=== PATIENT | female | born 1940 | race Caucasian/White ===

== ENCOUNTER → 2018-03-09 | Outpatient (CLI) | payer MEDICARE, OTHER ==
[2018-03-09 13:56] LABS: ABSOLUTE BASOPHILS # (AUTO) 0.1 10^3/uL (0.0-0.2); ABSOLUTE EOSINOPHILS # (AUTO) 0.1 10^3/uL (0.0-0.6); ABSOLUTE LYMPHOCYTES (AUTO) 1.6 10^3/uL (0.5-4.7); ABSOLUTE MONOCYTES (AUTO) 0.7 10^3/uL (0.1-1.4); ABSOLUTE NEUT (AUTO) 4.6 10^3/uL (1.7-8.2); BASOPHILS % (AUTO) 0.7 % (0-2); HEMATOCRIT 31.8 % (36.0-47.0); HEMOGLOBIN 10.8 g/dL (12.0-15.5); LYMPHOCYTES % (AUTO) 22.4 % (13-45); MEAN CORPUSCULAR HEMOGLOBIN 35.6 pg (27.0-33.4); MEAN CORPUSCULAR HGB CONC 33.9 g/dL (32.0-36.0); MEAN CORPUSCULAR VOLUME 105 fl (80-97); MONOCYTES % (AUTO) 10.4 % (3-13); PLATELET COUNT 189 10^3/uL (150-450); RED BLOOD COUNT 3.03 10^6/uL (3.72-5.28); RED CELL DISTRIBUTION WIDTH 14.4 % (11.5-14.0); SEGMENTED NEUTROPHILS % (AUTO) 64.5 % (42-78); TOTAL CELLS COUNTED % (AUTO) 100 %; WHITE BLOOD COUNT 7.1 10^3/uL (4.0-10.5)
[2018-03-09 14:03] LABS: APPEARANCE,URINE SLIGHTLY-CLOUDY; BILIRUBIN,URINE NEGATIVE (NEGATIVE); COLOR,URINE YELLOW; GLUCOSE, URINE NEGATIVE (NEGATIVE); KETONES,URINE NEGATIVE (NEGATIVE); LEUKOCYTE ESTERASE,URINE TRACE (NEGATIVE); NITRITE,URINE NEGATIVE (NEGATIVE); PROTEIN,URINE NEGATIVE (NEGATIVE); UROBILINOGEN,URINE NEGATIVE mg/dL (<2.0)
[2018-03-09 14:22] LABS: ANION GAP 14 (5-19); BLOOD UREA NITROGEN 24 mg/dL (7-20); CALCIUM 9.6 mg/dL (8.4-10.2); CARBON DIOXIDE 27 mmol/L (22-30); CHLORIDE 105 mmol/L (98-107); GLUCOSE 99 mg/dL (75-110); SODIUM 145.8 mmol/L (137-145)
--- NOTE | 2018-03-09 14:24 | RADIOLOGY REPORT (SQ) ---
EXAM DESCRIPTION: CHEST PA/LATERAL COMPLETED DATE/TIME: 03/09/2018 1:55 pm REASON FOR STUDY: ESSENTIAL (PRIMARY) HYPERTENSION COMPARISON: Two-view chest 02/08/2008 EXAM PARAMETERS: NUMBER OF VIEWS: two views TECHNIQUE: Digital Frontal and Lateral radiographic views of the chest acquired. RADIATION DOSE: NA LIMITATIONS: none FINDINGS: LUNGS AND PLEURA: No opacities, masses or pneumothorax. No pleural effusion. MEDIASTINUM AND HILAR STRUCTURES: No masses or contour abnormalities. HEART AND VASCULAR STRUCTURES: Heart normal size. No evidence for failure. BONES: Osteoporotic. No acute fracture. Old healed left lower lateral rib fractures HARDWARE: Clips right upper quadrant post cholecystectomy OTHER: No other significant finding. IMPRESSION: No acute findings TECHNICAL DOCUMENTATION: JOB ID: [id number] [employer]- All Rights Reserved Reading location - IP/workstation name: [facility]-[email or web address]
--- NOTE | 2018-03-09 18:28 | EKG REPORT ---
SEVERITY:- NORMAL ECG - SINUS RHYTHM : Confirmed by: Fernando Garcia MD 09-Mar-2018 18:27:20
== END ==
LOC: OD 13:19
PROVIDERS: ATTEND Orthopaedic Surgery
DX: I10 Essential (primary) hypertension (principal)
CPT/HCPCS: 36415; 71046; 80048; 81001; 85025; 93005; 93010

== ENCOUNTER 2018-04-06 06:42 | Inpatient (IN) | payer MEDICARE, OTHER ==
[~2018-04-06 06:42] MED LIST: BUPIVACAINE INJ/PF LIPOSOME/PF 266 MG/20 ML SDV INJ PRN; BUPIVACAINE INJ/PF LIPOSOME/PF 266 MG/20 ML SDV ONE; CEFTRIAXONE INJ 1000 MG VIAL IV PRN; IBUPROFEN 800 MG in NORMAL SALINE 250 ML IV SCH; LACTATED RINGERS 1000 ML IV PRN; LANSOPRAZOLE 15 MG TAB.RAP.DR PO PRN; LIDOCAINE 0.5% INJ-PF (5 MG/ML) 50 ML SDV SUBCUT PRN; OXYCODONE HCL SR 10 MG TABLET PO PRN; VANCOMYCIN HCL 1,000 MG in DEXTROSE 5%-WATER 250 ML IV PRN
[2018-04-06] MEDS ORDERED: FENTANYL CITRATE INJ/PF 250 MCG/5 ML AMPULE ONE (06:59)
[2018-04-06] MEDS ORDERED: MIDAZOLAM 2 MG/2 ML INJ ONE (06:59)
[2018-04-06] MEDS ORDERED: FENTANYL CITRATE INJ/PF 100 MCG/2 ML AMPUL ONE ×2 (06:59→11:32)
[2018-04-06] MEDS ORDERED: ACETAMINOPHEN 0 MG/0 ML RTUPB IV ONE (07:00)
[2018-04-06] MEDS ORDERED: MORPHINE SULFATE 10 MG/ML INJ ONE (07:00)
[2018-04-06] MEDS ORDERED: PROPOFOL INJ 200 MG/20 ML VIAL IV ONE (07:00)
[2018-04-06] MEDS ORDERED: EPHEDRINE SULFATE INJ 50 MG/1 ML AMPULE ONE (07:00)
[2018-04-06] MEDS ORDERED: LIDOCAINE 2% INJ-PF (20 MG/ML) 10 ML AMPUL ONE (07:28)
[2018-04-06] MEDS ORDERED: CEFAZOLIN INJ 1 GM VIAL ONE (08:02)
[2018-04-06] MEDS ORDERED: TRANEXAMIC ACID INJ/PF 1,000 MG/10 ML SDV IV ONE (08:07)
[2018-04-06] MEDS ORDERED: FENTANYL CITRATE INJ/PF 100 MCG/2 ML AMPUL IV PRN ×3 (09:42)
[2018-04-06] MEDS ORDERED: DIPHENHYDRAMINE HCL 50 MG/ML VIAL IV PRN ×2 (09:42→10:53)
[2018-04-06] MEDS ORDERED: MORPHINE SULFATE 10 MG/ML INJ IV PRN ×3 (09:42→10:53)
[2018-04-06] MEDS ORDERED: PROMETHAZINE HCL INJ 25 MG/1 ML VIAL IV PRN (09:42)
--- NOTE | 2018-04-06 10:51 | Operative Report ---
Operative Report DATE OF SURGERY: 04/06/18 PREOPERATIVE DIAGNOSIS: Right rotator cuff arthropathy OPERATION: Right reverse shoulder arthroplasty SURGEON: DARRELL ESCOBAR ANESTHESIA: GA TISSUE REMOVED OR ALTERED: Bone to pathology COMPLICATIONS: Spiral fracture of the humeral shaft ESTIMATED BLOOD LOSS: 100 PROCEDURE: With the patient in a beachchair position on the operative table the right upper extremity forequarter prepped and draped in a sterile fashion. A standard deltopectoral approach to the shoulders taken. The humeral head is exposed. Access gained through the articular surface to the humeral canal. It subsequently reamed using a cylindrical reamer from the [employer] total shoulder system and hand reaming until a 13 mm or is seated. Subsequently was broached until a 13 broach is seated. My clinical intuition is that the 13 broach was small and did not have cortical contact. It subsequently removed and the canal was next reamed to a 14 mm reamer. During the process of the 14 mm reamer with a cylindrical reamer and hand control a spiral fracture to the humeral shaft is encountered. The 13 reamer is then placed down the humeral canal and the fracture exposed. The radial nerve is closed and protected throughout its course. 3 cables were placed around the humeral fracture with the underlying reamer in place. A size 12 long fracture stem was placed down the humeral canal. The fracture reduction and stability are assessed using fluoroscopy. It appears that the fracture stem which is the longest available just barely bypasses the distal aspect of the fracture. The glenoid is now exposed. Central pin is placed through the glenoid followed by a face reamer. The 28 mm glenoid baseplate is screwed in position with a single central screw and 4 rim screws. The 36 mm glenoid sphere is impacted onto the glenoid baseplate. A 4 mm polyethylene spacer was placed onto the proximal humerus for trial reduction. A trial reduction is performed and there is acceptable stability with the reduction. The trial proximal humerus component is removed. The final was impacted into position. The shoulder is reduced. The anterior capsule and subscapularis are reapproximated to the proximal humerus using #2 FiberWire suture. The wound is nicolette irrigated with pulse lavage. Is closed using Vicryl followed by lynne. Sterile compressive dressing and shoulder immobilizer applied.
[2018-04-06] MEDS ORDERED: ONDANSETRON HCL INJ/PF 4 MG/2 ML SDV IV PRN (10:53)
[2018-04-06] MEDS ORDERED: ACETAMINOPHEN 325 MG TABLET PO PRN (10:53)
[2018-04-06] MEDS ORDERED: MORPHINE SULFATE 10 MG/ML INJ IM PRN (10:53)
[2018-04-06] MEDS ORDERED: ZOLPIDEM TARTRATE 5 MG TABLET PO PRN (10:53)
[2018-04-06] MEDS ORDERED: MAG HYDROX/AL HYDROX/SIMETH SUSP 30 ML UDCUP PO PRN (10:53)
[2018-04-06] MEDS ORDERED: RINGERS SOLUTION,LACTATED 1,000 ML IV PRN (10:53)
[2018-04-06] MEDS ORDERED: ONDANSETRON 4 MG TAB.RAPDIS PO PRN (10:53)
--- NOTE | 2018-04-06 11:07 | RADIOLOGY REPORT (SQ) ---
EXAM DESCRIPTION: SHOULDER RIGHT 1 VIEW; NO CHG FLUORO COMPLETED DATE/TIME: 04/06/2018 10:58 am REASON FOR STUDY: RIGHT SHOULDER ARTHROPLASTY ASSISTED W/ FLUORO IN OR M19.111 POST-TRAUMATIC OSTEO ARTHRITIS, RIGHT SHOULDER COMPARISON: None. FLUOROSCOPY TIME: Less than 5 seconds 1 digital radiographic image saved to PACS. TECHNIQUE: Intra-operative images acquired during surgical procedure to evaluate progress. NUMBER OF IMAGES: 1 digital radiographic image LIMITATIONS: None. FINDINGS: 1 image saved to PACS demonstrates the distal end of a humerus prosthesis with cerclage wi res around the bone. Spiral fracture [place] bone. IMPRESSION: Intra procedural imaging and fluoro COMMENT: Quality ID 145: Final reports for procedures using fluoroscopy that document radiation exp osure indices, or exposure time and number of fluorographic images (if radiation exposure indices are not available) Please consult full operative report of the attending physician for description of the procedure. TECHNICAL DOCUMENTATION: JOB ID: [id number] [employer]- All Rights Reserved Reading location - IP/workstation name: [email or web address]
--- NOTE | 2018-04-06 11:07 | RADIOLOGY REPORT (SQ) ---
EXAM DESCRIPTION: SHOULDER RIGHT 1 VIEW; NO CHG FLUORO COMPLETED DATE/TIME: 04/06/2018 10:58 am REASON FOR STUDY: RIGHT SHOULDER ARTHROPLASTY ASSISTED W/ FLUORO IN OR M19.111 POST-TRAUMATIC OSTEO ARTHRITIS, RIGHT SHOULDER COMPARISON: None. FLUOROSCOPY TIME: Less than 5 seconds 1 digital radiographic image saved to PACS. TECHNIQUE: Intra-operative images acquired during surgical procedure to evaluate progress. NUMBER OF IMAGES: 1 digital radiographic image LIMITATIONS: None. FINDINGS: 1 image saved to PACS demonstrates the distal end of a humerus prosthesis with cerclage wi res around the bone. Spiral fracture cap[place] band bone. IMPRESSION: Intra procedural imaging and fluoro COMMENT: Quality ID 145: Final reports for procedures using fluoroscopy that document radiation exp osure indices, or exposure time and number of fluorographic images (if radiation exposure indices are not available) Please consult full operative report of the attending physician for description of the procedure. TECHNICAL DOCUMENTATION: JOB ID: [id number] [employer]- All Rights Reserved Reading location - IP/workstation name: [email or web address]
--- NOTE | 2018-04-06 12:50 | RADIOLOGY REPORT (SQ) ---
EXAM DESCRIPTION: SHOULDER RIGHT 2 OR MORE VIEWS COMPLETED DATE/TIME: 04/06/2018 11:49 am REASON FOR STUDY: Post-op total shoulder COMPARISON: Intra procedural fluoro same date TECHNIQUE: Postoperative right shoulder two views AP and Y-view LIMITATIONS: None. FINDINGS: Post right shoulder prosthesis. Normal alignment at the glenohumeral joint. Cerclage wir es are present along the mid 3rd humeral diaphysis adjacent to an acute spiral fracture. Bones are osteoporotic. Right ribs, clavicle grossly intact. Skin lynne over the right upper arm. IMPRESSION: Post right shoulder prosthesis films. Normal alignment at the glenohumeral joint. Cerc oksana wires surround the mid 3rd right humeral diaphysis along a spiral fracture in good alignment. TECHNICAL DOCUMENTATION: JOB ID: [id number] [employer]- All Rights Reserved Reading location - IP/workstation name: [facility]
[2018-04-06] MEDS ORDERED: TRANEXAMIC ACID INJ/PF 1,000 MG/10 ML SDV IV SCH (13:00)
[2018-04-06] MEDS: OXYCODONE HCL IR 5 MG TABLET PO PRN (13:21)
[2018-04-06] MEDS: SENNOSIDES/DOCUSATE 8.6-50 MG 1 EACH TABLET PO SCH (17:20)
[2018-04-06] MEDS: GABAPENTIN 300 MG CAPSULE PO SCH (17:21)
[2018-04-06] MEDS ORDERED: (PENDING PHARMACY ID) (Carvedilol [Carvedilol] 25 MG) PO SCH (18:00)
[2018-04-06] MEDS ORDERED: NYSTATIN TOPICAL POWDER 15 GM TP ONE (19:30)
[2018-04-06] MEDS ORDERED: GLYCOPYRROLATE 1 MG/5 ML SYRINGE ONE (19:53)
[2018-04-06] MEDS ORDERED: SUCCINYLCHOLINE CHLORIDE INJ 200 MG/10 ML VIAL ONE (19:53)
[2018-04-06] MEDS ORDERED: NEOSTIGMINE METHYLSULFATE 10 MG/10 ML VIAL ONE (19:53)
[2018-04-06] MEDS ORDERED: DEXAMETHASONE SOD PHOSPHATE INJ 4 MG/1 ML VIAL ONE (19:53)
[2018-04-06] MEDS ORDERED: ONDANSETRON HCL INJ/PF 4 MG/2 ML SDV ONE (19:53)
[2018-04-06] MEDS ORDERED: VECURONIUM BROMIDE INJ 10 MG VIAL IV ONE (19:53)
[2018-04-06] MEDS ORDERED: PHENYLEPHRINE HCL INJ/PF 10 MG/1 ML SDV ONE (19:53)
[2018-04-06] MEDS: CARVEDILOL 12.5 MG TABLET PO SCH (20:49)
[2018-04-06] MEDS: OXYCODONE HCL SR 10 MG TABLET PO SCH (20:50)
[2018-04-06] MEDS: SIMVASTATIN 10 MG TABLET PO SCH (20:50)
[2018-04-06] MEDS: MAGNESIUM OXIDE 400 MG TABLET PO SCH (20:50)
[2018-04-06] MEDS ORDERED: (PENDING PHARMACY ID) (Magnesium Oxide [Magnesium] 400 MG) PO SCH (22:00)
[2018-04-06] MEDS ORDERED: VANCOMYCIN HCL 1,000 MG in DEXTROSE 5%-WATER 250 ML IV ONE (22:53)
[2018-04-06] MEDS: MORPHINE SULFATE 10 MG/ML INJ IV PRN (23:18)
[2018-04-07] MEDS: MORPHINE SULFATE 10 MG/ML INJ IV PRN (02:57)
[2018-04-07] MEDS: LANSOPRAZOLE 30 MG TAB.RAP.DR PO SCH (06:31)
[2018-04-07] MEDS: OXYCODONE HCL IR 5 MG TABLET PO PRN ×2 (06:31→14:53)
--- NOTE | 2018-04-07 06:44 | PDOC PROGRESS REPORT ---
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 Patient is complaining of chronic neck pain and pain in her arm. Physical Exam Vital Signs: Temp Pulse Resp BP Pulse Ox 36.8 C 83 17 131/57 H 96 04/06/18 23:27 04/06/18 23:27 04/06/18 20:00 04/06/18 23:27 04/06/18 23:27 Intake & Output 04/05/18 04/06/18 04/07/18 06:59 06:59 06:59 Intake Total 4594 Output Total 2100 Balance 2494 Physical Exam: Patient is an overweight middle-aged white female lying in hospital bed with an abduction pillow securing the right upper extremity. General appearance: PRESENT: mild distress Head exam: PRESENT: normocephalic Respiratory exam: PRESENT: unlabored Cardiovascular exam: PRESENT: RRR Vascular exam: PRESENT: normal capillary refill GI/Abdominal exam: PRESENT: soft Rectal exam: PRESENT: deferred Musculoskeletal exam: PRESENT: other - Right shoulder dressing is clean dry and intact. There is some small to moderate amount of surrounding ecchymosis. Radial nerve function is intact for both motor and sensory function. Neurological exam: PRESENT: alert, awake, oriented to person, oriented to place , oriented to time, oriented to situation. ABSENT: motor sensory deficit Psychiatric exam: PRESENT: appropriate affect, normal mood. ABSENT: homicidal ideation, suicidal ideation Skin exam: PRESENT: dry, intact, warm. ABSENT: cyanosis, rash Results Laboratory Results: 04/06/18 07:33 04/06/18 04/06/18 07:33 07:33 Potassium 4.3 Blood Type A NEGATIVE Antibody Screen NEGATIVE Impressions: Fluoroscopy 04/06/18 00:00 IMPRESSION: Intra procedural imaging and fluoro Shoulder X-Ray 04/06/18 00:00 IMPRESSION: Post right shoulder prosthesis films. Normal alignment at the glenohumeral joint. Cerclage wires surround the mid 3rd right humeral diaphysis along a spiral fracture in good alignment. Status: Imported from PACS Assessment & Plan - Diagnosis (1) Arthropathy of right shoulder Is this a current diagnosis for this admission?: Yes Plan: 77-year-old white female status post right shoulder arthroplasty. Plan for [facility] facility [facility] on . - Time Time Spent with patient: 15-24 minutes Anticipated discharge: SNF Within: within 48 hours
[2018-04-07 06:51] LABS: HEMATOCRIT 25.1 % (36.0-47.0); HEMOGLOBIN 8.5 g/dL (12.0-15.5); MEAN CORPUSCULAR HEMOGLOBIN 35.6 pg (27.0-33.4); MEAN CORPUSCULAR VOLUME 105 fl (80-97); PLATELET COUNT 152 10^3/uL (150-450); RED BLOOD COUNT 2.39 10^6/uL (3.72-5.28); RED CELL DISTRIBUTION WIDTH 14.1 % (11.5-14.0)
[2018-04-07 07:21] LABS: ANION GAP 11 (5-19); BLOOD UREA NITROGEN 29 mg/dL (7-20); CALCIUM 8.9 mg/dL (8.4-10.2); CARBON DIOXIDE 26 mmol/L (22-30); CHLORIDE 104 mmol/L (98-107); GLUCOSE 138 mg/dL (75-110); POTASSIUM 4.2 mmol/L (3.6-5.0); SODIUM 140.6 mmol/L (137-145)
[2018-04-07] MEDS ORDERED: (PENDING PHARMACY ID) (Duloxetine Hcl [Duloxetine Hcl] 60 MG) PO SCH (10:00)
[2018-04-07] MEDS ORDERED: (PENDING PHARMACY ID) (Telmisartan [Telmisartan] 40 MG) PO SCH (10:00)
[2018-04-07] MEDS ORDERED: (PENDING PHARMACY ID) (Simvastatin [Simvastatin] 20 MG) PO SCH (10:00)
[2018-04-07] MEDS: GABAPENTIN 300 MG CAPSULE PO SCH ×2 (10:16→17:04)
[2018-04-07] MEDS: PRENATAL VITAMIN W DHA CAPSULE PO SCH (10:16)
[2018-04-07] MEDS: POTASSIUM CHLORIDE 10 MEQ CAPSULE.ER PO SCH (10:16)
[2018-04-07] MEDS: ALLOPURINOL 100 MG TABLET PO SCH (10:16)
[2018-04-07] MEDS: DULOXETINE HCL 30 MG CAPSULE.DR PO SCH (10:16)
[2018-04-07] MEDS: OXYCODONE HCL SR 10 MG TABLET PO SCH ×2 (10:17→21:50)
[2018-04-07] MEDS: FUROSEMIDE 40 MG TABLET PO SCH (10:17)
[2018-04-07] MEDS: SENNOSIDES/DOCUSATE 8.6-50 MG 1 EACH TABLET PO SCH ×2 (10:17→17:04)
[2018-04-07] MEDS: FOLIC ACID 1 MG TABLET PO SCH (10:17)
[2018-04-07] MEDS: LOSARTAN POTASSIUM 50 MG TABLET PO SCH (10:18)
[2018-04-07] MEDS: NYSTATIN TOPICAL POWDER 15 GM TP SCH ×2 (10:21→17:05)
[2018-04-07] MEDS: CARVEDILOL 12.5 MG TABLET PO SCH ×2 (10:21→21:50)
[2018-04-07] MEDS: SIMVASTATIN 10 MG TABLET PO SCH (21:50)
[2018-04-07] MEDS: MAGNESIUM OXIDE 400 MG TABLET PO SCH (21:50)
[2018-04-08 05:11] LABS: HEMATOCRIT 22.6 % (36.0-47.0); MEAN CORPUSCULAR HEMOGLOBIN 36.7 pg (27.0-33.4); MEAN CORPUSCULAR HGB CONC 35.1 g/dL (32.0-36.0); MEAN CORPUSCULAR VOLUME 105 fl (80-97); PLATELET COUNT 149 10^3/uL (150-450); RED BLOOD COUNT 2.16 10^6/uL (3.72-5.28); RED CELL DISTRIBUTION WIDTH 14.3 % (11.5-14.0); WHITE BLOOD COUNT 11.4 10^3/uL (4.0-10.5)
[2018-04-08 05:14] LABS: HEMOGLOBIN 7.9 g/dL (12.0-15.5)
[2018-04-08] MEDS: LANSOPRAZOLE 30 MG TAB.RAP.DR PO SCH (05:38)
[2018-04-08] MEDS ORDERED: BUPIVACAINE INJ/PF LIPOSOME/PF 266 MG/20 ML SDV ONE (09:46)
[2018-04-08] MEDS: OXYCODONE HCL SR 10 MG TABLET PO SCH (10:34)
[2018-04-08] MEDS: CARVEDILOL 12.5 MG TABLET PO SCH ×2 (10:35→22:54)
[2018-04-08] MEDS: ALLOPURINOL 100 MG TABLET PO SCH (10:35)
[2018-04-08] MEDS: LOSARTAN POTASSIUM 50 MG TABLET PO SCH (10:36)
[2018-04-08] MEDS: PRENATAL VITAMIN W DHA CAPSULE PO SCH (10:36)
[2018-04-08] MEDS: FOLIC ACID 1 MG TABLET PO SCH (10:36)
[2018-04-08] MEDS: GABAPENTIN 300 MG CAPSULE PO SCH ×2 (10:36→17:52)
[2018-04-08] MEDS: POTASSIUM CHLORIDE 10 MEQ CAPSULE.ER PO SCH (10:36)
[2018-04-08] MEDS: DULOXETINE HCL 30 MG CAPSULE.DR PO SCH (10:37)
[2018-04-08] MEDS: SENNOSIDES/DOCUSATE 8.6-50 MG 1 EACH TABLET PO SCH ×2 (10:37→17:51)
[2018-04-08] MEDS: FUROSEMIDE 40 MG TABLET PO SCH (10:37)
[2018-04-08] MEDS: NYSTATIN TOPICAL POWDER 15 GM TP SCH ×2 (10:38→17:51)
[2018-04-08] MEDS: SIMVASTATIN 10 MG TABLET PO SCH (22:54)
[2018-04-08] MEDS: MAGNESIUM OXIDE 400 MG TABLET PO SCH (22:54)
[2018-04-09] MEDS: LANSOPRAZOLE 30 MG TAB.RAP.DR PO SCH (05:30)
[2018-04-09 06:04] LABS: ANION GAP 11 (5-19); BLOOD UREA NITROGEN 32 mg/dL (7-20); CALCIUM 8.4 mg/dL (8.4-10.2); CARBON DIOXIDE 25 mmol/L (22-30); CHLORIDE 105 mmol/L (98-107); GLUCOSE 118 mg/dL (75-110); HEMATOCRIT 26.4 % (36.0-47.0); HEMOGLOBIN 9.3 g/dL (12.0-15.5); MEAN CORPUSCULAR HEMOGLOBIN 34.8 pg (27.0-33.4); MEAN CORPUSCULAR HGB CONC 35.1 g/dL (32.0-36.0); PLATELET COUNT 125 10^3/uL (150-450); RED BLOOD COUNT 2.67 10^6/uL (3.72-5.28); RED CELL DISTRIBUTION WIDTH 18.6 % (11.5-14.0); SODIUM 140.6 mmol/L (137-145); WHITE BLOOD COUNT 9.5 10^3/uL (4.0-10.5)
[2018-04-09 06:09] LABS: MEAN CORPUSCULAR VOLUME 99 fl (80-97)
--- NOTE | 2018-04-09 06:47 | PDOC DISCHARGE SUMMARY ---
General - Admit/Disc Date/PCP Admission Date/Primary Care Provider: 04/06/18 06:42 TERRANCE MARINELLI MD Discharge Date: 04/09/18 - Discharge Diagnosis (1) Arthropathy of right shoulder Is this a current diagnosis for this admission?: Yes - Additional Information Resuscitation Status: Full Code Discharge Diet: As Tolerated, Regular Discharge Activity: Balance Activity w/Rest, No Driving, No tub bath Home Medications: Allopurinol [Zyloprim 100 mg Tablet] 200 mg PO DAILY 03/26/18 Calcium Carbonate/Vitamin D3 [Calcium 600 + Vit D Tablet] 1 tab PO DAILY Carvedilol 25 mg PO Q12 03/26/18 Duloxetine HCl 60 mg PO DAILY 03/26/18 Folic Acid 1 mg PO DAILY 03/26/18 Furosemide [Lasix] 40 mg PO DAILY 03/26/18 Gabapentin 300 mg PO QPM 03/26/18 Hydrocortisone/Oatmeal/Aloe/E [Hydrocortisone 1% Cream] 28.4 gm TP ASDIR PRN Infliximab [Remicade Inj 100 mg Vial] 100 mg IV [id number] PRN 03/26/18 Magnesium Oxide [Magnesium] 400 mg PO QHS 03/26/18 Methotrexate Sodium [Methotrexate] 10 mg PO WE@1000 PRN 03/26/18 Pantoprazole Sodium 40 mg PO BID 03/26/18 Potassium Chloride 20 meq PO DAILY 03/26/18 Simvastatin 20 mg PO QHS 03/26/18 Telmisartan 80 mg PO DAILY 03/26/18 Ergocalciferol (Vitamin D2) [Drisdol 50,000 unit (1.25MG) Capsule] 50,000 unit PO WE@1000 04/06/18 Gabapentin [Neurontin 300 mg Capsule] 600 mg PO QHS 04/06/18 Oxycodone HCl [Oxy-Ir 5 mg Tablet] 5 mg PO Q6HP PRN tablet 04/09/18 History of Present Illness History of Present Illness: MARILU RIZO is a 77 year old female The patient is a 77-year-old white female with a combination of an inflammatory arthropathy and rotator cuff arthropathy who is admitted for an elective right reverse shoulder arthroplasty. Hospital Course Hospital Course: Patient is admitted through the operating room where she undergoes a right reverse shoulder arthroplasty which is complicated by an intraoperative humerus fracture. This is treated with an open reduction internal fixation in the operating room. The patient's return to floor in satisfactory condition. She has limited progress with physical therapy. Hematocrit drops to 22% and she receives 2 units of packed red blood cells. She has intermittent low-grade fevers. Physical Exam Vital Signs: Temp Pulse Resp BP Pulse Ox 37.8 C 79 18 117/50 L 92 04/09/18 00:04 04/09/18 00:04 04/09/18 00:04 04/09/18 00:04 04/09/18 00:04 Intake & Output 04/07/18 04/08/18 04/09/18 06:59 06:59 06:59 Intake Total 4594 1040 1896 Output Total 2100 Balance 2494 1040 1896 Weight 95.6 kg General appearance: PRESENT: no acute distress, mild distress, obese Respiratory exam: PRESENT: unlabored Cardiovascular exam: PRESENT: RRR Pulses: PRESENT: normal radial pulses Vascular exam: PRESENT: normal capillary refill GI/Abdominal exam: PRESENT: soft Rectal exam: PRESENT: deferred Extremities exam: PRESENT: other - Right shoulder dressing clean dry and intact. Shoulder abduction pillow in place. Neurovascular examination of the hand is intact. Neurological exam: PRESENT: alert, awake, oriented to person, oriented to place , oriented to time, oriented to situation. ABSENT: motor sensory deficit Psychiatric exam: PRESENT: appropriate affect, normal mood. ABSENT: homicidal ideation, suicidal ideation Skin exam: PRESENT: dry, intact, warm. ABSENT: cyanosis, rash Results Laboratory Results: 04/09/18 04:33 04/09/18 04:33 04/06/18 04/09/18 04/09/18 07:33 04:33 04:33 WBC 9.5 RBC 2.67 L Hgb 9.3 L Hct 26.4 L MCV 99 H D MCH 34.8 H MCHC 35.1 RDW 18.6 H Plt Count 125 L Sodium 140.6 Potassium 4.0 Chloride 105 Carbon Dioxide 25 Anion Gap 11 BUN 32 H Creatinine 1.20 Est GFR ( Amer) 53 L Est GFR (Non-Af Amer) 44 L Glucose 118 H Calcium 8.4 Blood Type A NEGATIVE Antibody Screen NEGATIVE Impressions: Fluoroscopy 04/06/18 00:00 IMPRESSION: Intra procedural imaging and fluoro Shoulder X-Ray 07/09/18 00:00 IMPRESSION: Post right shoulder prosthesis films. Normal alignment at the glenohumeral joint. Cerclage wires surround the mid 3rd right humeral diaphysis along a spiral fracture in good alignment. Status: Imported from PACS Qualifiers - * PATIENT BEING DISCHARGED WITH ANY OF THE FOLLOWING DIAGNOSIS: No VTE patient discharged on overlapping Therapy?: No Reason(s) for not prescribing Overlap Therapy:: Not indicated Plan Discharge Plan: Patient to be discharged to a correction facility for ongoing nursing care as well as occupational therapy for circumduction exercises to the right shoulder. Follow-up with Dr. Mao and [facility] for surgery in 2 weeks for staple removal. Time Spent: Less than 30 Minutes
[2018-04-09] MEDS: SENNOSIDES/DOCUSATE 8.6-50 MG 1 EACH TABLET PO SCH (09:08)
[2018-04-09] MEDS: POTASSIUM CHLORIDE 10 MEQ CAPSULE.ER PO SCH (09:08)
[2018-04-09] MEDS: ALLOPURINOL 100 MG TABLET PO SCH (09:08)
[2018-04-09] MEDS: FUROSEMIDE 40 MG TABLET PO SCH (09:09)
[2018-04-09] MEDS: CARVEDILOL 12.5 MG TABLET PO SCH (09:09)
[2018-04-09] MEDS: DULOXETINE HCL 30 MG CAPSULE.DR PO SCH (09:09)
[2018-04-09] MEDS: FOLIC ACID 1 MG TABLET PO SCH (09:10)
[2018-04-09] MEDS: LOSARTAN POTASSIUM 50 MG TABLET PO SCH (09:10)
[2018-04-09] MEDS: PRENATAL VITAMIN W DHA CAPSULE PO SCH (09:10)
[2018-04-09] MEDS: GABAPENTIN 300 MG CAPSULE PO SCH (09:10)
[2018-04-09] MEDS: NYSTATIN TOPICAL POWDER 15 GM TP SCH (09:13)
[2018-04-09 12:56] VITALS: BP 117/50
== END 2018-04-09 12:55 | DRG 483 ==
LOC: OROUT 06:42 → INOR 06:42 → EDSTATUS 08:45 → 4S 12:21
PROVIDERS: ADMIT Orthopaedic Surgery; ATTEND Orthopaedic Surgery
PROC: 0RRJ00Z Replacement of Right Shoulder Joint with Reverse Ball and Socket Synthetic Substitute, Open Approach (ICD-10-PCS; principal; 2018-04-06 08:45)
DX: M19.111 Post-traumatic osteoarthritis, right shoulder (principal); M06.9 Rheumatoid arthritis, unspecified; E78.00 Pure hypercholesterolemia, unspecified; I10 Essential (primary) hypertension; Z96.642 Presence of left artificial hip joint; Z96.652 Presence of left artificial knee joint; E66.3 Overweight; G89.29 Other chronic pain; Z79.899 Other long term (current) drug therapy; Z88.0 Allergy status to penicillin; Z88.8 Allergy status to other drugs, medicaments and biological substances; Z98.42 Cataract extraction status, left eye; Z98.41 Cataract extraction status, right eye
CPT/HCPCS: 01630; 36415; 36430; 80048; 84132; 85027; 86850; 86900; 86901; 86920; 88304; 88311; 94799; C9290; G8987-GO; G8988-GO; J0131; J0330; J0690; J0696; J1100; J1741; J2250; J2270; J2370; J2405; J2704; J3010; J3370; J3490; J7050; J7060; L3650; P9016

== ENCOUNTER 2018-05-08 22:42 | Emergency (ER) | payer MEDICARE, OTHER ==
[2018-05-08 23:13] VITALS: BP 145/55
--- NOTE | 2018-05-09 00:48 | RADIOLOGY REPORT (SQ) ---
PLAIN FILM SHOULDER right CLINICAL HISTORY: Patient is status post total shoulder arthoplasty. TECHNIQUE: One view of the Shoulder are submitted for review. COMPARISON: 06 April 2018 FINDINGS: Total shoulder arthroplasty hardware is demonstrated. There is no evidence for acute fracture of the orthopedic hardware. Alignment is near anatomical. Bone mineralization is decreased. Edema and subcutaneous air seen within the soft tissues. IMPRESSION: Status post total shoulder arthoplasty without evidence of orthopedic hardware complication.
--- NOTE | 2018-05-09 00:50 | RADIOLOGY REPORT (SQ) ---
PLAIN FILM HIP left CLINICAL HISTORY: 77-year-old female who fell now with hip pain. TECHNIQUE: 2 views of the hip are submitted for review. COMPARISON: None FINDINGS: Postoperative changes of the left hip are demonstrated with arthroplasty hardware. Bone mineralization is decreased. Bone mineralization is within normal limits. Soft tissues are minimally edematous. Nondisplaced hairline fracture seen through the inferior left pubic symphysis. IMPRESSION: Postoperative changes of the left hip. Nondisplaced hairline fracture seen through the inferior left pubic symphysis.
--- NOTE | 2018-05-09 02:31 | ER Document Report ---
ED General - General Chief Complaint: Fall Stated Complaint: FALL/ARM PAIN Time Seen by Provider: 05/08/18 23:16 TRAVEL OUTSIDE OF THE [place] IN LAST 30 DAYS: No - HPI Patient complains to provider of: fall Notes: Patient states she was in a wheelchair today when she slid out and fell on her right side. Patient has recently had surgery of her right shoulder. Patient also is complaining of some left hip pain. Patient otherwise denies any other issues denies any other areas of pain. No loss consciousness - Related Data Allergies/Adverse Reactions: hydroxychloroquine sulfate [From Plaquenil] Allergy (Mild, Verified 03/11/18 11: 34) Generalized Itching Sulfa (Sulfonamide Antibiotics) Allergy (Mild, Verified 03/11/18 11:34) Unknown reaction TAPE Allergy (Mild, Uncoded 04/08/11 11:03) Blisters Past Medical History - Social History Smoking Status: Never Smoker Family History: Reviewed & Not Pertinent Patient has suicidal ideation: No Patient has homicidal ideation: No - Past Medical History Cardiac Medical History: Reports: Hx Hypercholesterolemia, Hx Hypertension, Hx Heart Murmur Denies: Hx Atrial Fibrillation, Hx Congestive Heart Failure, Hx Coronary Artery Disease, Hx Heart Attack, Hx Peripheral Vascular Disease, Hx Pulmonary Embolism Pulmonary Medical History: Reports: Hx Bronchitis, Hx Sleep Apnea - uses CPAP Denies: Hx Asthma, Hx Pneumonia, Hx Respiratory Failure, Hx Tuberculosis Neurological Medical History: Denies: Hx Cerebrovascular Accident, Hx Seizures Endocrine Medical History: Denies: Hx Hyperthyroidism, Hx Hypothyroidism Renal/ Medical History: Denies: Hx End Stage Renal Disease, Hx Kidney Stones, Hx Peritoneal Dialysis Malignancy Medical History: Denies: Hx Leukemia, Hx Lung Cancer GI Medical History: Reports: Hx Gastroesophageal Reflux Disease, Hx Ulcer. Denies: Hx Crohn's Disease, Hx Hepatitis, Hx Hiatal Hernia, Hx Irritable Bowel, Hx Liver Failure, Hx Pancreatitis Musculoskeletal Medical History: Reports Hx Arthritis, Denies Hx Fibromyalgia, Denies Hx Muscular Dystrophy Traumatic Medical History: Denies: Hx Fractures Infectious Medical History: Denies: Hx Hepatitis, Hx HIV Past Surgical History: Reports: Hx Cholecystectomy, Hx Orthopedic Surgery - right shoulder. Denies: Hx Appendectomy, Hx Bowel Surgery, Hx Section , Hx Colostomy, Hx Coronary Artery Bypass Graft, Hx Gastric Bypass Surgery, Hx Herniorrhaphy, Hx Hysterectomy, Hx Mastectomy, Hx Open Heart Surgery, Hx Pacemaker, Hx Tonsillectomy, Hx Tubal Ligation - Immunizations Hx Pneumococcal Vaccination: 05/30/17 Review of Systems - Review of Systems Constitutional: No symptoms reported EENT: No symptoms reported Cardiovascular: No symptoms reported Respiratory: No symptoms reported Gastrointestinal: No symptoms reported Genitourinary: No symptoms reported Female Genitourinary: No symptoms reported Musculoskeletal: Other - Right ankle left hip Skin: No symptoms reported Hematologic/Lymphatic: No symptoms reported Neurological/Psychological: No symptoms reported Physical Exam - Vital signs Vitals: Temp Pulse Resp BP Pulse Ox 98.1 F 70 16 145/55 H 97 05/08/18 23:12 05/08/18 23:12 05/08/18 23:12 05/08/18 23:12 05/08/18 23:12 Interpretation: Normal - General General appearance: Appears well, Alert - HEENT Head: Normocephalic, Atraumatic Eyes: Normal Pupils: PERRL - Respiratory Respiratory status: No respiratory distress Chest status: Nontender Breath sounds: Normal Chest palpation: Normal - Cardiovascular Rhythm: Regular Heart sounds: Normal auscultation Murmur: No - Abdominal Inspection: Normal Distension: No distension Bowel sounds: Normal Tenderness: Nontender Organomegaly: No organomegaly - Back Back: Normal, Nontender - Extremities General upper extremity: Nontender, Normal color, Normal ROM, Normal temperature. No: Normal inspection - With shoulder examination shows postsurgical changes no signs of infection General lower extremity: Normal inspection, Nontender, Normal color, Normal ROM , Normal temperature, Austin's sign - Neurological Neuro grossly intact: Yes Cognition: Normal Orientation: AAOx4 [place] Coma Scale Eye Opening: Spontaneous Neisha Coma Scale Verbal: Oriented Neisha Coma Scale Motor: Obeys Commands [place] Coma Scale Total: 15 Speech: Normal Motor strength normal: LUE, RUE, LLE, RLE Sensory: Normal - Psychological Associated symptoms: Normal affect, Normal mood - Skin Skin Temperature: Warm Skin Moisture: Dry Skin Color: Normal Course - Re-evaluation Re-evalutation: 05/09/18 05:44 Patient coming in for evaluation after she slid out of her wheelchair. Patient had no signs of infection on her shoulder. X-ray was negative. Patient's hip x -ray does show a possible hairline fracture of the inferior pubic symphysis. Patient otherwise has no other acute etiologies reviewed patient results patient will be discharged home - Vital Signs Vital signs: Temp Pulse Resp BP Pulse Ox 98.1 F 70 16 145/55 H 97 05/08/18 23:12 05/08/18 23:12 05/08/18 23:12 05/08/18 23:12 05/08/18 23:12 Discharge - Discharge Clinical Impression: Fall Qualifiers: Encounter type: initial encounter Qualified Code(s): W19.XXXA - Unspecified fall, initial encounter Fracture of left inferior pubic ramus Qualifiers: Encounter type: initial encounter Fracture type: closed Qualified Code(s): S32.592A - Other specified fracture of left pubis, initial encounter for closed fracture Condition: Good Disposition: HOME, SELF-CARE Instructions: Pelvic Fracture ([facility]) Additional Instructions: X-ray of the hip that showed a hairline fracture through the inferior left pubic symphysis. He can still bear weight some this is more likely etiology of the pain left side of her hip. This more likely from her fall the night. We recommend taking Tylenol for pain control. Follow-up with your primary care physician. The x-ray of your shoulder does not show any acute bony pathology.
== END 2018-05-09 02:46 | disposition home or self-care (01) ==
LOC: ER 22:42
DX: S32.592A Other specified fracture of left pubis, initial encounter for closed fracture (principal); M25.552 Pain in left hip; W05.0XXA Fall from non-moving wheelchair, initial encounter; Z96.611 Presence of right artificial shoulder joint; Z88.8 Allergy status to other drugs, medicaments and biological substances; Z88.2 Allergy status to sulfonamides; Z91.048 Other nonmedicinal substance allergy status; I10 Essential (primary) hypertension
CPT/HCPCS: 99283

== ENCOUNTER 2019-06-27 13:11 | Inpatient (IN) | payer MEDICARE, OTHER ==
[2019-06-27] MEDS ORDERED: NORMAL SALINE 1000 ML 1,000 ML IV ONE ×2 (13:25→14:04)
[2019-06-27] MEDS ORDERED: ACETAMINOPHEN 325 MG TABLET PO ONE (13:25)
--- NOTE | 2019-06-27 13:42 | ER Document Report ---
ED Fever - General Chief Complaint: Fever Stated Complaint: FEVER Time Seen by Provider: 06/27/19 13:24 TRAVEL OUTSIDE OF THE [place] IN LAST 30 DAYS: No - HPI Notes: Patient is a 78-year-old female that presents to the emergency department for chief complaint of confusion. Patient is accompanied by her son who is providing HPI. Patient is unable to provide HPI given acuity of condition. Son states he last talked to her yesterday afternoon. A cousin went over today to check on her and she was found on the floor. Patient was reportedly lethargic and difficult to wake when the cousin found her. EMS brought the patient to the emergency room. It is unknown if she had any fall. Patient is oriented to person only and not able to answer any further questions. EMS reports she was febrile. HPI is limited because of patient's acuity of condition. Past Medical History: Reviewed in chart Past Surgical History: Reviewed in chart Social History: Patient lives at home independently. No reported alcohol or tobacco abuse Family History: Reviewed and noncontributory for presenting illness Allergies: Reviewed, see documented allergy list. REVIEW OF SYSTEMS: Unable to obtain because of acuity of condition PHYSICAL EXAMINATION: Vital signs reviewed, nursing noted reviewed. GENERAL: ill-appearing but alert, well-nourished and in no acute distress. HEAD: Atraumatic, normocephalic. EYES: Eyes appear normal, extraocular movements intact, sclera anicteric, conjunctiva are normal. ENT: No facial bone tenderness, nares patent, oropharynx clear without exudates. Dry mucous membranes. NECK: Midline spinal tenderness, normal range of motion, supple without lymphadenopathy LUNGS: Breath sounds diminished to auscultation bilaterally and equal. No wheezes rales or rhonchi. Mild tachypnea without accessory muscle use. HEART: Regular rate and rhythm without murmurs ABDOMEN: Soft, nontender, normoactive bowel sounds. No rebound, guarding, or rigidity. No masses appreciated. EXTREMITIES: Nontender, good range of motion. 1+ pitting edema bilateral legs, symmetric. NEUROLOGICAL: Alert. Oriented to person only. Moves all extremities spontaneously Motor and sensory grossly intact on exam. SKIN: Warm, Dry, normal turgor, no rashes or lesions noted on exposed skin - Related Data Allergies/Adverse Reactions: hydroxychloroquine sulfate [From Plaquenil] Allergy (Mild, Verified 03/11/18 11:34) Generalized Itching Sulfa (Sulfonamide Antibiotics) Allergy (Mild, Verified 03/11/18 11:34) Unknown reaction TAPE Allergy (Mild, Uncoded 04/08/11 11:03) Blisters Past Medical History - Social History Smoking Status: Never Smoker Family History: Reviewed & Not Pertinent - Past Medical History Cardiac Medical History: Reports: Hx Hypercholesterolemia, Hx Hypertension, Hx Heart Murmur Denies: Hx Atrial Fibrillation, Hx Congestive Heart Failure, Hx Coronary Artery Disease, Hx Heart Attack, Hx Peripheral Vascular Disease, Hx Pulmonary Embolism Pulmonary Medical History: Reports: Hx Bronchitis, Hx Sleep Apnea - uses CPAP Denies: Hx Asthma, Hx Pneumonia, Hx Respiratory Failure, Hx Tuberculosis Neurological Medical History: Denies: Hx Cerebrovascular Accident, Hx Seizures Endocrine Medical History: Denies: Hx Hyperthyroidism, Hx Hypothyroidism Renal/ Medical History: Denies: Hx End Stage Renal Disease, Hx Kidney Stones, Hx Peritoneal Dialysis Malignancy Medical History: Denies: Hx Leukemia, Hx Lung Cancer GI Medical History: Reports: Hx Gastroesophageal Reflux Disease, Hx Ulcer. Denies: Hx Crohn's Disease, Hx Hepatitis, Hx Hiatal Hernia, Hx Irritable Bowel, Hx Liver Failure, Hx Pancreatitis Musculoskeletal Medical History: Reports Hx Arthritis, Denies Hx Fibromyalgia, Denies Hx Muscular Dystrophy, Denies Hx Systemic Lupus Erythematosus Traumatic Medical History: Denies: Hx Fractures Infectious Medical History: Denies: Hx Hepatitis, Hx HIV Past Surgical History: Reports: Hx Cholecystectomy, Hx Orthopedic Surgery - right shoulder. Denies: Hx Appendectomy, Hx Bowel Surgery, Hx Section, Hx Colostomy, Hx Coronary Artery Bypass Graft, Hx Gastric Bypass Surgery, Hx Herniorrhaphy, Hx Hysterectomy, Hx Mastectomy, Hx Open Heart Surgery, Hx Pacemaker, Hx Tonsillectomy, Hx Tubal Ligation - Immunizations Hx Pneumococcal Vaccination: 05/30/17 Physical Exam - Vital signs Vitals: Resp Pulse Ox 21 H 93 06/27/19 13:32 06/27/19 13:32 Course - Re-evaluation Re-evalutation: 06/27/19 13:42 Vitals reviewed. Nursing notes reviewed. Patient is alert and in no acute distress however she is febrile and ill-appearing. Blood cultures and urine culture have been ordered for concern of sepsis. Patient started on IV fluids and placed on telemetry monitoring. She was given Tylenol for her fever. EKG shows no dysrhythmia or ischemic changes. 06/27/19 15:20 Patient reevaluated after fluid bolus and has been improving. She is still alert and is now more conversational. Oriented now to person and place but still disoriented to time. Mucous membranes are beginning to look moist. Patient's lab work is consistent with acute rhabdomyolysis and renal failure. She has no severe electrolyte derangements. Urinalysis is negative for infec tion. Chest x-ray shows no underlying pneumonia. She does have a leukocytosis of 14 which may be stress reaction from her rhabdomyolysis. Her lactic acid is negative. At this point she is having no intra-abdominal symptoms to suggest intra-abdominal infection. Antibiotics not indicated since a source of infection is not clear. She will be aggressively rehydrated for her rhabdomyolysis and admitted to the hospital for further monitoring. Care discussed with Dr. Almazan who has accepted admission. Family at bedside and in agreement with plan of care. Laboratory 06/27/19 06/27/19 06/27/19 12:45 12:45 12:45 WBC 14.1 H RBC 2.98 L Hgb 10.9 L Hct 32.6 L MCV 109 H MCH 36.4 H MCHC 33.4 RDW 14.7 H Plt Count 192 Lymph % (Auto) Not Reportable Amelia % (Auto) Not Reportable Eos % (Auto) Not Reportable Baso % (Auto) Not Reportable Absolute Neuts (auto) Not Reportable Absolute Lymphs (auto) Not Reportable Absolute Monos (auto) Not Reportable Absolute Eos (auto) Not Reportable Absolute Basos (auto) Not Reportable Total Counted 100 Seg Neutrophils % Not Reportable Seg Neuts % (Manual) 93 H Lymphocytes % (Manual) 5 L Monocytes % (Manual) 2 L Eosinophils % (Manual) 0 Basophils % (Manual) 0 Abs Neuts (Manual) 13.1 H Abs Lymphs (Manual) 0.7 Abs Monocytes (Manual) 0.3 Absolute Eos (Manual) 0.0 Abs Basophils (Manual) 0.0 Platelet Comment ADEQUATE Anisocytosis SLIGHT Macrocytosis 1+ PT INR VBG pH VBG pCO2 VBG HCO3 VBG Base Excess Sodium 140.1 Potassium 4.8 Chloride 99 Carbon Dioxide 27 Anion Gap 14 BUN 67 H Creatinine 3.42 H Est GFR ( Amer) 16 L Est GFR (MDRD) Non-Af 13 L Glucose 147 H Lactic Acid Calcium 9.8 Total Bilirubin 1.1 Direct Bilirubin 0.3 Neonat Total Bilirubin Not Reportable Neonat Direct Bilirubin Not Reportable Neonat Indirect Bili Not Reportable AST 73 H ALT 25 Alkaline Phosphatase 117 Creatine Kinase 2008 H CK-MB (CK-2) 21.60 H Troponin I < 0.012 Total Protein 7.4 Albumin 4.5 Urine Color Urine Appearance Urine pH Ur Specific Ripley Urine Protein Urine Glucose (UA) Urine Ketones Urine Blood Urine Nitrite Urine Bilirubin Urine Urobilinogen Ur Leukocyte Esterase Urine WBC (Auto) U Hyaline Cast (Auto) Urine Bacteria (Auto) Squamous Epi Cells Auto Urine Mucus (Auto) Urine Ascorbic Acid 06/27/19 06/27/19 06/27/19 12:45 14:07 14:07 WBC RBC Hgb Hct MCV MCH MCHC RDW Plt Count Lymph % (Auto) Amelia % (Auto) Eos % (Auto) Baso % (Auto) Absolute Neuts (auto) Absolute Lymphs (auto) Absolute Monos (auto) Absolute Eos (auto) Absolute Basos (auto) Total Counted Seg Neutrophils % Seg Neuts % (Manual) Lymphocytes % (Manual) Monocytes % (Manual) Eosinophils % (Manual) Basophils % (Manual) Abs Neuts (Manual) Abs Lymphs (Manual) Abs Monocytes (Manual) Absolute Eos (Manual) Abs Basophils (Manual) Platelet Comment Anisocytosis Macrocytosis PT 15.3 INR 1.20 VBG pH 7.39 VBG pCO2 41.6 VBG HCO3 24.7 VBG Base Excess -0.2 Sodium Potassium Chloride Carbon Dioxide Anion Gap BUN Creatinine Est GFR ( Amer) Est GFR (MDRD) Non-Af Glucose Lactic Acid 1.3 Calcium Total Bilirubin Direct Bilirubin Neonat Total Bilirubin Neonat Direct Bilirubin Neonat Indirect Bili AST ALT Alkaline Phosphatase Creatine Kinase CK-MB (CK-2) Troponin I Total Protein Albumin Urine Color Urine Appearance Urine pH Ur Specific Ripley Urine Protein Urine Glucose (UA) Urine Ketones Urine Blood Urine Nitrite Urine Bilirubin Urine Urobilinogen Ur Leukocyte Esterase Urine WBC (Auto) U Hyaline Cast (Auto) Urine Bacteria (Auto) Squamous Epi Cells Auto Urine Mucus (Auto) Urine Ascorbic Acid 06/27/19 14:43 WBC RBC Hgb Hct MCV MCH MCHC RDW Plt Count Lymph % (Auto) Amelia % (Auto) Eos % (Auto) Baso % (Auto) Absolute Neuts (auto) Absolute Lymphs (auto) Absolute Monos (auto) Absolute Eos (auto) Absolute Basos (auto) Total Counted Seg Neutrophils % Seg Neuts % (Manual) Lymphocytes % (Manual) Monocytes % (Manual) Eosinophils % (Manual) Basophils % (Manual) Abs Neuts (Manual) Abs Lymphs (Manual) Abs Monocytes (Manual) Absolute Eos (Manual) Abs Basophils (Manual) Platelet Comment Anisocytosis Macrocytosis PT INR VBG pH VBG pCO2 VBG HCO3 VBG Base Excess Sodium Potassium Chloride Carbon Dioxide Anion Gap BUN Creatinine Est GFR ( Amer) Est GFR (MDRD) Non-Af Glucose Lactic Acid Calcium Total Bilirubin Direct Bilirubin Neonat Total Bilirubin Neonat Direct Bilirubin Neonat Indirect Bili AST ALT Alkaline Phosphatase Creatine Kinase CK-MB (CK-2) Troponin I Total Protein Albumin Urine Color YELLOW Urine Appearance CLEAR Urine pH 5.0 Ur Specific Ripley 1.013 Urine Protein NEGATIVE Urine Glucose (UA) NEGATIVE Urine Ketones NEGATIVE Urine Blood LARGE H Urine Nitrite NEGATIVE Urine Bilirubin NEGATIVE Urine Urobilinogen NEGATIVE Ur Leukocyte Esterase NEGATIVE Urine WBC (Auto) 1 U Hyaline Cast (Auto) 25 Urine Bacteria (Auto) TRACE Squamous Epi Cells Auto 4 Urine Mucus (Auto) RARE Urine Ascorbic Acid NEGATIVE Chest X-Ray 06/27/19 13:25 IMPRESSION: LOW LUNG VOLUMES. NO SIGNIFICANT RADIOGRAPHIC FINDING IN THE CHEST. Cervical Spine CT 06/27/19 13:38 IMPRESSION: CHRONIC DEGENERATIVE CHANGES. NO ACUTE FINDINGS. Head CT 06/27/19 13:38 IMPRESSION: CHRONIC CHANGES OF ATROPHY AND MICROVASCULAR ISCHEMIA. NO ACUTE PROCESS. EVIDENCE OF ACUTE STROKE: NO. - Vital Signs Vital signs: Temp Pulse Resp BP Pulse Ox 22 H 107/85 95 06/27/19 15:00 06/27/19 14:07 06/27/19 15:00 - Laboratory Result Diagrams: 06/27/19 12:45 06/27/19 12:45 Laboratory results interpreted by me: 06/27/19 06/27/19 06/27/19 12:45 12:45 12:45 WBC 14.1 H RBC 2.98 L Hgb 10.9 L Hct 32.6 L MCV 109 H MCH 36.4 H RDW 14.7 H Seg Neuts % (Manual) 93 H Lymphocytes % (Manual) 5 L Monocytes % (Manual) 2 L Abs Neuts (Manual) 13.1 H BUN 67 H Creatinine 3.42 H Est GFR ( Amer) 16 L Est GFR (MDRD) Non-Af 13 L Glucose 147 H AST 73 H Creatine Kinase 2008 H CK-MB (CK-2) 21.60 H Urine Blood 06/27/19 14:43 WBC RBC Hgb Hct MCV MCH RDW Seg Neuts % (Manual) Lymphocytes % (Manual) Monocytes % (Manual) Abs Neuts (Manual) BUN Creatinine Est GFR ( Amer) Est GFR (MDRD) Non-Af Glucose AST Creatine Kinase CK-MB (CK-2) Urine Blood LARGE H - EKG Interpretation by Me Additional EKG results interpreted by me: 06/27/19 13:41 Interpreted by myself 1328: Normal sinus rhythm, rate 88, normal axis, no STEMI, no ectopy Discharge - Discharge Clinical Impression: Rhabdomyolysis Qualifiers: Rhabdomyolysis type: non-traumatic Qualified Code(s): M62.82 - Rhabdomyolysis Renal failure Qualifiers: Renal failure chronicity: acute Acute renal failure type: unspecified Qualified Code(s): N17.9 - Acute kidney failure, unspecified Altered mental status Qualifiers: Altered mental status type: disorientation Qualified Code(s): R41.0 - Disorientation, unspecified Condition: Stable Disposition: ADMITTED INPATIENT Admitting Provider: Tha (Hospitalist) Unit Admitted: Telemetry
[2019-06-27 13:43] LABS: PROTHROMBIN TIME 15.3 SEC (11.4-15.4)
--- NOTE | 2019-06-27 13:56 | RADIOLOGY REPORT (SQ) ---
EXAM DESCRIPTION: CHEST SINGLE VIEW COMPLETED DATE/TIME: 06/27/2019 1:46 pm REASON FOR STUDY: fever COMPARISON: 02/08/2008 NUMBER OF VIEWS: One view. TECHNIQUE: Single frontal radiographic view of the chest acquired. LIMITATIONS: None. FINDINGS: LUNGS AND PLEURA: Low lung volumes. No opacities, masses or pneumothorax. No pleural eff usion. MEDIASTINUM AND HILAR STRUCTURES: No masses. No contour abnormality. HEART AND VASCULAR STRUCTURES: Normal size. No evidence for failure. BONES: No acute findings. HARDWARE: None in the chest. OTHER: No other significant finding. IMPRESSION: LOW LUNG VOLUMES. NO SIGNIFICANT RADIOGRAPHIC FINDING IN THE CHEST. TECHNICAL DOCUMENTATION: JOB ID: [id number] [employer]- All Rights Reserved Reading location - IP/workstation name: [email or web address]
[2019-06-27 13:57] LABS: ALBUMIN 4.5 g/dL (3.5-5.0); ALKALINE PHOSPHATASE 117 U/L (38-126); ANION GAP 14 (5-19); ASPARTATE AMINO TRANSFERASE 73 U/L (14-36); BILIRUBIN,DIRECT 0.3 mg/dL (0.0-0.4); BILIRUBIN,TOTAL 1.1 mg/dL (0.2-1.3); BLOOD UREA NITROGEN 67 mg/dL (7-20); CALCIUM 9.8 mg/dL (8.4-10.2); CARBON DIOXIDE 27 mmol/L (22-30); CHLORIDE 99 mmol/L (98-107); GLUCOSE 147 mg/dL (75-110); POTASSIUM 4.8 mmol/L (3.6-5.0); TOTAL PROTEIN 7.4 g/dL (6.3-8.2)
[2019-06-27 14:03] LABS: HEMATOCRIT 32.6 % (36.0-47.0); HEMOGLOBIN 10.9 g/dL (12.0-15.5); MEAN CORPUSCULAR HEMOGLOBIN 36.4 pg (27.0-33.4); MEAN CORPUSCULAR HGB CONC 33.4 g/dL (32.0-36.0); MEAN CORPUSCULAR VOLUME 109 fl (80-97); PLATELET COUNT 192 10^3/uL (150-450); RED BLOOD COUNT 2.98 10^6/uL (3.72-5.28); RED CELL DISTRIBUTION WIDTH 14.7 % (11.5-14.0); WHITE BLOOD COUNT 14.1 10^3/uL (4.0-10.5)
[2019-06-27 14:07] LABS: CREATINE KINASE 2008 U/L (30-135)
[2019-06-27 14:10] LABS: TROPONIN I < 0.012 ng/mL
--- NOTE | 2019-06-27 14:26 | RADIOLOGY REPORT (SQ) ---
EXAM DESCRIPTION: CT HEAD WITHOUT COMPLETED DATE/TIME: 06/27/2019 2:05 pm REASON FOR STUDY: trauma COMPARISON: None. TECHNIQUE: Axial images acquired through the brain without intravenous contrast. Images reviewed wi th bone, brain and subdural windows. Additional sagittal and coronal reconstructions were generated. Images stored on PACS. All CT scanners at this facility use dose modulation, iterative reconstruction, and/or weight based d osing when appropriate to reduce radiation dose to as low as reasonably achievable (ALARA). [facility]: Dose Right [facility]: CareDose [facility]: Dose Right [facility]: Teradose 4D [facility]: [employer] RADIATION DOSE: CT Rad equipment meets quality standard of care and radiation dose reduction techniq ues were employed. CTDIvol: 53.2 mGy. DLP: 1203 mGy-cm.mGy. LIMITATIONS: None. FINDINGS: VENTRICLES: Prominent. CEREBRUM: No masses. No hemorrhage. No midline shift. Areas of low density in the white matter mos t likely due to chronic micro-vascular ischemic change. No evidence for acute infarction. CEREBELLUM: No masses. No hemorrhage. No alteration of density. No evidence for acute infarction. EXTRAAXIAL SPACES: Age-related involutional change. No fluid collections. No masses. ORBITS AND GLOBE: No intra- or extraconal masses. Normal contour of globe without masses. CALVARIUM: No fracture. PARANASAL SINUSES: No fluid or mucosal thickening. SOFT TISSUES: No mass or hematoma. OTHER: No other significant finding. IMPRESSION: CHRONIC CHANGES OF ATROPHY AND MICROVASCULAR ISCHEMIA. NO ACUTE PROCESS. EVIDENCE OF ACUTE STROKE: NO. TECHNICAL DOCUMENTATION: JOB ID: [id number] Quality ID # [id number]: Final reports with documentation of one or more dose reduction techniques (e.g., Au tomated exposure control, adjustment of the mA and/or kV according to patient size, use of iterative reconstruction technique) 2010 [employer]- All Rights Reserved Reading location - IP/workstation name: [email or web address]
--- NOTE | 2019-06-27 14:27 | RADIOLOGY REPORT (SQ) ---
EXAM DESCRIPTION: CT CERVICAL SPINE WITHOUT COMPLETED DATE/TIME: 06/27/2019 2:05 pm REASON FOR STUDY: trauma COMPARISON: None. TECHNIQUE: Axial images acquired through the cervical spine without intravenous contrast. Images re viewed with lung, soft tissue and bone windows. Reconstructed coronal and sagittal MPR images review ed. Images stored on PACS. All CT scanners at this facility use dose modulation, iterative reconstruction, and/or weight based d osing when appropriate to reduce radiation dose to as low as reasonably achievable (ALARA). [facility]: Dose Right [facility]: CareDose [facility]: Dose Right [facility]: Teradose 4D [facility]: [employer] RADIATION DOSE: CT Rad equipment meets quality standard of care and radiation dose reduction techniq ues were employed. CTDIvol: 21.5 mGy. DLP: 406 mGy-cm. mGy. LIMITATIONS: None. FINDINGS: ALIGNMENT: Anatomic. MINERALIZATION: Normal. VERTEBRAL BODIES: No fractures or dislocation. DISCS: Multilevel disc space narrowing with osteophytes. FACETS, LATERAL MASSES, POSTERIOR ELEMENTS: Facet arthropathy. No fractures. No dislocation. No ac ed findings. HARDWARE: None in the spine. VISUALIZED RIBS: No fractures. LUNG APICES AND SOFT TISSUES: No significant or acute findings. OTHER: No other significant finding. IMPRESSION: CHRONIC DEGENERATIVE CHANGES. NO ACUTE FINDINGS. TECHNICAL DOCUMENTATION: JOB ID: [id number] Quality ID # [id number]: Final reports with documentation of one or more dose reduction techniques (e.g., Au tomated exposure control, adjustment of the mA and/or kV according to patient size, use of iterative reconstruction technique) 2010 [employer]- All Rights Reserved Reading location - IP/workstation name: [email or web address]
[2019-06-27 14:29] LABS: VENOUS BLOOD BASE EXCESS -0.2 mmol/L; VENOUS BLOOD HCO3 24.7 mmol/L (20-32); VENOUS BLOOD PCO2 41.6 mmHg (35-63); VENOUS BLOOD PH 7.39 (7.30-7.42)
[2019-06-27 14:43] LABS: ABSOLUTE LYMPHOCYTES# (MANUAL) 0.7 10^3/uL (0.5-4.7); ABSOLUTE MONOCYTES # (MANUAL) 0.3 10^3/uL (0.1-1.4); BASOPHILS % (MANUAL) 0 % (0-2); EOSINOPHILS % (MANUAL) 0 % (0-6); LYMPHOCYTES % (MANUAL) 5 % (13-45); MONOCYTES % (MANUAL) 2 % (3-13); SEGMENTED NEUTROPHILS % (MAN) 93 % (42-78); TOTAL CELLS COUNTED 100
[2019-06-27 14:44] LABS: ANISOCYTOSIS SLIGHT; PLATELET COMMENT ADEQUATE
[2019-06-27] MEDS ORDERED: CEFTRIAXONE INJ 1000 MG VIAL IV ONE (14:48)
[2019-06-27 15:03] LABS: APPEARANCE,URINE CLEAR; BILIRUBIN,URINE NEGATIVE (NEGATIVE); COLOR,URINE YELLOW; GLUCOSE, URINE NEGATIVE (NEGATIVE); KETONES,URINE NEGATIVE (NEGATIVE); LEUKOCYTE ESTERASE,URINE NEGATIVE (NEGATIVE); NITRITE,URINE NEGATIVE (NEGATIVE); PROTEIN,URINE NEGATIVE (NEGATIVE); URINE SPECIFIC GRAVITY 1.013; UROBILINOGEN,URINE NEGATIVE mg/dL (<2.0)
[2019-06-27] MEDS: NORMAL SALINE IV PRN ×2 (16:06→21:06)
--- NOTE | 2019-06-27 16:49 | PDOC H&P ---
History of Present Illness Admission Date/PCP: 06/27/19 15:36 TERRANCE MARINELLI MD History of Present Illness: MARILU RIZO is a 78 year old female who is a poor historian and apparent ly lives alone comes in today because she was found down at home by her son. He said he last talked to her yesterday evening and she had been doing fine and was not really complaining of anything. So this morning he tried to contact her and she did not answer the phone. He tried again when he did not get an answer he went over to her house where he found her on the floor in the bedroom. She says she does not remember going to bed last night. She said she does not remember how she got into the floor. She denies any chest pain or palpitations. She denies any history of any syncopal episodes, but again, this patient is not a very good historian. Her creatinine was elevated as well as her CK, which was mildly elevated. Her son thinks that she has some degree of chronic kidney disease but does not know the specifics. She does not know the medications that she is on, at least not right now, but says she uses [facility]. She is being admitted for some IV fluids and further evaluation. Past Medical History Cardiac Medical History: Reports: Hyperlipidema, Hypertension, Heart Murmur Denies: Atrial Fibrillation, Congestive Heart Failure, Coronary Artery Disease, Myocardial Infarction, Peripheral Vascular Disease, Pulmonary Embolism Pulmonary Medical History: Reports: Bronchitis, Sleep Apnea - uses CPAP Denies: Asthma, Pneumonia, Respiratory Failure, Tuberculosis Neurological Medical History: Denies: Seizures Endocrine Medical History: Denies: Hyperthyroidism, Hypothyroidism Renal/ Medical History: Denies: End Stage Renal Disease Malignancy Medical History: Denies: Leukemia, Lung Cancer GI Medical History: Reports: Gastroesophageal Reflux Disease Denies: Crohn's Disease, Hepatitis, Hiatal Hernia Musculoskeltal Medical History: Reports: Arthritis Denies: Fibromyalgia Hematology: Denies: Anemia, Hemophilia, Sickle Cell Disease Infectious Medical History: Denies: HIV Past Surgical History Past Surgical History: Reports: Cholecystectomy, Orthopedic Surgery - right shoulder Denies: Amputation, Appendectomy, Section, Colostomy, Coronary Artery Bypass Graft, Gastric Bypass Surgery, Herniorrhaphy, Hysterectomy, Mastectomy, Pacemaker, Tonsillectomy, Tubal Ligation Social History Smoking Status: Never Smoker Hx Recreational Drug Use: No Hx Prescription Drug Abuse: No Family History Family History: Reviewed & Not Pertinent Parental Family History Reviewed: Yes - Unreliable historian Children Family History Reviewed: Yes - Hypertension, the son was there to tell me Sibling(s) Family History Reviewed.: Yes - Unreliable historian Medication/Allergy Home Medications: Allopurinol [Zyloprim 100 mg Tablet] 200 mg PO DAILY 03/26/18 Carvedilol 25 mg PO Q12 03/26/18 Duloxetine HCl 60 mg PO DAILY 03/26/18 Folic Acid 2 mg PO DAILY 03/26/18 Infliximab [Remicade Inj 100 mg Vial] 100 mg IV .[id number] PRN 03/26/18 Methotrexate Sodium [Methotrexate] 10 mg PO WE@1000 PRN 03/26/18 Pantoprazole Sodium 40 mg PO BID 03/26/18 Potassium Chloride 20 meq PO DAILY 03/26/18 Simvastatin 20 mg PO QHS 03/26/18 Telmisartan 80 mg PO DAILY 03/26/18 Ergocalciferol (Vitamin D2) [Drisdol 50,000 unit (1.25MG) Capsule] 50,000 unit PO WE@1000 04/06/18 Gabapentin [Neurontin 300 mg Capsule] 1 - 2 cap PO TID 04/06/18 Betamethasone Dipropionate [Diprosone Cream] 1 applic TP BID 06/27/19 Oxycodone HCl/Acetaminophen [Percocet 10-325 Mg Tablet] 1 each PO Q4HP PRN 06/27/19 Triamcinolone Acetonide [Aristocort 0.1% Ointment 15 gm] 1 applic TP BID 06/27/19 Allergies/Adverse Reactions: hydroxychloroquine sulfate [From Plaquenil] Allergy (Mild, Verified 03/11/18 11 :34) Generalized Itching Sulfa (Sulfonamide Antibiotics) Allergy (Mild, Verified 03/11/18 11:34) Unknown reaction TAPE Allergy (Mild, Uncoded 04/08/11 11:03) Blisters Review of Systems ROS unobtainable: Other - Unreliable historian Physical Exam Vital Signs: Temp Pulse Resp BP Pulse Ox 22 H 107/85 95 06/27/19 15:00 06/27/19 14:07 06/27/19 15:00 Intake & Output 06/26/19 06/27/19 06/28/19 06:59 06:59 06:59 Intake Total 1999 Balance 2000 Weight 113.4 kg General appearance: PRESENT: no acute distress, cooperative, disheveled, morbidly obese Head exam: PRESENT: atraumatic, normocephalic Eye exam: PRESENT: EOMI, PERRLA. ABSENT: conjunctival injection, nystagmus, scleral icterus Ear exam: PRESENT: normal external ear exam Mouth exam: PRESENT: dry mucosa, neck supple Teeth exam: PRESENT: poor dentation Throat exam: ABSENT: post pharyngeal erythema Neck exam: PRESENT: full ROM. ABSENT: carotid bruit, JVD, lymphadenopathy, meningismus, tenderness, thyromegaly Respiratory exam: PRESENT: clear to auscultation chrissy, symmetrical, unlabored. ABSENT: accessory muscle use, chest wall tenderness, crackles, prolonged expiratory phas, rhonchi, tachypnea, wheezes Cardiovascular exam: PRESENT: RRR, +S1, +S2, systolic murmur Pulses: ABSENT: normal carotid pulses Vascular exam: ABSENT: normal capillary refill GI/Abdominal exam: PRESENT: normal bowel sounds, soft. ABSENT: distended, guarding, rebound, tenderness Extremities exam: ABSENT: clubbing, pedal edema Musculoskeletal exam: PRESENT: normal inspection. ABSENT: deformity Neurological exam: PRESENT: alert, awake, oriented to person, oriented to place, CN II-XII grossly intact. ABSENT: motor sensory deficit Psychiatric exam: PRESENT: flat affect Skin exam: PRESENT: dry, warm, other - She was covered with skin tags of various shapes and sizes, and had numerous actinic keratoses on her face and upper extremities. She also had numerous varicose veins in her lower extremities Results Laboratory Results: 06/27/19 12:45 06/27/19 12:45 06/27/19 06/27/19 06/27/19 12:45 12:45 14:07 WBC 14.1 H RBC 2.98 L Hgb 10.9 L Hct 32.6 L MCV 109 H MCH 36.4 H MCHC 33.4 RDW 14.7 H Plt Count 192 Seg Neutrophils % Not Reportable VBG pH VBG pCO2 VBG HCO3 VBG Base Excess Sodium 140.1 Potassium 4.8 Chloride 99 Carbon Dioxide 27 Anion Gap 14 BUN 67 H Creatinine 3.42 H Est GFR ( Amer) 16 L Glucose 147 H Lactic Acid 1.3 Calcium 9.8 Total Bilirubin 1.1 AST 73 H Alkaline Phosphatase 117 Total Protein 7.4 Albumin 4.5 Urine Color Urine Appearance Urine pH Ur Specific [place] Urine Protein Urine Glucose (UA) Urine Ketones Urine Blood Urine Nitrite Ur Leukocyte Esterase Urine WBC (Auto) 06/27/19 06/27/19 14:07 14:43 WBC RBC Hgb Hct MCV MCH MCHC RDW Plt Count Seg Neutrophils % VBG pH 7.39 VBG pCO2 41.6 VBG HCO3 24.7 VBG Base Excess -0.2 Sodium Potassium Chloride Carbon Dioxide Anion Gap BUN Creatinine Est GFR ( Amer) Glucose Lactic Acid Calcium Total Bilirubin AST Alkaline Phosphatase Total Protein Albumin Urine Color YELLOW Urine Appearance CLEAR Urine pH 5.0 Ur Specific [place] 1.013 Urine Protein NEGATIVE Urine Glucose (UA) NEGATIVE Urine Ketones NEGATIVE Urine Blood LARGE H Urine Nitrite NEGATIVE Ur Leukocyte Esterase NEGATIVE Urine WBC (Auto) 1 06/27/19 06/27/19 12:45 12:45 Creatine Kinase 2008 H CK-MB (CK-2) 21.60 H Troponin I < 0.012 Impressions: Chest X-Ray 06/27/19 13:25 IMPRESSION: LOW LUNG VOLUMES. NO SIGNIFICANT RADIOGRAPHIC FINDING IN THE CHEST. Cervical Spine CT 06/27/19 13:38 IMPRESSION: CHRONIC DEGENERATIVE CHANGES. NO ACUTE FINDINGS. Head CT 06/27/19 13:38 IMPRESSION: CHRONIC CHANGES OF ATROPHY AND MICROVASCULAR ISCHEMIA. NO ACUTE PROCESS. EVIDENCE OF ACUTE STROKE: NO. Assessment and Plan - Diagnosis (1) Renal failure Qualifiers: Renal failure chronicity: acute on chronic Acute renal failure type: unspecified Chronic kidney disease stage: unspecified stage Qualified Code(s): N17.9 - Acute kidney failure, unspecified; N18.9 - Chronic kidney disease, unspecified Is this a current diagnosis for this admission?: Yes Plan: Her son says she has some degree of chronic kidney disease but he does not know the severity. I do not know what her baseline creatinine is. We will then give her some fluids and monitor urine output and her electrolytes however her kidneys respond. (2) Heart murmur Is this a current diagnosis for this admission?: Yes Plan: She says she has a history of rheumatoid arthritis so this may be associated and may have been there for some time. We will get an echocardiogram to better characterize it. (3) Rhabdomyolysis Qualifiers: Rhabdomyolysis type: non-traumatic Qualified Code(s): M62.82 - Rhabdomyolysis Is this a current diagnosis for this admission?: Yes Plan: Very mild, should respond to IV fluids. We will also get a physical therapy evaluation because she could not get herself out of the floor. - Time Time Spent with patient: 35 or more minutes - Inpatient Certification Based on my medical assessment, after consideration of the patient's comorbidities, presenting symptoms, or acuity I expect that the services needed warrant INPATIENT care.: Yes I certify that my determination is in accordance with my understanding of Medicare's requirements for reasonable and necessary INPATIENT services [42 CFR 412.3e].: Yes Medical Necessity: Significant Comorbidiites Make Outpatient Treatment Too Risky, Need Close Monitoring Due to Risk of Patient Decompensation, Need For IV Fluids, Need For Continuous Telemetry Monitoring, Risk of Complication if Not Cared For in Hospital
[2019-06-27] MEDS: NORMAL SALINE 1000 ML 1,000 ML IV PRN (21:07)
[2019-06-27] MEDS: HEPARIN SOD (PORCINE) 5,000 UNIT/ML 1 ML VIAL SUBCUT SCH (21:08)
--- NOTE | 2019-06-28 00:57 | EKG REPORT ---
SEVERITY:- NORMAL ECG - SINUS RHYTHM : Confirmed by: Renzo Ken 28-Jun-2019 00:55:37
[2019-06-28 03:59] LABS: HEMATOCRIT 26.1 % (36.0-47.0); MEAN CORPUSCULAR HEMOGLOBIN 37.3 pg (27.0-33.4); MEAN CORPUSCULAR HGB CONC 33.9 g/dL (32.0-36.0); MEAN CORPUSCULAR VOLUME 110 fl (80-97); PLATELET COUNT 128 10^3/uL (150-450); RED BLOOD COUNT 2.37 10^6/uL (3.72-5.28); RED CELL DISTRIBUTION WIDTH 14.8 % (11.5-14.0); WHITE BLOOD COUNT 7.6 10^3/uL (4.0-10.5)
[2019-06-28 04:05] LABS: HEMOGLOBIN 8.8 g/dL (12.0-15.5)
[2019-06-28 04:28] LABS: ANION GAP 7 (5-19); BLOOD UREA NITROGEN 49 mg/dL (7-20); CALCIUM 8.5 mg/dL (8.4-10.2); CARBON DIOXIDE 24 mmol/L (22-30); CHLORIDE 110 mmol/L (98-107); GLUCOSE 123 mg/dL (75-110); POTASSIUM 3.9 mmol/L (3.6-5.0)
[2019-06-28 05:45] LABS: ARTERIAL BLOOD BASE EXCESS -2.3 mmol/L; ARTERIAL BLOOD FIO2 28%; ARTERIAL BLOOD H2CO3 1.01 mmol/L (1.05-1.35); ARTERIAL BLOOD HCO3 21.7 mmol/L (20-24); ARTERIAL BLOOD O2 SATURATION 97.2 % (94-98); ARTERIAL BLOOD PCO2 33.7 mmHg (35-45); ARTERIAL BLOOD PH 7.43 (7.35-7.45); ARTERIAL BLOOD PO2 90.6 mmHg (80-100); ARTERIAL BLOOD TOTAL CO2 22.7 mmol/L (21-25)
[2019-06-28] MEDS: HEPARIN SOD (PORCINE) 5,000 UNIT/ML 1 ML VIAL SUBCUT SCH ×3 (05:46→22:11)
[2019-06-28] MEDS: NORMAL SALINE 1000 ML 1,000 ML IV PRN (15:12)
--- NOTE | 2019-06-28 17:09 | PDOC PROGRESS REPORT ---
Subjective Progress Note for:: 06/28/19 Subjective:: No adverse events overnight. No new complaints. Blood pressure has improved some. She is complaining of a groin yeast infection. Urine output is been good. Reason For Visit: ACUTE KIDNEY INJURY,DEHYDRATION,RHABDOMYOLYSIS Physical Exam Vital Signs: Temp Pulse Resp BP Pulse Ox 98.6 F 83 19 131/56 H 96 06/28/19 07:00 06/28/19 14:00 06/28/19 07:00 06/28/19 07:00 06/28/19 07:00 Intake & Output 06/27/19 06/28/19 06/29/19 06:59 06:59 06:59 Intake Total 4180 2400 Balance 4180 2400 Weight 92.5 kg General appearance: PRESENT: no acute distress, cooperative, disheveled, morbidly obese Respiratory exam: PRESENT: clear to auscultation chrissy, symmetrical, unlabored. ABSENT: accessory muscle use, chest wall tenderness, crackles, prolonged expiratory phas, rhonchi, tachypnea, wheezes Cardiovascular exam: PRESENT: RRR, +S1, +S2, systolic murmur Pulses: PRESENT: normal carotid pulses Vascular exam: PRESENT: normal capillary refill GI/Abdominal exam: PRESENT: normal bowel sounds, soft. ABSENT: distended, guarding, rebound, tenderness Extremities exam: ABSENT: clubbing, pedal edema Musculoskeletal exam: PRESENT: normal inspection. ABSENT: deformity Neurological exam: PRESENT: alert, awake, oriented to person. ABSENT: oriented to place - She thought she was in [place], oriented to situation Psychiatric exam: PRESENT: flat affect Skin exam: PRESENT: dry, warm Results Laboratory Results: 06/28/19 03:32 06/28/19 03:32 06/28/19 06/28/19 06/28/19 03:32 03:32 05:20 WBC 7.6 RBC 2.37 L Hgb 8.8 L D Hct 26.1 L MCV 110 H MCH 37.3 H MCHC 33.9 RDW 14.8 H Plt Count 128 L Carbonic Acid 1.01 L HCO3/H2CO3 Ratio 21:1 ABG pH 7.43 ABG pCO2 33.7 L ABG pO2 90.6 ABG HCO3 21.7 ABG O2 Saturation 97.2 ABG Base Excess -2.3 FiO2 28% Sodium 141.3 Potassium 3.9 Chloride 110 H Carbon Dioxide 24 Anion Gap 7 BUN 49 H Creatinine 2.31 H Est GFR ( Amer) 25 L Glucose 123 H Calcium 8.5 06/27/19 06/27/19 12:45 12:45 Creatine Kinase 2008 H CK-MB (CK-2) 21.60 H Troponin I < 0.012 Impressions: Chest X-Ray 06/27/19 13:25 IMPRESSION: LOW LUNG VOLUMES. NO SIGNIFICANT RADIOGRAPHIC FINDING IN THE CHEST. Cervical Spine CT 06/27/19 13:38 IMPRESSION: CHRONIC DEGENERATIVE CHANGES. NO ACUTE FINDINGS. Head CT 06/27/19 13:38 IMPRESSION: CHRONIC CHANGES OF ATROPHY AND MICROVASCULAR ISCHEMIA. NO ACUTE PROCESS. EVIDENCE OF ACUTE STROKE: NO. Assessment and Plan - Diagnosis (1) Renal failure Qualifiers: Renal failure chronicity: acute on chronic Acute renal failure type: unspecified Chronic kidney disease stage: unspecified stage Qualified Code(s): N17.9 - Acute kidney failure, unspecified; N18.9 - Chronic kidney disease, unspecified Is this a current diagnosis for this admission?: Yes Plan: Improving with IV fluids we will continue IV fluids for now continue to monitor. (2) Heart murmur Is this a current diagnosis for this admission?: Yes Plan: Official echocardiogram report is pending (3) Rhabdomyolysis Qualifiers: Rhabdomyolysis type: non-traumatic Qualified Code(s): M62.82 - Rhabdomyolysis Is this a current diagnosis for this admission?: Yes Plan: Very mild to begin with, CK was only around 2000. No muscle aches. Improving with IV fluids. (4) Candidiasis, intertrigo Is this a current diagnosis for this admission?: Yes Plan: I have ordered some nystatin cream - Time Time Spent with patient: 15-24 minutes
[2019-06-28] MEDS: PANTOPRAZOLE SODIUM 40 MG TABLET.DR PO SCH (17:45)
[2019-06-28 19:43] LABS: C DIFFICILE GDH NEGATIVE (NEGATIVE)
[2019-06-28] MEDS ORDERED: (PENDING PHARMACY ID) (Simvastatin [Simvastatin] 20 MG) PO SCH (22:00)
[2019-06-28] MEDS: SIMVASTATIN 10 MG TABLET PO SCH (22:11)
[2019-06-29] MEDS: NORMAL SALINE 1000 ML 1,000 ML IV PRN ×3 (01:08→22:39)
[2019-06-29] MEDS: HEPARIN SOD (PORCINE) 5,000 UNIT/ML 1 ML VIAL SUBCUT SCH ×3 (05:57→22:34)
[2019-06-29 06:16] LABS: HEMATOCRIT 24.3 % (36.0-47.0); HEMOGLOBIN 8.2 g/dL (12.0-15.5); MEAN CORPUSCULAR HGB CONC 33.8 g/dL (32.0-36.0); MEAN CORPUSCULAR VOLUME 109 fl (80-97); PLATELET COUNT 106 10^3/uL (150-450); RED BLOOD COUNT 2.22 10^6/uL (3.72-5.28); RED CELL DISTRIBUTION WIDTH 14.6 % (11.5-14.0); WHITE BLOOD COUNT 3.9 10^3/uL (4.0-10.5)
[2019-06-29 06:37] LABS: ANION GAP 8 (5-19); BLOOD UREA NITROGEN 24 mg/dL (7-20); CALCIUM 8.3 mg/dL (8.4-10.2); CARBON DIOXIDE 22 mmol/L (22-30); CHLORIDE 109 mmol/L (98-107); GLUCOSE 106 mg/dL (75-110); POTASSIUM 3.4 mmol/L (3.6-5.0)
[2019-06-29] MEDS: NYSTATIN CREAM 15 GM TP SCH ×3 (07:44→17:12)
[2019-06-29] MEDS: FOLIC ACID 1 MG TABLET PO SCH (09:38)
[2019-06-29] MEDS: DULOXETINE HCL 30 MG CAPSULE.DR PO SCH (09:38)
[2019-06-29] MEDS: ALLOPURINOL 100 MG TABLET PO SCH (09:39)
[2019-06-29] MEDS: PANTOPRAZOLE SODIUM 40 MG TABLET.DR PO SCH ×2 (09:40→17:12)
[2019-06-29] MEDS ORDERED: (PENDING PHARMACY ID) (Duloxetine Hcl [Duloxetine Hcl] 60 MG) PO SCH (10:00)
[2019-06-29] MEDS ORDERED: POTASSIUM CHLORIDE 20 MEQ PACKET PO SCH (10:15)
--- NOTE | 2019-06-29 11:48 | PDOC PROGRESS REPORT ---
Subjective Progress Note for:: 06/29/19 Subjective:: 06/29/2019 she was admitted for being down for approximately 24 hours, possible rhabdomyolysis. Patient lives alone following electrolytes with possible discharge tomorrow consulting discharge planning today as well. Reason For Visit: ACUTE KIDNEY INJURY,DEHYDRATION,RHABDOMYOLYSIS Physical Exam Vital Signs: Temp Pulse Resp BP Pulse Ox 99.8 F 80 17 170/73 H 100 06/29/19 07:41 06/29/19 07:41 06/29/19 07:41 06/29/19 07:41 06/29/19 07:41 Intake & Output 06/28/19 06/29/19 06/30/19 06:59 06:59 06:59 Intake Total 4180 3893 1000 Balance 4180 3893 1000 Weight 92.5 kg 91.5 kg General appearance: PRESENT: no acute distress, other - Sitting up in bed talking, patient however has not been out of bed to admission days ago. Respiratory exam: PRESENT: clear to auscultation chrissy. ABSENT: rales, rhonchi, wheezes Cardiovascular exam: PRESENT: RRR. ABSENT: diastolic murmur, rubs, systolic murmur Neurological exam: PRESENT: alert, awake, oriented to person, oriented to place, oriented to time, oriented to situation, CN II-XII grossly intact. ABSENT: motor sensory deficit Psychiatric exam: PRESENT: appropriate affect, normal mood. ABSENT: homicidal ideation, suicidal ideation Results Laboratory Results: 06/29/19 04:35 06/29/19 04:35 06/29/19 06/29/19 04:35 04:35 WBC 3.9 L RBC 2.22 L Hgb 8.2 L Hct 24.3 L MCV 109 H MCH 37.0 H MCHC 33.8 RDW 14.6 H Plt Count 106 L Sodium 138.6 Potassium 3.4 L Chloride 109 H Carbon Dioxide 22 Anion Gap 8 BUN 24 H Creatinine 1.39 H Est GFR ( Amer) 45 L Glucose 106 Calcium 8.3 L 06/27/19 14:43 Catheterized Urine Urine Culture - Final NO GROWTH 2 DAYS 06/27/19 06/27/19 06/29/19 12:45 12:45 04:35 Creatine Kinase 2008 H 1482 H CK-MB (CK-2) 21.60 H Troponin I < 0.012 Impressions: Chest X-Ray 06/27/19 13:25 IMPRESSION: LOW LUNG VOLUMES. NO SIGNIFICANT RADIOGRAPHIC FINDING IN THE CHEST. Cervical Spine CT 06/27/19 13:38 IMPRESSION: CHRONIC DEGENERATIVE CHANGES. NO ACUTE FINDINGS. Head CT 06/27/19 13:38 IMPRESSION: CHRONIC CHANGES OF ATROPHY AND MICROVASCULAR ISCHEMIA. NO ACUTE PROCESS. EVIDENCE OF ACUTE STROKE: NO. Assessment and Plan - Diagnosis (1) Hypertension Is this a current diagnosis for this admission?: Yes Plan: 06/29/2019 she was taking Coreg 25 mg every 12 hours prior to admission start her back on this. Blood pressures up a little bit today about 170/73 (2) Altered mental status Qualifiers: Altered mental status type: disorientation Qualified Code(s): R41.0 - Disorientation, unspecified Is this a current diagnosis for this admission?: Yes Plan: 06/29/2019 no signs of altered mental status. Patient is awake alert x3. Patient is able to carry on a normal conversation with me in the room as well as family (3) Renal failure Qualifiers: Renal failure chronicity: acute on chronic Acute renal failure type: unspecified Chronic kidney disease stage: unspecified stage Qualified Code(s): N17.9 - Acute kidney failure, unspecified; N18.9 - Chronic kidney disease, unspecified Is this a current diagnosis for this admission?: Yes Plan: Improving with IV fluids we will continue IV fluids for now continue to monitor. 06/29/2019 patient's electrolytes are stable 1 to Bun today 24 down from 49. Cr today 1.39 down from 2.31 CK on admission 2008 down today to 1482 (4) Rhabdomyolysis Qualifiers: Rhabdomyolysis type: non-traumatic Qualified Code(s): M62.82 - Rhabdomyolysis Is this a current diagnosis for this admission?: Yes Plan: Very mild to begin with, CK was only around 2000. No muscle aches. Improving with IV fluids. 06/29/19 CK today 1482 - Time Time Spent with patient: 35 or more minutes
[2019-06-29] MEDS: CARVEDILOL 12.5 MG TABLET PO SCH ×2 (12:14→22:32)
[2019-06-29] MEDS: POTASSIUM CHLORIDE 20 MEQ PACKET PO SCH (22:32)
[2019-06-29] MEDS: SIMVASTATIN 10 MG TABLET PO SCH (22:33)
[2019-06-30] MEDS: HEPARIN SOD (PORCINE) 5,000 UNIT/ML 1 ML VIAL SUBCUT SCH ×3 (05:55→21:12)
[2019-06-30 07:44] LABS: HEMATOCRIT 24.1 % (36.0-47.0); HEMOGLOBIN 8.1 g/dL (12.0-15.5); MEAN CORPUSCULAR HEMOGLOBIN 36.5 pg (27.0-33.4); MEAN CORPUSCULAR HGB CONC 33.7 g/dL (32.0-36.0); MEAN CORPUSCULAR VOLUME 108 fl (80-97); RED BLOOD COUNT 2.23 10^6/uL (3.72-5.28); RED CELL DISTRIBUTION WIDTH 14.5 % (11.5-14.0); WHITE BLOOD COUNT 4.3 10^3/uL (4.0-10.5)
--- NOTE | 2019-06-30 07:50 | XCELERA REPORT ---
[address] [address] Transthoracic Echocardiogram Report Name: MARILU RIZO Age: 78 yrs Gender: Female : 1940 Patient Status: Inpatient Patient Location: [facility]^A Study Date: 06/28/2019 10:26 AM Height: 61 in Weight: 250 lb BSA: 2.1 m2 Procedure: A two-dimensional transthoracic echocardiogram with color flow and Doppler was performed. Study Quality: Fair. Reason For Study: heart murmur History: heart murmur. Ordering Physician: BETTY MIN Performed By: Ashley Coello Interpretation Summary The left ventricle is normal in size. There is normal left ventricular wall thickness. LV EF is 65% Left ventricular systolic function is normal. Doppler measurements suggest impaired left ventricular relaxation, which is associated with grade I/IV or mild diastolic dysfunction The left ventricular wall motion is normal. There is no thrombus. Probably no ASD or VSD , or PFO seen. The right ventricle is normal in size and function. The right atrium is normal. The left atrial size is normal. There is no evidence of mitral valve prolapse. There is no vegetation seen on the mitral valve. There is no mitral valve stenosis. There is a trace amount of mitral regurgitation There is no aortic valvular vegetation. There is mild aortic stenosis There is a peak gradient of 38.4 mm of Hg. There is no LVOT obstruction. No aortic regurgitation is present. There is no tricuspid stenosis. There is a trace amount of tricuspid regurgitation There is mild pulmonary hypertension by echo RVSP is 30 to 35 mm of Hg , with RA mean of 5 to 10. There is no pulmonic valvular stenosis. There is no pulmonic valvular regurgitation. The aortic root is normal size. The inferior vena cava appeared normal and decreased > 50% with respiration (RAP 5-10 mmHg) There is no pericardial effusion. MMode/2D Measurements & Calculations RVDd: 2.9 cm LVIDd: 4.3 cm FS: 40.1 % Ao root diam: 2.6 cm IVSd: 0.99 cm LVIDs: 2.6 cm EDV(Teich): 83.8 ml Ao root area: 5.3 cm2 LVPWd: 1.0 cm ESV(Teich): 24.3 ml EF(Teich): 71.1 % Doppler Measurements & Calculations MV E max jacki: MV dec slope: Ao V2 max: LV V1 max P.2 cm/sec 592.3 cm/sec2 266.3 cm/sec 8.2 mmHg MV A max jacki: MV dec time: Ao max PG: LV V1 max: 145.2 cm/sec 0.22 sec 28.4 mmHg 143.1 cm/sec MV E/A: 0.88 PA V2 max: PI end-d jacki: TR max jacki: 118.1 cm/sec 135.6 cm/sec 251.6 cm/sec PA max P.6 mmHg TR max P.3 mmHg Left Ventricle The left ventricle is normal in size. There is normal left ventricular wall thickness. LV EF is 65%. Left ventricular systolic function is normal. Doppler measurements suggest impaired left ventricular relaxation, which is associated with grade I/IV or mild diastolic dysfunction. The left ventricular wall motion is normal. There is no thrombus. Probably no ASD or VSD , or PFO seen. Right Ventricle The right ventricle is normal in size and function. Atria The right atrium is normal. The left atrial size is normal. Mitral Valve There is no evidence of mitral valve prolapse. There is no vegetation seen on the mitral valve. There is no mitral valve stenosis. There is a trace amount of mitral regurgitation. Aortic Valve There is no aortic valvular vegetation. There is mild aortic stenosis. There is a peak gradient of 38.4 mm of Hg. There is no LVOT obstruction. No aortic regurgitation is present. Tricuspid Valve There is no tricuspid stenosis. There is a trace amount of tricuspid regurgitation. There is mild pulmonary hypertension by echo. RVSP is 30 to 35 mm of Hg , with RA mean of 5 to 10. Pulmonic Valve There is no pulmonic valvular stenosis. There is no pulmonic valvular regurgitation. Great Vessels The aortic root is normal size. The inferior vena cava appeared normal and decreased > 50% with respiration (RAP 5-10 mmHg). Effusions There is no pericardial effusion. : BETTY MIN Lakshmi
[2019-06-30] MEDS ORDERED: INFLUENZA QUAD (6MOS+) 2019-20 VAC 0.5 ML SYR IM ONE (08:00)
[2019-06-30 08:04] LABS: ANION GAP 8 (5-19); BLOOD UREA NITROGEN 14 mg/dL (7-20); CALCIUM 8.5 mg/dL (8.4-10.2); CARBON DIOXIDE 21 mmol/L (22-30); CHLORIDE 108 mmol/L (98-107); GLUCOSE 109 mg/dL (75-110); POTASSIUM 3.6 mmol/L (3.6-5.0)
[2019-06-30 08:28] LABS: PLATELET COUNT 95 10^3/uL (150-450)
[2019-06-30] MEDS: PANTOPRAZOLE SODIUM 40 MG TABLET.DR PO SCH ×2 (10:34→17:15)
[2019-06-30] MEDS: CARVEDILOL 12.5 MG TABLET PO SCH ×2 (10:34→21:12)
[2019-06-30] MEDS: DULOXETINE HCL 30 MG CAPSULE.DR PO SCH (10:35)
[2019-06-30] MEDS: POTASSIUM CHLORIDE 20 MEQ PACKET PO SCH ×2 (10:35→21:12)
[2019-06-30] MEDS: NORMAL SALINE 1000 ML 1,000 ML IV PRN (10:38)
[2019-06-30] MEDS: NYSTATIN CREAM 15 GM TP SCH ×2 (10:43→17:16)
[2019-06-30] MEDS: FOLIC ACID 1 MG TABLET PO SCH (10:44)
[2019-06-30] MEDS: ALLOPURINOL 100 MG TABLET PO SCH (10:44)
--- NOTE | 2019-06-30 10:59 | PDOC PROGRESS REPORT ---
Subjective Progress Note for:: 06/30/19 Subjective:: 06/29/2019 she was admitted for being down for approximately 24 hours, possible rhabdomyolysis. Patient lives alone following electrolytes with possible discharge tomorrow consulting discharge planning today as well. 06-30-19 patient appears to be alert and oriented with improvement every day. Spoke to the son over the phone today and he would like patient placed in some sort of rehab or intermediate facility time of discharge. He states that he is unable to care for her,patient seems reluctant but does agree Reason For Visit: ACUTE KIDNEY INJURY,DEHYDRATION,RHABDOMYOLYSIS Physical Exam Vital Signs: Temp Pulse Resp BP Pulse Ox 98.6 F 62 18 169/68 H 100 06/30/19 04:48 06/30/19 07:00 06/30/19 04:48 06/30/19 04:48 06/30/19 04:48 Intake & Output 06/29/19 06/30/19 07/01/19 06:59 06:59 06:59 Intake Total 3893 2800 1000 Output Total 1 Balance 3893 2799 1000 Weight 91.5 kg 96.6 kg General appearance: PRESENT: mild distress, other - Wheezing Respiratory exam: PRESENT: decreased breath sounds, wheezes, other - The wheezing is more audible without the stethoscope. However this may be patient's baseline son did not seem concerned over the phone about the wheezing. Cardiovascular exam: PRESENT: RRR. ABSENT: diastolic murmur, rubs, systolic murmur Neurological exam: PRESENT: alert, awake, oriented to person, oriented to place, oriented to time, oriented to situation, CN II-XII grossly intact. ABSENT: motor sensory deficit Psychiatric exam: PRESENT: appropriate affect, normal mood. ABSENT: homicidal ideation, suicidal ideation Results Laboratory Results: 06/30/19 06:55 06/30/19 06:55 06/30/19 06/30/19 06:55 06:55 WBC 4.3 RBC 2.23 L Hgb 8.1 L Hct 24.1 L MCV 108 H MCH 36.5 H MCHC 33.7 RDW 14.5 H Plt Count 95 L Sodium 136.5 L Potassium 3.6 Chloride 108 H Carbon Dioxide 21 L Anion Gap 8 BUN 14 Creatinine 1.24 Est GFR ( Amer) 51 L Glucose 109 Calcium 8.5 06/27/19 14:43 Catheterized Urine Urine Culture - Final NO GROWTH 2 DAYS 06/27/19 06/27/19 06/29/19 12:45 12:45 04:35 Creatine Kinase 2008 H 1482 H CK-MB (CK-2) 21.60 H Troponin I < 0.012 Impressions: Chest X-Ray 06/27/19 13:25 IMPRESSION: LOW LUNG VOLUMES. NO SIGNIFICANT RADIOGRAPHIC FINDING IN THE CHEST. Cervical Spine CT 06/27/19 13:38 IMPRESSION: CHRONIC DEGENERATIVE CHANGES. NO ACUTE FINDINGS. Head CT 06/27/19 13:38 IMPRESSION: CHRONIC CHANGES OF ATROPHY AND MICROVASCULAR ISCHEMIA. NO ACUTE PROCESS. EVIDENCE OF ACUTE STROKE: NO. Assessment and Plan - Diagnosis (1) Hypertension Is this a current diagnosis for this admission?: Yes (2) Altered mental status Qualifiers: Altered mental status type: disorientation Qualified Code(s): R41.0 - Disorientation, unspecified Is this a current diagnosis for this admission?: Yes (3) Renal failure Qualifiers: Renal failure chronicity: acute on chronic Acute renal failure type: unspecified Chronic kidney disease stage: unspecified stage Qualified Code(s): N17.9 - Acute kidney failure, unspecified; N18.9 - Chronic kidney disease, unspecified Is this a current diagnosis for this admission?: Yes (4) Rhabdomyolysis Qualifiers: Rhabdomyolysis type: non-traumatic Qualified Code(s): M62.82 - Rhabdomyolysis Is this a current diagnosis for this admission?: Yes - Plan Summary Summary: I anticipate discharge tomorrow , however when I told this to the patient her son actually called on the phone he stated that he would like the patient to be placed in either assisted living or some sort of rehab facility time of discharge.. Evidently he is the primary caregiver and states he is unable to help her physical therapy and mobility Patient is wheezing when I talked to her and seems short of breath but auscultation by stethoscope does not sound tight. I went ahead and ordered DuoNeb treatments every 4 hours as needed. I have also contacted discharge planning to assess her needs. - Time Time Spent with patient: 25-34 minutes
[2019-06-30] MEDS: DIPHENOXYLATE HCL/ATROP SULF 2.5-0.025 MG TABLET PO PRN ×2 (11:20→21:12)
[2019-06-30] MEDS: IPRATROPIUM/ALBUTEROL 0.5-2.5 MG/3 ML AMPUL NEB PRN ×2 (12:39→15:51)
[2019-06-30] MEDS ORDERED: (PENDING PHARMACY ID) (Telmisartan [Telmisartan] 80 MG) PO SCH (13:45)
[2019-06-30] MEDS ORDERED: LOSARTAN POTASSIUM 50 MG TABLET PO SCH (14:00)
[2019-06-30] MEDS ORDERED: LOSARTAN POTASSIUM 50 MG TABLET PO ONE (14:30)
[2019-06-30 15:16] LABS: CREATINE KINASE MB 4.37 ng/mL (<4.55); TROPONIN I 0.037 ng/mL
[2019-06-30] MEDS: ACETAMINOPHEN 325 MG TABLET PO PRN (16:03)
[2019-06-30] MEDS: SIMVASTATIN 10 MG TABLET PO SCH (21:12)
[2019-07-01] MEDS: HEPARIN SOD (PORCINE) 5,000 UNIT/ML 1 ML VIAL SUBCUT SCH ×2 (05:47→13:48)
[2019-07-01] MEDS ORDERED: LOSARTAN POTASSIUM 50 MG TABLET PO SCH (10:00)
[2019-07-01] MEDS ORDERED: DIPHENOXYLATE HCL/ATROP SULF 2.5-0.025 MG TABLET PO PRN (10:10)
--- NOTE | 2019-07-01 10:18 | PDOC PROGRESS REPORT ---
Subjective Progress Note for:: 07/01/19 Subjective:: 06/29/2019 she was admitted for being down for approximately 24 hours, possible rhabdomyolysis. Patient lives alone following electrolytes with possible discharge tomorrow consulting discharge planning today as well. 06-30-19 patient appears to be alert and oriented with improvement every day. Spoke to the son over the phone today and he would like patient placed in some sort of rehab or halfway facility time of discharge. He states that he is unable to care for her,patient seems reluctant but does agree 07/01/2019 awaiting discharge planning concerning placement issues. Reason For Visit: ACUTE KIDNEY INJURY,DEHYDRATION,RHABDOMYOLYSIS Physical Exam Vital Signs: Temp Pulse Resp BP Pulse Ox 98.3 F 67 24 H 146/61 H 95 07/01/19 08:29 07/01/19 08:29 07/01/19 08:29 07/01/19 08:29 07/01/19 08:29 Intake & Output 06/30/19 07/01/19 07/02/19 06:59 06:59 06:59 Intake Total 2800 1958 Output Total 1 0 Balance 2799 1957 Weight 96.6 kg 98.4 kg General appearance: PRESENT: no acute distress, other - She is having multiple bouts of diarrhea C. difficile is negative Patient is up and ambulatory from the bed to the bedside commode with assistance Respiratory exam: PRESENT: clear to auscultation chrissy. ABSENT: rales, rhonchi, wheezes Cardiovascular exam: PRESENT: RRR. ABSENT: diastolic murmur, rubs, systolic murmur Neurological exam: PRESENT: alert, awake, oriented to person, oriented to place, oriented to time, oriented to situation, CN II-XII grossly intact, other - Patient's mental status is stable she appears to be oriented x3. ABSENT: motor sensory deficit Psychiatric exam: PRESENT: appropriate affect, normal mood. ABSENT: homicidal ideation, suicidal ideation Results Laboratory Results: 06/30/19 06:55 06/30/19 06:55 06/27/19 06/27/19 06/29/19 12:45 12:45 04:35 Creatine Kinase 2008 H 1482 H CK-MB (CK-2) 21.60 H Troponin I < 0.012 06/30/19 14:20 Creatine Kinase CK-MB (CK-2) 4.37 Troponin I 0.037 Impressions: Chest X-Ray 06/27/19 13:25 IMPRESSION: LOW LUNG VOLUMES. NO SIGNIFICANT RADIOGRAPHIC FINDING IN THE CHEST. Cervical Spine CT 06/27/19 13:38 IMPRESSION: CHRONIC DEGENERATIVE CHANGES. NO ACUTE FINDINGS. Head CT 06/27/19 13:38 IMPRESSION: CHRONIC CHANGES OF ATROPHY AND MICROVASCULAR ISCHEMIA. NO ACUTE PROCESS. EVIDENCE OF ACUTE STROKE: NO. Assessment and Plan - Diagnosis (1) Hypertension Is this a current diagnosis for this admission?: Yes (2) Altered mental status Qualifiers: Altered mental status type: disorientation Qualified Code(s): R41.0 - Disorientation, unspecified Is this a current diagnosis for this admission?: Yes (3) Renal failure Qualifiers: Renal failure chronicity: acute on chronic Acute renal failure type: unspe cified Chronic kidney disease stage: unspecified stage Qualified Code(s): N17.9 - Acute kidney failure, unspecified; N18.9 - Chronic kidney disease, unspecified Is this a current diagnosis for this admission?: Yes (4) Rhabdomyolysis Qualifiers: Rhabdomyolysis type: non-traumatic Qualified Code(s): M62.82 - Rhabdomyolysis Is this a current diagnosis for this admission?: Yes (5) Diarrhea Is this a current diagnosis for this admission?: Yes - Plan Summary Summary: I anticipate discharge tomorrow , however when I told this to the patient her son actually called on the phone he stated that he would like the patient to be placed in either assisted living or some sort of rehab facility time of discharge.. Evidently he is the primary caregiver and states he is unable to help her physical therapy and mobility Patient is wheezing when I talked to her and seems short of breath but auscultation by stethoscope does not sound tight. I went ahead and ordered DuoNeb treatments every 4 hours as needed. I have also contacted discharge planning to assess her needs. 07/01/2019 for discharge planning concerning placement issues Blood pressure 146/61 appears to be stable, pulse is anywhere from 56-75 stable, patient is afebrile 98 3 O2 sat 95% on 1 L Will DC oxygen and find out what her room air saturations are ambulate patient on room air as well - Time Time Spent with patient: 25-34 minutes
[2019-07-01] MEDS: ACETAMINOPHEN 325 MG TABLET PO PRN (10:26)
[2019-07-01] MEDS: CARVEDILOL 12.5 MG TABLET PO SCH (10:28)
[2019-07-01] MEDS: PANTOPRAZOLE SODIUM 40 MG TABLET.DR PO SCH (10:29)
[2019-07-01] MEDS: DULOXETINE HCL 30 MG CAPSULE.DR PO SCH (10:29)
[2019-07-01] MEDS: POTASSIUM CHLORIDE 20 MEQ PACKET PO SCH (10:37)
[2019-07-01] MEDS: ALLOPURINOL 100 MG TABLET PO SCH (10:49)
[2019-07-01] MEDS: FOLIC ACID 1 MG TABLET PO SCH (10:49)
--- NOTE | 2019-07-01 12:01 | PDOC TRANSFER SUMMARY ---
Impression - Admit/DC Date/PCP Admission Date/Primary Care Provider: 06/27/19 15:36 TERRANCE MARINELLI MD Discharge Date: 07/01/19 - Discharge Diagnosis (1) Hypertension Is this a current diagnosis for this admission?: Yes (2) Altered mental status Is this a current diagnosis for this admission?: Yes (3) Renal failure Is this a current diagnosis for this admission?: Yes (4) Rhabdomyolysis Is this a current diagnosis for this admission?: Yes (5) Diarrhea Is this a current diagnosis for this admission?: Yes - Assessment Summary: I anticipate discharge tomorrow , however when I told this to the patient her son actually called on the phone he stated that he would like the patient to be placed in either assisted living or some sort of rehab facility time of discharge.. Evidently he is the primary caregiver and states he is unable to help her physical therapy and mobility Patient is wheezing when I talked to her and seems short of breath but auscultation by stethoscope does not sound tight. I went ahead and ordered DuoNeb treatments every 4 hours as needed. I have also contacted discharge planning to assess her needs. 07/01/2019 for discharge planning concerning placement issues Blood pressure 146/61 appears to be stable, pulse is anywhere from 56-75 stable, patient is afebrile 98 3 O2 sat 95% on 1 L Will DC oxygen and find out what her room air saturations are ambulate patient on room air as well - Additional Information Resuscitation Status: Full Code Discharge Diet: As Tolerated Discharge Activity: Balance Activity w/Rest Referrals: TERRANCE MARINELLI MD [Primary Care Provider] - Prescriptions: Ipratropium/Albuterol Sulfate [Duoneb 3 ml Ampul] 3 ml NEB RTQ4HP PRN #60 vial.neb PRN Reason: Diphenoxylate HCl/Atrop Sulf [Lomotil 2.5 mg Tablet] 1 tab PO QIDP PRN #20 tablet PRN Reason: Nystatin [Mycostatin Cream 15 gm] 1 applic TP BID 30 Days #30 tube Potassium Chloride [Potassium Chloride 20 Meq Packet] 20 meq PO Q12 #60 packet Home Medications: Allopurinol [Zyloprim 100 mg Tablet] 200 mg PO DAILY 03/26/18 Carvedilol 25 mg PO Q12 03/26/18 Duloxetine HCl 60 mg PO DAILY 03/26/18 Folic Acid 2 mg PO DAILY 03/26/18 Infliximab [Remicade Inj 100 mg Vial] 100 mg IV .[id number] PRN 03/26/18 Methotrexate Sodium [Methotrexate] 10 mg PO WE@1000 PRN 03/26/18 Pantoprazole Sodium 40 mg PO BID 03/26/18 Simvastatin 20 mg PO QHS 03/26/18 Telmisartan 80 mg PO DAILY 03/26/18 Ergocalciferol (Vitamin D2) [Drisdol 50,000 unit (1.25MG) Capsule] 50,000 unit PO WE@1000 04/06/18 Gabapentin [Neurontin 300 mg Capsule] 1 - 2 cap PO TID 04/06/18 Betamethasone Dipropionate [Diprosone Cream] 1 applic TP BID 06/27/19 Oxycodone HCl/Acetaminophen [Percocet 10-325 mg Tablet] 1 each PO Q4HP PRN 06/27/19 Triamcinolone Acetonide [Aristocort 0.1% Ointment] 1 applic TP BID 06/27/19 Acetaminophen [Tylenol 325 mg Tablet] 650 mg PO Q6HP PRN tablet 07/01/19 Diphenoxylate HCl/Atrop Sulf [Lomotil 2.5 mg Tablet] 1 tab PO QIDP PRN #20 tablet 07/01/19 Ipratropium/Albuterol Sulfate [Duoneb 3 ml Ampul] 3 ml NEB RTQ4HP PRN #60 vial.neb 07/01/19 Nystatin [Mycostatin Cream 15 gm] 1 applic TP BID 30 Days #30 tube 07/01/19 Potassium Chloride [Potassium Chloride 20 Meq Packet] 20 meq PO Q12 #60 packet 07/01/19 History of Present Illiness History of Present Illness: MARILU RIZO is a 78 year old female Physical Exam Vital Signs: Temp Pulse Resp BP Pulse Ox 98.3 F 67 24 H 146/61 H 95 07/01/19 08:29 07/01/19 08:29 07/01/19 08:29 07/01/19 08:29 07/01/19 08:29 Intake & Output 06/30/19 07/01/19 07/02/19 06:59 06:59 06:59 Intake Total 2800 1957 Output Total 1 0 Balance 9 1958 Weight 96.6 kg 98.4 kg Results Laboratory Results: WBC 4.3 10^3/uL (4.0-10.5) 06/30/19 06:55 RBC 2.23 10^6/uL (3.72-5.28) L 06/30/19 06:55 Hgb 8.1 g/dL (12.0-15.5) L 06/30/19 06:55 Hct 24.1 % (36.0-47.0) L 06/30/19 06:55 MCV 108 fl (80-97) H 06/30/19 06:55 MCH 36.5 pg (27.0-33.4) H 06/30/19 06:55 MCHC 33.7 g/dL (32.0-36.0) 06/30/19 06:55 RDW 14.5 % (11.5-14.0) H 06/30/19 06:55 Plt Count 95 10^3/uL (150-450) L 06/30/19 06:55 Lymph % (Auto) Not Reportable 06/27/19 12:45 Harvey % (Auto) Not Reportable 06/27/19 12:45 Eos % (Auto) Not Reportable 06/27/19 12:45 Baso % (Auto) Not Reportable 06/27/19 12:45 Absolute Neuts (auto) Not Reportable 06/27/19 12:45 Absolute Lymphs (auto) Not Reportable 06/27/19 12:45 Absolute Monos (auto) Not Reportable 06/27/19 12:45 Absolute Eos (auto) Not Reportable 06/27/19 12:45 Absolute Basos (auto) Not Reportable 06/27/19 12:45 Total Counted 100 06/27/19 12:45 Seg Neutrophils % Not Reportable 06/27/19 12:45 Seg Neuts % (Manual) 93 % (42-78) H 06/27/19 12:45 Lymphocytes % (Manual) 5 % (13-45) L 06/27/19 12:45 Monocytes % (Manual) 2 % (3-13) L 06/27/19 12:45 Eosinophils % (Manual) 0 % (0-6) 06/27/19 12:45 Basophils % (Manual) 0 % (0-2) 06/27/19 12:45 Abs Neuts (Manual) 13.1 10^3/uL (1.7-8.2) H 06/27/19 12:45 Abs Lymphs (Manual) 0.7 10^3/uL (0.5-4.7) 06/27/19 12:45 Abs Monocytes (Manual) 0.3 10^3/uL (0.1-1.4) 06/27/19 12:45 Absolute Eos (Manual) 0.0 10^3/uL (0.0-0.6) 06/27/19 12:45 Abs Basophils (Manual) 0.0 10^3/uL (0.0-0.2) 06/27/19 12:45 Platelet Comment ADEQUATE 06/27/19 12:45 Anisocytosis SLIGHT 06/27/19 12:45 Macrocytosis 1+ 06/27/19 12:45 PT 15.3 SEC (11.4-15.4) 06/27/19 12:45 INR 1.20 06/27/19 12:45 D-Dimer 3.86 ug/mL (0.00-0.50) H 06/30/19 14:20 Carbonic Acid 1.01 mmol/L (1.05-1.35) L 06/28/19 05:20 HCO3/H2CO3 Ratio 21:1 06/28/19 05:20 ABG pH 7.43 (7.35-7.45) 06/28/19 05:20 ABG pCO2 33.7 mmHg (35-45) L 06/28/19 05:20 ABG pO2 90.6 mmHg (80-100) 06/28/19 05:20 ABG HCO3 21.7 mmol/L (20-24) 06/28/19 05:20 ABG Total CO2 22.7 mmol/L (21-25) 06/28/19 05:20 ABG O2 Saturation 97.2 % (94-98) 06/28/19 05:20 ABG Base Excess -2.3 mmol/L 06/28/19 05:20 VBG pH 7.39 (7.30-7.42) 06/27/19 14:07 VBG pCO2 41.6 mmHg (35-63) 06/27/19 14:07 VBG HCO3 24.7 mmol/L (20-32) 06/27/19 14:07 VBG Base Excess -0.2 mmol/L 06/27/19 14:07 FiO2 28% 06/28/19 05:20 Sodium 136.5 mmol/L (137-145) L 06/30/19 06:55 Potassium 3.6 mmol/L (3.6-5.0) 06/30/19 06:55 Chloride 108 mmol/L (98-107) H 06/30/19 06:55 Carbon Dioxide 21 mmol/L (22-30) L 06/30/19 06:55 Anion Gap 8 (5-19) 06/30/19 06:55 BUN 14 mg/dL (7-20) 06/30/19 06:55 Creatinine 1.24 mg/dL (0.52-1.25) 06/30/19 06:55 Est GFR ( Amer) 51 (>60) L 06/30/19 06:55 Est GFR (MDRD) Non-Af 42 (>60) L 06/30/19 06:55 Glucose 109 mg/dL (75-110) 06/30/19 06:55 POC Glucose 156 mg/dL (70-110) H 06/28/19 06:11 Lactic Acid 1.3 mmol/L (0.7-2.1) 06/27/19 14:07 Calcium 8.5 mg/dL (8.4-10.2) 06/30/19 06:55 Total Bilirubin 1.1 mg/dL (0.2-1.3) 06/27/19 12:45 Direct Bilirubin 0.3 mg/dL (0.0-0.4) 06/27/19 12:45 Neonat Total Bilirubin Not Reportable 06/27/19 12:45 Neonat Direct Bilirubin Not Reportable 06/27/19 12:45 Neonat Indirect Bili Not Reportable 06/27/19 12:45 AST 73 U/L (14-36) H 06/27/19 12:45 ALT 25 U/L (<35) 06/27/19 12:45 Alkaline Phosphatase 117 U/L (38-126) 06/27/19 12:45 Creatine Kinase 1482 U/L (30-135) H 06/29/19 04:35 CK-MB (CK-2) 4.37 ng/mL (<4.55) 06/30/19 14:20 Troponin I 0.037 ng/mL 06/30/19 14:20 Total Protein 7.4 g/dL (6.3-8.2) 06/27/19 12:45 Albumin 4.5 g/dL (3.5-5.0) 06/27/19 12:45 Urine Color YELLOW 06/27/19 14:43 Urine Appearance CLEAR 06/27/19 14:43 Urine pH 5.0 (5.0-9.0) 06/27/19 14:43 Ur Specific [place] 1.013 06/27/19 14:43 Urine Protein NEGATIVE mg/dL (NEGATIVE) 06/27/19 14:43 Urine Glucose (UA) NEGATIVE mg/dL (NEGATIVE) 06/27/19 14:43 Urine Ketones NEGATIVE mg/dL (NEGATIVE) 06/27/19 14:43 Urine Blood LARGE (NEGATIVE) H 06/27/19 14:43 Urine Nitrite NEGATIVE (NEGATIVE) 06/27/19 14:43 Urine Bilirubin NEGATIVE (NEGATIVE) 06/27/19 14:43 Urine Urobilinogen NEGATIVE mg/dL (<2.0) 06/27/19 14:43 Ur Leukocyte Esterase NEGATIVE (NEGATIVE) 06/27/19 14:43 Urine WBC (Auto) 1 /HPF 06/27/19 14:43 U Hyaline Cast (Auto) 25 /LPF 06/27/19 14:43 Urine Bacteria (Auto) TRACE /HPF 06/27/19 14:43 Squamous Epi Cells Auto 4 /HPF 06/27/19 14:43 Urine Mucus (Auto) RARE /LPF 06/27/19 14:43 Urine Ascorbic Acid NEGATIVE (NEGATIVE) 06/27/19 14:43 Stl C. Difficile GDH Ag NEGATIVE (NEGATIVE) 06/28/19 18:10 Stl C.difficile Tox A&B NEGATIVE (NEGATIVE) 06/28/19 18:10 06/27/19 06/30/19 12:45 14:20 CK-MB (CK-2) 21.60 H 4.37 Troponin I < 0.012 0.037 Impressions: Chest X-Ray 06/27/19 13:25 IMPRESSION: LOW LUNG VOLUMES. NO SIGNIFICANT RADIOGRAPHIC FINDING IN THE CHEST. Cervical Spine CT 06/27/19 13:38 IMPRESSION: CHRONIC DEGENERATIVE CHANGES. NO ACUTE FINDINGS. Head CT 06/27/19 13:38 IMPRESSION: CHRONIC CHANGES OF ATROPHY AND MICROVASCULAR ISCHEMIA. NO ACUTE PROCESS. EVIDENCE OF ACUTE STROKE: NO. Stroke Is this a Stroke Patient?: No Acute Heart Failure - Is this a Heart Failure Patient?: No
[2019-07-01 12:34] VITALS: BP 179/67
[2019-07-01] MEDS: IPRATROPIUM/ALBUTEROL 0.5-2.5 MG/3 ML AMPUL NEB PRN (13:07)
[2019-07-01] MEDS: NYSTATIN CREAM 15 GM TP SCH (14:27)
== END 2019-07-01 16:10 | DRG 683 ==
LOC: ER 13:11 → EH 15:36 → 4N 20:51 → 4W 06-28 13:01
PROVIDERS: ADMIT Family Medicine; ATTEND Family Medicine
PROC: 3E0234Z Introduction of Serum, Toxoid and Vaccine into Muscle, Percutaneous Approach (ICD-10-PCS; principal; 2019-07-01)
DX: I12.9 Hypertensive chronic kidney disease with stage 1 through stage 4 chronic kidney disease, or unspecified chronic kidney disease (principal); N17.9 Acute kidney failure, unspecified; M62.82 Rhabdomyolysis; N18.9 Chronic kidney disease, unspecified; E78.00 Pure hypercholesterolemia, unspecified; K21.9 Gastro-esophageal reflux disease without esophagitis; B37.2 Candidiasis of skin and nail; R01.1 Cardiac murmur, unspecified; R41.82 Altered mental status, unspecified; R19.7 Diarrhea, unspecified; Z60.2 Problems related to living alone; Z23 Encounter for immunization
CPT/HCPCS: 36415; 36600; 70450; 71045; 72125; 80048; 80053; 81001; 82550; 82553; 82803; 82962; 83605; 84484; 85025; 85027; 85379; 85610; 87040; 87086; 87324; 87449; 90686; 93005; 93010; 93306; 94660; 96360; 99285; J1644; J3490; J7030; J7620

== ENCOUNTER 2019-08-10 10:49 | Observation (INO) | payer MEDICARE, OTHER ==
--- NOTE | 2019-08-10 11:12 | ER Document Report ---
ED Medical Screen (RME) - General Chief Complaint: Altered Mental Status Stated Complaint: POSSIBLE STROKE Time Seen by Provider: 08/10/19 11:08 Primary Care Provider: MARTHA BENTLEY MD [Primary Care Provider] - Follow up as needed TRAVEL OUTSIDE OF THE [place] IN LAST 30 DAYS: No - HPI Notes: 08/10/19 11:36 39-year-old female to the emergency department with family with complaints of "possible strokelike symptoms" since yesterday. Family with patient states that she has had confusion over the past day. Yesterday she went to [place] to have her foot checked and later that afternoon she is started having confusion. Family reports that she would be talking to them and then stop and it seemed like she was having difficulty getting her words out. He denied any facial adrianna op, localized extremity weakness, or any other focal neurological deficits. They do admit that she seemed a little bit more overly sleepy lately. She just recently got up from [facility] after she was found down for likely over 24 hours and was in rhabdomyolysis with acute kidney injury. She has been doing well since discharge from [place] until this. I performed a brief medical screening exam on this patient and determined he needs further management and evaluation by means at ER provider. I placed initial orders to help expedite in his treatment plan today to include lab work and medications. - Related Data Allergies/Adverse Reactions: hydroxychloroquine sulfate [From Plaquenil] Allergy (Mild, Verified 03/11/18 11:34) Generalized Itching Sulfa (Sulfonamide Antibiotics) Allergy (Mild, Verified 03/11/18 11:34) Unknown reaction TAPE Allergy (Mild, Uncoded 04/08/11 11:03) Blisters Past Medical History - Social History Chew tobacco use (# tins/day): No Frequency of alcohol use: None Drug Abuse: None - Past Medical History Cardiac Medical History: Reports: Hx Hypercholesterolemia, Hx Hypertension, Hx Heart Murmur Denies: Hx Atrial Fibrillation, Hx Congestive Heart Failure, Hx Coronary Artery Disease, Hx Heart Attack, Hx Peripheral Vascular Disease, Hx Pulmonary Embolism Pulmonary Medical History: Reports: Hx Bronchitis, Hx Sleep Apnea - uses CPAP Denies: Hx Asthma, Hx Pneumonia, Hx Respiratory Failure, Hx Tuberculosis Neurological Medical History: Denies: Hx Cerebrovascular Accident, Hx Seizures Endocrine Medical History: Denies: Hx Hyperthyroidism, Hx Hypothyroidism Renal/ Medical History: Denies: Hx End Stage Renal Disease, Hx Kidney Stones, Hx Peritoneal Dialysis Malignancy Medical History: Denies: Hx Leukemia, Hx Lung Cancer GI Medical History: Reports: Hx Gastroesophageal Reflux Disease, Hx Ulcer. Denies: Hx Crohn's Disease, Hx Hepatitis, Hx Hiatal Hernia, Hx Irritable Bowel, Hx Liver Failure, Hx Pancreatitis Musculoskeltal Medical History: Reports Hx Arthritis, Denies Hx Fibromyalgia, Denies Hx Muscular Dystrophy, Denies Hx Systemic Lupus Erythematosus Traumatic Medical History: Denies: Hx Fractures Infectious Medical History: Denies: Hx Hepatitis, Hx HIV Past Surgical History: Reports: Hx Cholecystectomy, Hx Orthopedic Surgery - right shoulder. Denies: Hx Appendectomy, Hx Bowel Surgery, Hx Section, Hx Colostomy, Hx Coronary Artery Bypass Graft, Hx Gastric Bypass Surgery, Hx Herniorrhaphy, Hx Hysterectomy, Hx Mastectomy, Hx Open Heart Surgery, Hx Pacemaker, Hx Tonsillectomy, Hx Tubal Ligation Physical Exam - Vital signs Vitals: Temp Pulse BP Pulse Ox 98.3 F 66 120/58 L 95 08/10/19 10:55 08/10/19 10:55 08/10/19 10:55 08/10/19 10:55 Course - Vital Signs Vital signs: Temp Pulse Resp BP Pulse Ox 98.3 F 66 120/58 L 95 08/10/19 10:55 08/10/19 10:55 08/10/19 10:55 08/10/19 10:55 Doctor's Discharge - Discharge Referrals: MARTHA BENTLEY MD [Primary Care Provider] - Follow up as needed
--- NOTE | 2019-08-10 11:53 | RADIOLOGY REPORT (SQ) ---
EXAM DESCRIPTION: CT HEAD WITHOUT COMPLETED DATE/TIME: 08/10/2019 11:40 am REASON FOR STUDY: AMS COMPARISON: 06/27/2019 TECHNIQUE: Axial images acquired through the brain without intravenous contrast. Images reviewed wi th bone, brain and subdural windows. Additional sagittal and coronal reconstructions were generated. Images stored on PACS. All CT scanners at this facility use dose modulation, iterative reconstruction, and/or weight based d osing when appropriate to reduce radiation dose to as low as reasonably achievable (ALARA). [facility]: Dose Right [facility]: CareDose [facility]: Dose Right [facility]: Teradose 4D [facility]: Smart [employer] RADIATION DOSE: CT Rad equipment meets quality standard of care and radiation dose reduction techniq ues were employed. CTDIvol: 53.2 mGy. DLP: 964 mGy-cm. mGy. LIMITATIONS: None. FINDINGS: VENTRICLES: Normal size and contour. CEREBRUM: No masses. No hemorrhage. No midline shift. No evidence for acute infarction. Few scatte red areas of low density in the white matter most likely chronic small vessel ischemic changes. CEREBELLUM: No masses. No hemorrhage. No alteration of density. No evidence for acute infarction. EXTRAAXIAL SPACES: No fluid collections. No masses. ORBITS AND GLOBE: No intra- or extraconal masses. Normal contour of globe without masses. CALVARIUM: No fracture. PARANASAL SINUSES: No fluid or mucosal thickening. SOFT TISSUES: No mass or hematoma. OTHER: No other significant finding. IMPRESSION: MILD CHRONIC MICROVASCULAR ISCHEMIA. NO ACUTE IMAGING FINDINGS IN THE BRAIN. EVIDENCE OF ACUTE STROKE: NO. COMMENT: Quality ID # [id number]: Final reports with documentation of one or more dose reduction techniques (e.g., Automated exposure control, adjustment of the mA and/or kV according to patient size, use of iterative reconstruction technique) TECHNICAL DOCUMENTATION: JOB ID: [id number] [employer]- All Rights Reserved Reading location - IP/workstation name: [email or web address]
--- NOTE | 2019-08-10 12:10 | RADIOLOGY REPORT (SQ) ---
EXAM DESCRIPTION: CHEST SINGLE VIEW COMPLETED DATE/TIME: 08/10/2019 11:58 am REASON FOR STUDY: AMS COMPARISON: AP view of the chest from 06/27/2019. EXAM PARAMETERS: NUMBER OF VIEWS: One view. TECHNIQUE: Single frontal radiographic view of the chest acquired. RADIATION DOSE: NA LIMITATIONS: None. FINDINGS: LUNGS AND PLEURA: Low inspiratory lung volumes and probable left basilar atelectasis. The re is no superimposed consolidation, sizeable pleural effusion or pneumothorax. MEDIASTINUM AND HILAR STRUCTURES: Stable mediastinal and hilar contours. HEART AND VASCULAR STRUCTURES: Stable cardiac silhouette. The pulmonary vasculature is within normal limits given the low inspiratory lung volumes. BONES: No acute findings. HARDWARE: Arthroplasty hardware in the right shoulder. OTHER: No other finding. IMPRESSION: Low inspiratory lung volumes and left basilar atelectasis. TECHNICAL DOCUMENTATION: JOB ID: [id number] [employer]- All Rights Reserved Reading location - IP/workstation name: [email or web address]
[2019-08-10 12:24] LABS: INTERNATIONAL RATION (INR) 1.25; PROTHROMBIN TIME 15.8 SEC (11.4-15.4)
[2019-08-10 12:25] LABS: ABSOLUTE BASOPHILS # (AUTO) 0.1 10^3/uL (0.0-0.2); ABSOLUTE EOSINOPHILS # (AUTO) 0.4 10^3/uL (0.0-0.6); ABSOLUTE LYMPHOCYTES (AUTO) 1.9 10^3/uL (0.5-4.7); ABSOLUTE MONOCYTES (AUTO) 0.8 10^3/uL (0.1-1.4); ABSOLUTE NEUT (AUTO) 4.4 10^3/uL (1.7-8.2); BASOPHILS % (AUTO) 0.8 % (0-2); HEMATOCRIT 28.5 % (36.0-47.0); HEMOGLOBIN 9.7 g/dL (12.0-15.5); LYMPHOCYTES % (AUTO) 25.7 % (13-45); MEAN CORPUSCULAR HEMOGLOBIN 36.9 pg (27.0-33.4); MEAN CORPUSCULAR HGB CONC 34.2 g/dL (32.0-36.0); MEAN CORPUSCULAR VOLUME 108 fl (80-97); MONOCYTES % (AUTO) 10.6 % (3-13); PARTIAL THROMBOPLASTIN TIME 28.9 SEC (23.5-35.8); PLATELET COUNT 152 10^3/uL (150-450); RED BLOOD COUNT 2.64 10^6/uL (3.72-5.28); RED CELL DISTRIBUTION WIDTH 13.2 % (11.5-14.0); SEGMENTED NEUTROPHILS % (AUTO) 57.9 % (42-78); TOTAL CELLS COUNTED % (AUTO) 100 %; WHITE BLOOD COUNT 7.6 10^3/uL (4.0-10.5)
[2019-08-10 13:01] LABS: ALBUMIN 3.9 g/dL (3.5-5.0); ALKALINE PHOSPHATASE 83 U/L (38-126); ANION GAP 11 (5-19); ASPARTATE AMINO TRANSFERASE 33 U/L (14-36); BILIRUBIN,DIRECT 0.2 mg/dL (0.0-0.4); BILIRUBIN,TOTAL 0.9 mg/dL (0.2-1.3); BLOOD UREA NITROGEN 61 mg/dL (7-20); CALCIUM 9.6 mg/dL (8.4-10.2); CARBON DIOXIDE 28 mmol/L (22-30); CHLORIDE 96 mmol/L (98-107); CREATINE KINASE 423 U/L (30-135); CREATINE KINASE MB 7.08 ng/mL (<4.55); GLUCOSE 135 mg/dL (75-110); POTASSIUM 4.2 mmol/L (3.6-5.0); TOTAL PROTEIN 7.5 g/dL (6.3-8.2)
[2019-08-10 13:02] LABS: TROPONIN I < 0.012 ng/mL
[2019-08-10] MEDS ORDERED: NORMAL SALINE 1000 ML 1,000 ML IV ONE (13:37)
--- NOTE | 2019-08-10 13:42 | ER Document Report ---
ED General - General Chief Complaint: Altered Mental Status Stated Complaint: POSSIBLE STROKE Time Seen by Provider: 08/10/19 11:08 Primary Care Provider: MARTHA BENTLEY MD [NO LOCAL MD] - Follow up as needed Notes: HPI: 79-year-old female that presents today with family with some altered mental status and slurred speech having trouble finding her words last evening. No slurred speech today but still some mild intermittent confusion. Patient did fall yesterday backwards when she was using a walker and twisted her left ankle. She did have an x-ray at an outpatient center yesterday which was unremarkable. Patient denies any fevers, headache, neck pain, anterior posterior rib pain, chest pain, abdominal pain, and does complain of some mild right-sided hip pain. No focal weakness or numbness according to family other than the slurred speech. Patient did get out of rehabilitation 1 week ago after 3 weeks day secondary to a fall being found alone on the floor for greater than 24 hours. ROS: See HPI All other review of systems reviewed and otherwise negative Reviewed vital signs and nursing note as charted by RN. PHYSICAL EXAM: CONSTITUTIONAL: Alert and oriented and responds appropriately to questions. Well-appearing; well-nourished HEAD: Normocephalic; atraumatic EYES: PERRL; full extraocular range of motion; no nystagmus ENT: Normal nose; no rhinorrhea; moist mucous membranes; pharynx without lesions noted NECK: Supple without meningismus; non-tender; carotid bruit; no cervical lym phadenopathy, no masses CARD: Regular rate and rhythm; no murmurs; symmetric distal pulses RESP: Normal chest excursion without splinting or tachypnea; breath sounds clear and equal bilaterally; no wheezes, no rhonchi, no rales ABD/GI: Normal bowel sounds; non-distended; soft, non-tender; no palpable organomegaly or masses BACK: The back appears normal and is non-tender to palpation EXT: Normal ROM in all joints; non-tender to palpation; no edema SKIN: No acute lesions noted NEURO: CN 2-12 intact; 5/5 bilateral upper and lower extremity strength with sensation intact to light touch PSYCH: The patient's mood and manner are appropriate. Grooming and personal hygiene are appropriate. TRAVEL OUTSIDE OF THE [place] IN LAST 30 DAYS: No - Related Data Allergies/Adverse Reactions: hydroxychloroquine sulfate [From Plaquenil] Allergy (Mild, Verified 03/11/18 11:34) Generalized Itching Sulfa (Sulfonamide Antibiotics) Allergy (Mild, Verified 03/11/18 11:34) Unknown reaction TAPE Allergy (Mild, Uncoded 04/08/11 11:03) Blisters Past Medical History - Social History Smoking Status: Never Smoker Chew tobacco use (# tins/day): No Frequency of alcohol use: None Drug Abuse: None Family History: Reviewed & Not Pertinent Patient has suicidal ideation: No Patient has homicidal ideation: No - Past Medical History Cardiac Medical History: Reports: Hx Hypercholesterolemia, Hx Hypertension, Hx Heart Murmur Denies: Hx Atrial Fibrillation, Hx Congestive Heart Failure, Hx Coronary Artery Disease, Hx Heart Attack, Hx Peripheral Vascular Disease, Hx Pulmonary Embolism Pulmonary Medical History: Reports: Hx Bronchitis, Hx Sleep Apnea - uses CPAP Denies: Hx Asthma, Hx Pneumonia, Hx Respiratory Failure, Hx Tuberculosis Neurological Medical History: Denies: Hx Cerebrovascular Accident, Hx Seizures Endocrine Medical History: Denies: Hx Hyperthyroidism, Hx Hypothyroidism Renal/ Medical History: Denies: Hx End Stage Renal Disease, Hx Kidney Stones, Hx Peritoneal Dialysis Malignancy Medical History: Denies: Hx Leukemia, Hx Lung Cancer GI Medical History: Reports: Hx Gastroesophageal Reflux Disease, Hx Ulcer. Denies: Hx Crohn's Disease, Hx Hepatitis, Hx Hiatal Hernia, Hx Irritable Bowel, Hx Liver Failure, Hx Pancreatitis Musculoskeletal Medical History: Reports Hx Arthritis, Denies Hx Fibromyalgia, Denies Hx Muscular Dystrophy, Denies Hx Systemic Lupus Erythematosus Traumatic Medical History: Denies: Hx Fractures Infectious Medical History: Denies: Hx Hepatitis, Hx HIV Past Surgical History: Reports: Hx Cholecystectomy, Hx Orthopedic Surgery - right shoulder. Denies: Hx Appendectomy, Hx Bowel Surgery, Hx Section, Hx Colostomy, Hx Coronary Artery Bypass Graft, Hx Gastric Bypass Surgery, Hx Herniorrhaphy, Hx Hysterectomy, Hx Mastectomy, Hx Open Heart Surgery, Hx Pacemaker, Hx Tonsillectomy, Hx Tubal Ligation - Immunizations Hx Pneumococcal Vaccination: 05/30/17 Physical Exam - Vital signs Vitals: Temp Pulse BP Pulse Ox 98.3 F 66 120/58 L 95 08/10/19 10:55 08/10/19 10:55 08/10/19 10:55 08/10/19 10:55 Course - Re-evaluation Re-evalutation: Given the history and physical and patient's age, we will obtain basic labs, CT scan of the head, x-ray of the left ankle, x-ray of the right hip, basic labs, catheterized urine analysis, and reassess. I would like to assess the possibility of an intracranial bleed, stroke, infection, or other acute process. 08/10/19 13:42 EKG shows heart of 63, normal sinus rhythm, normal axis, no ST elevation or depression 08/10/19 14:16 Labs and imaging as recorded. It appears that the patient is suffering from acute renal failure. No obvious urinary tract infection. CT scan of the head and x-ray of the chest as recorded. I have provided a liter fluid. Patient will be admitted to the hospitalist for further evaluation and treatment. - Vital Signs Vital signs: Temp Pulse Resp BP Pulse Ox 98.3 F 75 17 87/52 L 99 08/10/19 10:55 08/10/19 11:07 08/10/19 13:22 08/10/19 13:22 08/10/19 13:22 - Laboratory Result Diagrams: 08/10/19 12:10 08/10/19 12:10 Laboratory results interpreted by me: 08/10/19 08/10/19 08/10/19 12:10 12:10 12:10 RBC 2.64 L Hgb 9.7 L Hct 28.5 L MCV 108 H MCH 36.9 H PT 15.8 H Sodium 135.1 L Chloride 96 L BUN 61 H Creatinine 2.83 H Est GFR ( Amer) 20 L Est GFR (MDRD) Non-Af 16 L Glucose 135 H Creatine Kinase 423 H CK-MB (CK-2) 08/10/19 12:10 RBC Hgb Hct MCV MCH PT Sodium Chloride BUN Creatinine Est GFR ( Amer) Est GFR (MDRD) Non-Af Glucose Creatine Kinase CK-MB (CK-2) 7.08 H Critical Care Note - Critical Care Note Total time excluding time spent on procedures (mins): 35 Discharge - Discharge Clinical Impression: Acute renal failure Qualifiers: Acute renal failure type: unspecified Qualified Code(s): N17.9 - Acute kidney failure, unspecified Condition: Fair Disposition: ADMITTED INPATIENT Admitting Provider: Flores (Hospitalist) Unit Admitted: IMCU Referrals: MARTHA BENTLEY MD [NO LOCAL MD] - Follow up as needed
[2019-08-10 13:48] LABS: APPEARANCE,URINE CLEAR; BILIRUBIN,URINE NEGATIVE (NEGATIVE); COLOR,URINE YELLOW; GLUCOSE, URINE NEGATIVE (NEGATIVE); KETONES,URINE NEGATIVE (NEGATIVE); PROTEIN,URINE NEGATIVE (NEGATIVE); URINE SPECIFIC GRAVITY 1.008; UROBILINOGEN,URINE NEGATIVE mg/dL (<2.0)
--- NOTE | 2019-08-10 15:01 | RADIOLOGY REPORT (SQ) ---
EXAM DESCRIPTION: ANKLE LEFT COMPLETE COMPLETED DATE/TIME: 08/10/2019 2:38 pm REASON FOR STUDY: tr1; fall COMPARISON: None. NUMBER OF VIEWS: Three views. TECHNIQUE: AP, lateral, and oblique without weight bearing radiographic images acquired of the left ankle. LIMITATIONS: None. FINDINGS: MINERALIZATION: Osteopenia. BONES: No acute fracture or dislocation. No osseous lesions. No osteophytes. JOINTS: No effusions. SOFT TISSUES: Vascular calcifications and diffuse soft tissue swelling. There is no subcutaneous emp hysema or radiopaque foreign body. OTHER: The ankle mortise and talar dome are intact. IMPRESSION: No acute osseous abnormality of the left foot. TECHNICAL DOCUMENTATION: JOB ID: [id number] [employer]- All Rights Reserved Reading location - IP/workstation name: [email or web address]
[2019-08-10] MEDS ORDERED: IPRATROPIUM/ALBUTEROL 0.5-2.5 MG/3 ML AMPUL NEB PRN (15:06)
[2019-08-10] MEDS ORDERED: ONDANSETRON HCL INJ/PF 4 MG/2 ML SDV IV PRN (15:06)
[2019-08-10] MEDS ORDERED: ACETAMINOPHEN 325 MG TABLET PO PRN (15:06)
[2019-08-10] MEDS ORDERED: TEMAZEPAM 15 MG CAPSULE PO PRN (15:06)
[2019-08-10] MEDS ORDERED: PROMETHAZINE HCL INJ 25 MG/1 ML VIAL IV PRN (15:06)
--- NOTE | 2019-08-10 15:07 | RADIOLOGY REPORT (SQ) ---
EXAM DESCRIPTION: HIP RIGHT AP/LATERAL COMPLETED DATE/TIME: 08/10/2019 2:38 pm REASON FOR STUDY: tr1; fall COMPARISON: AP and lateral views of the left hip from 05/09/2018 NUMBER OF VIEWS: Two views. TECHNIQUE: AP pelvis and additional frog-leg view of the right hip. LIMITATIONS: None. FINDINGS: MINERALIZATION: Osteopenia. RIGHT HIP: Femoroacetabular joint osteoarthrosis. There is no fracture or dislocation. LEFT HIP: Status post left MARIE. The alignment of the hardware is unchanged from 05/09/2018. There is no periprosthetic fracture. PUBIS AND ISCHIUM: The ilioischial and iliopectineal lines are intact. There is no diastasis of the pubic symphysis. PELVIS: No fracture. SACRUM: Obscured by overlying bowel gas. LOWER LUMBAR SPINE: Advanced spondylosis at L5-S1. SOFT TISSUES: No findings. OTHER: No other finding. IMPRESSION: 1. Uncomplicated left MARIE. 2. No acute osseous abnormality of the right hip. TECHNICAL DOCUMENTATION: JOB ID: [id number] [employer]- All Rights Reserved Reading location - IP/workstation name: [email or web address]
[2019-08-10 15:50] LABS: ABSOLUTE RETICS # 0.026 10^6/uL (0.028-0.122)
[2019-08-10] MEDS ORDERED: (PENDING PHARMACY ID) (Oxycodone Hcl/Acetaminophen [Percocet 10-325 Mg Tablet] 1 EACH) PO PRN (16:01)
[2019-08-10] MEDS ORDERED: (PENDING PHARMACY ID) (Cetirizine Hcl [Zyrtec] 10 MG) PO PRN (16:01)
--- NOTE | 2019-08-10 16:01 | PDOC H&P ---
History of Present Illness Admission Date/PCP: 08/10/19 14:57 TERRANCE MARINELLI MD History of Present Illness: MARILU RIZO is a 79 year old female past medical history of CKD, DJD, rh eumatoid arthritis, hypertension, chronic diarrhea and recent rhabdomyolysis for which she was hospitalized at [facility] and was transferred to [place] [facility]hab where she stayed for 3 weeks and was sent home recently. Patient is brought to ED by her family for evaluation of slurred speech and altered mental status after a mechanical fall. Patient had a fall on Friday, when she was using her walker she twisted her ankle and fell backwards, did not sustain any head trauma, did not lose consciousness, fall was witnessed by her son who is at the bedside who states that he did not notice any convulsions. She denies any lightheadedness or palpitation prior to the fall. Patient was taken to an urgent care where they did x-ray of her ankle which did not show any acute abnormalities and patient was sent home. Since the fall patient family have noticed that patient's speech seems slurred at times and she seems confused. Patient herself is very pleasant, stating that she feels like her tongue gets heavier once a while, otherwise denies any focal neurological deficits, she is alert oriented x4, very pleasant and gives very accurate information about her history of present illness and past medical history. CT, ankle x-ray, pelvic x-ray all negative for any acute abnormalities. CP positive for NICK/CKD. Hospitalist consulted for admission. Past Medical History Cardiac Medical History: Reports: Hyperlipidema, Hypertension, Heart Murmur Denies: Atrial Fibrillation, Congestive Heart Failure, Coronary Artery Disease, Myocardial Infarction, Peripheral Vascular Disease, Pulmonary Embolism Pulmonary Medical History: Reports: Bronchitis, Sleep Apnea - uses CPAP Denies: Asthma, Pneumonia, Respiratory Failure, Tuberculosis Neurological Medical History: Denies: Seizures Endocrine Medical History: Denies: Hyperthyroidism, Hypothyroidism Renal/ Medical History: Denies: End Stage Renal Disease Malignancy Medical History: Denies: Leukemia, Lung Cancer GI Medical History: Reports: Gastroesophageal Reflux Disease Denies: Crohn's Disease, Hepatitis, Hiatal Hernia Musculoskeltal Medical History: Reports: Arthritis Denies: Fibromyalgia Hematology: Denies: Anemia, Hemophilia, Sickle Cell Disease Infectious Medical History: Denies: HIV Past Surgical History Past Surgical History: Reports: Cholecystectomy, Orthopedic Surgery - right shoulder Denies: Amputation, Appendectomy, Section, Colostomy, Coronary Artery Bypass Graft, Gastric Bypass Surgery, Herniorrhaphy, Hysterectomy, Mastectomy, Pacemaker, Tonsillectomy, Tubal Ligation Social History Smoking Status: Never Smoker Electronic Cigarette use?: No Hx Recreational Drug Use: No Hx Prescription Drug Abuse: No Family History Family History: Reviewed & Not Pertinent Parental Family History Reviewed: Yes Children Family History Reviewed: Yes Sibling(s) Family History Reviewed.: Yes Medication/Allergy Home Medications: Allopurinol [Zyloprim 100 mg Tablet] 200 mg PO BID 08/10/19 Betamethasone Dipropionate [Betamethasone Dipropionate Ointment] 1 applic TP BID 08/10/19 Calcium Carbonate/Vitamin D3 [Calcium 600 + Vit D Tablet] 1 tab PO BID 08/10/19 Carvedilol [Coreg 25 mg Tablet] 25 mg PO Q12 08/10/19 Cetirizine HCl [Zyrtec] 10 mg PO DAILYP PRN 08/10/19 Cyclosporine 0.05% Oph Emulsio [Restasis 0.05% Opthalmic Droperette] 1 drop OU BID 08/10/19 Diclofenac Sodium [Voltaren] 100 gm TP QIDP PRN 08/10/19 Duloxetine HCl [Cymbalta] 60 mg PO DAILY 08/10/19 Ergocalciferol (Vitamin D2) [Drisdol 50,000 Unit (1.25MG) Capsule] 50,000 unit PO SA@1000 08/10/19 Ferrous Sulfate [Feosol 325 mg Tablet] 325 mg PO DAILY 08/10/19 Folic Acid [Folvite 1 mg Tablet] 2 mg PO DAILY 08/10/19 Furosemide [Lasix 40 mg Tablet] 60 mg PO DAILY 08/10/19 Gabapentin [Neurontin 300 mg Capsule] 300 mg PO QID 08/10/19 Loperamide HCl [Loperamide] 4 mg PO DAILYP PRN 08/10/19 Magnesium Oxide [Mag-Ox 400 mg Tablet] 400 mg PO DAILY 08/10/19 Methotrexate Sodium [Rheumatrex 2.5 mg Tablet] 10 mg PO SA@1000 08/10/19 Oxycodone HCl/Acetaminophen [Percocet 10-325 Mg Tablet] 1 each PO Q6HP PRN 08/10/19 Pantoprazole Sodium [Protonix [address] Tablet] 40 mg PO BID 08/10/19 Potassium Chloride [Klor-Con 10 Meq Capsule ER] 20 meq PO DAILY 08/10/19 Simvastatin 20 mg PO QHS 08/10/19 Telmisartan [Micardis 80 mg Tablet] 80 mg PO DAILY 08/10/19 Triamcinolone Acetonide [Aristocort 0.1% Ointment 15 gm] 1 applic TP BID 08/10/19 Allergies/Adverse Reactions: hydroxychloroquine sulfate [From Plaquenil] Allergy (Mild, Verified 03/11/18 11:34) Generalized Itching Sulfa (Sulfonamide Antibiotics) Allergy (Mild, Verified 03/11/18 11:34) Unknown reaction TAPE Allergy (Mild, Uncoded 04/08/11 11:03) Blisters Physical Exam Vital Signs: Temp Pulse Resp BP Pulse Ox 98.3 F 76 18 104/65 98 08/10/19 10:55 08/10/19 14:07 08/10/19 14:07 08/10/19 14:07 08/10/19 14:07 Intake & Output 08/09/19 08/10/19 08/11/19 06:59 06:59 06:59 Weight 88.451 kg Results Laboratory Results: 08/10/19 12:10 08/10/19 12:10 08/10/19 08/10/19 08/10/19 12:10 12:10 13:15 WBC 7.6 RBC 2.64 L Hgb 9.7 L Hct 28.5 L MCV 108 H MCH 36.9 H MCHC 34.2 RDW 13.2 Plt Count 152 Seg Neutrophils % 57.9 Sodium 135.1 L Potassium 4.2 Chloride 96 L Carbon Dioxide 28 Anion Gap 11 BUN 61 H Creatinine 2.83 H Est GFR ( Amer) 20 L Glucose 135 H Calcium 9.6 Total Bilirubin 0.9 AST 33 Alkaline Phosphatase 83 Total Protein 7.5 Albumin 3.9 Urine Color YELLOW Urine Appearance CLEAR Urine pH 5.0 Ur Specific [place] 1.008 Urine Protein NEGATIVE Urine Glucose (UA) NEGATIVE Urine Ketones NEGATIVE Urine Blood NEGATIVE Urine RBC (Auto) 0 08/10/19 08/10/19 12:10 12:10 Creatine Kinase 423 H CK-MB (CK-2) 7.08 H Troponin I < 0.012 Impressions: Chest X-Ray 08/10/19 11:11 IMPRESSION: Low inspiratory lung volumes and left basilar atelectasis. Head CT 08/10/19 11:11 IMPRESSION: MILD CHRONIC MICROVASCULAR ISCHEMIA. NO ACUTE IMAGING FINDINGS IN THE BRAIN. EVIDENCE OF ACUTE STROKE: NO. Ankle X-Ray 08/10/19 13:35 IMPRESSION: No acute osseous abnormality of the left foot. Hip/Pelvis X-Ray 08/10/19 13:35 IMPRESSION: 1. Uncomplicated left MARIE. 2. No acute osseous abnormality of the right hip. Assessment and Plan - Diagnosis (1) Acute kidney injury superimposed on CKD Is this a current diagnosis for this admission?: Yes Plan: Multifactorial. Likely due to low p.o. intake since fall as well as history of chronic NSAID and PPI intake. Baseline creatinine 2.3. CK 423. Creatinine on this admission 2.8. Admit to telemetry, monitor volume status, avoid nephrotoxic meds, cautious volume resuscitation. CMP tomorrow. (2) History of rheumatoid arthritis Is this a current diagnosis for this admission?: Yes Plan: Not on acute flare. Home meds are methotrexate, folic acid. Restart home meds. Monitor WBC. Outpatient PCP and rheumatology follow-up. (3) Depression Is this a current diagnosis for this admission?: Yes Plan: Denies any suicidal or homicidal ideation. Restart home meds. Outpatient PCP and psychiatry follow-up. (4) Chronic diarrhea Is this a current diagnosis for this admission?: Yes Plan: Takes antidiarrheal chronically. Resume home meds. Monitor volume status and electrolytes. (5) Accidental fall Qualifiers: Encounter type: initial encounter Qualified Code(s): W19.XXXA - Unspecified fall, initial encounter Is this a current diagnosis for this admission?: Yes Plan: CT head, pelvis x-ray and ankle x-ray negative for any acute abnormalities. Fall precautions, seizure precautions, PT. (6) Hypertension Is this a current diagnosis for this admission?: Yes Plan: Normotensive. Euvolemic. Home meds are Lasix 60 mg p.o. daily, carvedilol 25 mg p.o. twice daily, telmisartan 80 mg p.o. daily. Continue carvedilol 25 mg p.o. twice daily, Lasix 60 mg p.o. daily. PRN hydralazine and metoprolol. Hold telmisartan. Restart once creatinine level stable.
[2019-08-10] MEDS ORDERED: HYDRALAZINE HCL INJ/PF 20 MG/1 ML SDV IV PRN (16:03)
[2019-08-10] MEDS ORDERED: OXYCODONE HCL IR 5 MG TABLET PO PRN (16:04)
[2019-08-10] MEDS ORDERED: LOPERAMIDE HCL 2 MG CAPSULE PO PRN (16:05)
[2019-08-10 16:10] LABS: IRON(TIBC) 21.4 ug/dL (37-170)
--- NOTE | 2019-08-10 16:20 | EKG REPORT ---
SEVERITY:- NORMAL ECG - SINUS RHYTHM : Confirmed by: Amanda Staples MD 10-Aug-2019 16:19:08
[2019-08-10 17:20] LABS: FOLATE > 20.00 ng/mL (>2.76)
[2019-08-10] MEDS ORDERED: (PENDING PHARMACY ID) (Calcium Carbonate/Vitamin D3 [Calcium 600 + Vit D Tablet] 1 TAB) PO SCH (18:00)
[2019-08-10] MEDS: DOCUSATE SODIUM 100 MG CAPSULE PO SCH (18:10)
[2019-08-10] MEDS: CALCIUM CARBONATE 250 MG/VITAMIN D3 125 UNIT TABLET PO SCH (18:11)
[2019-08-10] MEDS: GABAPENTIN 300 MG CAPSULE PO SCH (18:11)
[2019-08-10] MEDS: NORMAL SALINE 1000 ML 1,000 ML IV PRN (21:03)
[2019-08-10] MEDS: HEPARIN SOD (PORCINE) 5,000 UNIT/ML 1 ML VIAL SUBCUT SCH (21:08)
[2019-08-10] MEDS: CARVEDILOL 12.5 MG TABLET PO SCH (21:08)
[2019-08-10] MEDS ORDERED: (PENDING PHARMACY ID) (Simvastatin [Simvastatin] 20 MG) PO SCH (22:00)
[2019-08-10] MEDS ORDERED: FAMOTIDINE 20 MG TABLET PO SCH (22:00)
[2019-08-10] MEDS: SIMVASTATIN 10 MG TABLET PO SCH (23:00)
[2019-08-10] MEDS: TRIAMCINOLONE ACETONIDE 0.1% OINT 15 GM TP SCH (23:00)
[2019-08-10] MEDS: FAMOTIDINE 20 MG TABLET PO SCH (23:00)
[2019-08-10] MEDS: ALLOPURINOL 100 MG TABLET PO SCH (23:00)
[2019-08-11] MEDS: GABAPENTIN 300 MG CAPSULE PO SCH ×4 (01:31→17:41)
[2019-08-11] MEDS: HEPARIN SOD (PORCINE) 5,000 UNIT/ML 1 ML VIAL SUBCUT SCH ×3 (06:00→21:43)
[2019-08-11 07:14] LABS: ALBUMIN 3.1 g/dL (3.5-5.0); ALKALINE PHOSPHATASE 70 U/L (38-126); ANION GAP 8 (5-19); ASPARTATE AMINO TRANSFERASE 23 U/L (14-36); BILIRUBIN,DIRECT 0.2 mg/dL (0.0-0.4); BILIRUBIN,TOTAL 0.6 mg/dL (0.2-1.3); BLOOD UREA NITROGEN 44 mg/dL (7-20); CALCIUM 8.6 mg/dL (8.4-10.2); CARBON DIOXIDE 28 mmol/L (22-30); CHLORIDE 100 mmol/L (98-107); GLUCOSE 110 mg/dL (75-110); POTASSIUM 3.8 mmol/L (3.6-5.0); TOTAL PROTEIN 5.6 g/dL (6.3-8.2)
[2019-08-11 08:22] LABS: ABSOLUTE EOSINOPHILS # (AUTO) 0.4 10^3/uL (0.0-0.6); ABSOLUTE LYMPHOCYTES (AUTO) 2.1 10^3/uL (0.5-4.7); ABSOLUTE MONOCYTES (AUTO) 0.8 10^3/uL (0.1-1.4); ABSOLUTE NEUT (AUTO) 2.7 10^3/uL (1.7-8.2); BASOPHILS % (AUTO) 0.4 % (0-2); EOSINOPHILS % (AUTO) 6.1 % (0-6); HEMATOCRIT 25.7 % (36.0-47.0); HEMOGLOBIN 8.7 g/dL (12.0-15.5); MEAN CORPUSCULAR HEMOGLOBIN 36.3 pg (27.0-33.4); MEAN CORPUSCULAR HGB CONC 33.9 g/dL (32.0-36.0); MEAN CORPUSCULAR VOLUME 107 fl (80-97); MONOCYTES % (AUTO) 13.1 % (3-13); PLATELET COUNT 132 10^3/uL (150-450); RED CELL DISTRIBUTION WIDTH 13.4 % (11.5-14.0); SEGMENTED NEUTROPHILS % (AUTO) 45.4 % (42-78); TOTAL CELLS COUNTED % (AUTO) 100 %
[2019-08-11] MEDS ORDERED: FUROSEMIDE 40 MG TABLET PO SCH (10:00)
[2019-08-11] MEDS: DOCUSATE SODIUM 100 MG CAPSULE PO SCH ×2 (10:32→17:39)
[2019-08-11] MEDS: FERROUS SULFATE 325 MG TABLET PO SCH (10:41)
[2019-08-11] MEDS: ALLOPURINOL 100 MG TABLET PO SCH ×2 (10:41→21:51)
[2019-08-11] MEDS: CALCIUM CARBONATE 250 MG/VITAMIN D3 125 UNIT TABLET PO SCH ×2 (10:41→17:41)
[2019-08-11] MEDS: NORMAL SALINE 1000 ML 1,000 ML IV PRN ×2 (10:41→21:51)
[2019-08-11] MEDS: MAGNESIUM OXIDE 400 MG TABLET PO SCH (10:41)
[2019-08-11] MEDS: DULOXETINE HCL 30 MG CAPSULE.DR PO SCH (10:41)
[2019-08-11] MEDS: CARVEDILOL 12.5 MG TABLET PO SCH ×2 (10:42→21:52)
[2019-08-11] MEDS: FOLIC ACID 1 MG TABLET PO SCH (10:42)
[2019-08-11] MEDS: TRIAMCINOLONE ACETONIDE 0.1% OINT 15 GM TP SCH ×2 (10:43→21:52)
[2019-08-11] MEDS: CETIRIZINE 10 MG TABLET PO PRN (19:51)
[2019-08-11] MEDS: OXYCODONE-ACETAMINOPHEN 5-325 MG TABLET PO PRN (19:52)
[2019-08-11] MEDS: SIMVASTATIN 10 MG TABLET PO SCH (21:51)
[2019-08-11] MEDS: FAMOTIDINE 20 MG TABLET PO SCH (21:51)
[2019-08-12] MEDS: CARVEDILOL 12.5 MG TABLET PO SCH ×3 (00:07→21:16)
[2019-08-12] MEDS: GABAPENTIN 300 MG CAPSULE PO SCH ×4 (00:07→17:19)
[2019-08-12] MEDS: HEPARIN SOD (PORCINE) 5,000 UNIT/ML 1 ML VIAL SUBCUT SCH ×3 (05:43→21:17)
[2019-08-12 06:07] LABS: ABSOLUTE EOSINOPHILS # (AUTO) 0.2 10^3/uL (0.0-0.6); ABSOLUTE LYMPHOCYTES (AUTO) 2.2 10^3/uL (0.5-4.7); ABSOLUTE MONOCYTES (AUTO) 0.5 10^3/uL (0.1-1.4); ABSOLUTE NEUT (AUTO) 1.8 10^3/uL (1.7-8.2); BASOPHILS % (AUTO) 0.2 % (0-2); EOSINOPHILS % (AUTO) 4.7 % (0-6); HEMATOCRIT 24.3 % (36.0-47.0); HEMOGLOBIN 8.5 g/dL (12.0-15.5); LYMPHOCYTES % (AUTO) 46.7 % (13-45); MEAN CORPUSCULAR HEMOGLOBIN 36.9 pg (27.0-33.4); MEAN CORPUSCULAR HGB CONC 34.7 g/dL (32.0-36.0); MEAN CORPUSCULAR VOLUME 106 fl (80-97); MONOCYTES % (AUTO) 10.2 % (3-13); PLATELET COUNT 137 10^3/uL (150-450); RED BLOOD COUNT 2.29 10^6/uL (3.72-5.28); RED CELL DISTRIBUTION WIDTH 13.1 % (11.5-14.0); SEGMENTED NEUTROPHILS % (AUTO) 38.2 % (42-78); TOTAL CELLS COUNTED % (AUTO) 100 %; WHITE BLOOD COUNT 4.8 10^3/uL (4.0-10.5)
[2019-08-12 06:28] LABS: ALBUMIN 2.9 g/dL (3.5-5.0); ALKALINE PHOSPHATASE 69 U/L (38-126); ANION GAP 7 (5-19); ASPARTATE AMINO TRANSFERASE 22 U/L (14-36); BILIRUBIN,DIRECT 0.1 mg/dL (0.0-0.4); BILIRUBIN,TOTAL 0.4 mg/dL (0.2-1.3); BLOOD UREA NITROGEN 33 mg/dL (7-20); CALCIUM 8.8 mg/dL (8.4-10.2); CARBON DIOXIDE 31 mmol/L (22-30); CHLORIDE 103 mmol/L (98-107); GLUCOSE 95 mg/dL (75-110); POTASSIUM 3.6 mmol/L (3.6-5.0); TOTAL PROTEIN 5.5 g/dL (6.3-8.2)
[2019-08-12] MEDS: DOCUSATE SODIUM 100 MG CAPSULE PO SCH ×2 (08:59→17:16)
[2019-08-12] MEDS: TRIAMCINOLONE ACETONIDE 0.1% OINT 15 GM TP SCH ×2 (09:02→21:16)
[2019-08-12] MEDS: CALCIUM CARBONATE 250 MG/VITAMIN D3 125 UNIT TABLET PO SCH ×2 (09:03→17:19)
[2019-08-12] MEDS: FOLIC ACID 1 MG TABLET PO SCH (09:03)
[2019-08-12] MEDS: FERROUS SULFATE 325 MG TABLET PO SCH (09:03)
[2019-08-12] MEDS: FUROSEMIDE 40 MG TABLET PO SCH (09:03)
[2019-08-12] MEDS: DULOXETINE HCL 30 MG CAPSULE.DR PO SCH (09:03)
[2019-08-12] MEDS: MAGNESIUM OXIDE 400 MG TABLET PO SCH (09:03)
[2019-08-12] MEDS: ALLOPURINOL 100 MG TABLET PO SCH ×2 (09:03→21:16)
[2019-08-12] MEDS: OXYCODONE-ACETAMINOPHEN 5-325 MG TABLET PO PRN ×2 (10:02→17:19)
--- NOTE | 2019-08-12 11:30 | PDOC PROGRESS REPORT ---
Subjective Progress Note for:: 08/11/19 Subjective:: MARILU RIZO is a 79 year old female past medical history of CKD, DJD, rheumatoid arthritis, hypertension, chronic diarrhea and recent rhabdomyolysis for which she was hospitalized at [facility] and was transferred to [place] [facility] where she stayed for 3 weeks and was sent home recently. Patient is brought to ED by her family for evaluation of slurred speech and al tered mental status after a mechanical fall. Patient had a fall on Friday, when she was using her walker she twisted her ankle and fell backwards, did not sustain any head trauma, did not lose consc iousness, fall was witnessed by her son who is at the bedside who states that he did not notice any convulsions. She denies any lightheadedness or palpitation prior to the fall. Patient was taken to an urgent care where they did x-ray of her ankle which did not show any acute abnormalities and patient was sent home. Since the fall patient family have noticed that patient's speech seems slurred at times and she seems confused. Patient herself is very pleasant, stating that she feels like her tongue gets heavier once a while, otherwise denies any focal neurological deficits, she is alert oriented x4, very pleasant and gives very accurate information about her history of present illness and past medical history. CT, ankle x-ray, pelvic x-ray all negative for any acute abnormalities. CP positive for NICK/CKD. Hospitalist consulted for admission. 08/11/2018. No acute events overnight. No recurrence of fall, patient has been receiving physical therapy. Renal function is improved. Denies any fever, chills, nausea, vomiting, diarrhea, constipation or any urinary symptoms. Reason For Visit: ACUTE RENAL FAILURE Physical Exam Vital Signs: Temp Pulse Resp BP Pulse Ox 97.4 F 57 L 18 121/55 L 97 08/12/19 00:03 08/12/19 07:00 08/12/19 04:30 08/12/19 00:03 08/12/19 04:30 Intake & Output 08/11/19 08/12/19 08/13/19 06:59 06:59 06:59 Intake Total 1400 3020 1000 Balance 1400 3020 1000 Weight 88.451 kg 78.9 kg General appearance: PRESENT: no acute distress, obese, well-developed, well- nourished Respiratory exam: PRESENT: clear to auscultation chrissy. ABSENT: rales, rhonchi, wheezes Cardiovascular exam: PRESENT: RRR. ABSENT: diastolic murmur, rubs, systolic murmur GI/Abdominal exam: PRESENT: normal bowel sounds, soft. ABSENT: distended, guarding, mass, organolmegaly, rebound, tenderness Extremities exam: PRESENT: full ROM. ABSENT: calf tenderness, clubbing, pedal edema Neurological exam: PRESENT: alert, awake, oriented to person, oriented to place, oriented to time, oriented to situation, CN II-XII grossly intact. ABSENT: motor sensory deficit Results Laboratory Results: 08/12/19 04:19 08/12/19 04:19 08/12/19 08/12/19 04:19 04:19 WBC 4.8 RBC 2.29 L Hgb 8.5 L Hct 24.3 L MCV 106 H MCH 36.9 H MCHC 34.7 RDW 13.1 Plt Count 137 L Seg Neutrophils % 38.2 L Sodium 140.6 Potassium 3.6 Chloride 103 Carbon Dioxide 31 H Anion Gap 7 BUN 33 H Creatinine 1.58 H Est GFR ( Amer) 38 L Glucose 95 Calcium 8.8 Total Bilirubin 0.4 AST 22 Alkaline Phosphatase 69 Total Protein 5.5 L Albumin 2.9 L 08/10/19 08/10/19 12:10 12:10 Creatine Kinase 423 H CK-MB (CK-2) 7.08 H Troponin I < 0.012 Impressions: Chest X-Ray 08/10/19 11:11 IMPRESSION: Low inspiratory lung volumes and left basilar atelectasis. Head CT 08/10/19 11:11 IMPRESSION: MILD CHRONIC MICROVASCULAR ISCHEMIA. NO ACUTE IMAGING FINDINGS IN THE BRAIN. EVIDENCE OF ACUTE STROKE: NO. Ankle X-Ray 08/10/19 13:35 IMPRESSION: No acute osseous abnormality of the left foot. Hip/Pelvis X-Ray 08/10/19 13:35 IMPRESSION: 1. Uncomplicated left MARIE. 2. No acute osseous abnormality of the right hip. Assessment and Plan - Diagnosis (1) Acute kidney injury superimposed on CKD Is this a current diagnosis for this admission?: Yes Plan: Multifactorial. Improving creatinine 1.94 down from 2.8 on admission. Baseline creatinine 2.3. Likely due to low p.o. intake since fall as well as history of chronic NSAID and PPI intake. Continue to telemetry, monitor volume status, avoid nephrotoxic meds, cautious volume resuscitation guided by volume status. CMP tomorrow. (2) History of rheumatoid arthritis Is this a current diagnosis for this admission?: Yes Plan: Not on acute flare. Home meds are methotrexate, folic acid. Restart home meds. Monitor WBC. Outpatient PCP and rheumatology follow-up. (3) Depression Is this a current diagnosis for this admission?: Yes Plan: Denies any suicidal or homicidal ideation. Restart home meds. Outpatient PCP and psychiatry follow-up. (4) Chronic diarrhea Is this a current diagnosis for this admission?: Yes Plan: Takes antidiarrheal chronically. Resume home meds. Monitor volume status and electrolytes. (5) Accidental fall Qualifiers: Encounter type: initial encounter Qualified Code(s): W19.XXXA - Unspecified fall, initial encounter Is this a current diagnosis for this admission?: Yes Plan: CT head, pelvis x-ray and ankle x-ray negative for any acute abnormalities. Fall precautions, seizure precautions, PT. (6) Hypertension Is this a current diagnosis for this admission?: Yes Plan: Euvolemic. SBP 941 25. Asymptomatic. Home meds are Lasix 60 mg p.o. daily, carvedilol 25 mg p.o. twice daily, telmisartan 80 mg p.o. daily. Continue carvedilol 25 mg p.o. twice daily, Lasix 60 mg p.o. daily. PRN hydralazine and metoprolol. Hold telmisartan. Restart once creatinine level stable.
--- NOTE | 2019-08-12 14:48 | RADIOLOGY REPORT (SQ) ---
EXAM DESCRIPTION: CHEST SINGLE VIEW COMPLETED DATE/TIME: 08/12/2019 2:39 pm REASON FOR STUDY: Rule out TB COMPARISON: 08/10/2019 EXAM PARAMETERS: NUMBER OF VIEWS: One view. TECHNIQUE: Single frontal radiographic view of the chest acquired. RADIATION DOSE: NA LIMITATIONS: None. FINDINGS: LUNGS AND PLEURA: Linear atelectasis in the left base. Stable elevation of left hemidiaph ragm. No pneumothorax. MEDIASTINUM AND HILAR STRUCTURES: No masses. Contour normal. HEART AND VASCULAR STRUCTURES: Heart normal in size. Normal vasculature. BONES: No acute findings. HARDWARE: None in the chest. OTHER: No other significant finding. IMPRESSION: Linear atelectasis in the left base. No other significant findings. TECHNICAL DOCUMENTATION: JOB ID: [id number] [employer]- All Rights Reserved Reading location - IP/workstation name: [email or web address]
--- NOTE | 2019-08-12 14:55 | PDOC TRANSFER SUMMARY ---
General Admission Date/PCP: 08/10/19 14:57 TERRANCE MARINELLI MD Resuscitation Status: Full Code - Transfer Diagnosis (1) Acute kidney injury superimposed on CKD Is this a current diagnosis for this admission?: Yes (2) History of rheumatoid arthritis Is this a current diagnosis for this admission?: Yes (3) Depression Is this a current diagnosis for this admission?: Yes (4) Chronic diarrhea Is this a current diagnosis for this admission?: Yes (5) Accidental fall Is this a current diagnosis for this admission?: Yes (6) Hypertension Is this a current diagnosis for this admission?: Yes (7) Anemia in CKD (chronic kidney disease) Is this a current diagnosis for this admission?: Yes - Transfer Medications Home Medications: Allopurinol [Zyloprim 100 mg Tablet] 200 mg PO BID 08/10/19 Betamethasone Dipropionate [Betamethasone Dipropionate Ointment] 1 applic TP BID 08/10/19 Calcium Carbonate/Vitamin D3 [Calcium 600 + Vit D Tablet] 1 tab PO BID 08/10/19 Carvedilol [Coreg 25 mg Tablet] 25 mg PO Q12 08/10/19 Cetirizine HCl [Zyrtec] 10 mg PO DAILYP PRN 08/10/19 Cyclosporine 0.05% Oph Emulsio [Restasis 0.05% Oph Emulsion Pf 0.4 ml] 1 drop OU BID 08/10/19 Duloxetine HCl [Cymbalta] 60 mg PO DAILY 08/10/19 Ergocalciferol (Vitamin D2) [Drisdol 50,000 unit (1.25MG) Capsule] 50,000 unit PO SA@1000 08/10/19 Ferrous Sulfate [Feosol 325 mg Tablet] 325 mg PO DAILY 08/10/19 Folic Acid [Folvite 1 mg Tablet] 2 mg PO DAILY 08/10/19 Gabapentin [Neurontin 300 mg Capsule] 300 mg PO QID 08/10/19 Loperamide HCl [Loperamide] 4 mg PO DAILYP PRN 08/10/19 Magnesium Oxide [Mag-Ox 400 mg Tablet] 400 mg PO DAILY 08/10/19 Methotrexate Sodium [Rheumatrex 2.5 mg Tablet] 10 mg PO SA@1000 08/10/19 Oxycodone HCl/Acetaminophen [Percocet 10-325 mg Tablet] 1 each PO Q6HP PRN 08/10/19 Simvastatin 20 mg PO QHS 08/10/19 Triamcinolone Acetonide [Aristocort 0.1% Ointment] 1 applic TP BID 08/10/19 Transfer Medications: Current Medications Acetaminophen (Tylenol 325 Mg Tablet) 325 mg PO Q4HP PRN PRN Reason: FEVER >101 Stop: 09/09/19 15:05 Last Admin: 08/10/19 21:03 Dose: 325 mg Documented by: Albuterol/Ipratropium (Duoneb 3 Ml Ampul) 3 ml NEB RTQ6HP PRN PRN Reason: SHORTNESS OF BREATH Stop: 09/09/19 15:05 Allopurinol (Zyloprim 100 Mg Tablet) 200 mg PO Q12 DON Stop: 09/09/19 21:59 Last Admin: 08/12/19 09:03 Dose: 200 mg Documented by: Calcium Carbonate (Os-Tyson 250 Mg With Vitamin D 125 Units) 2 tab PO BID DON Stop: 09/09/19 17:59 Last Admin: 08/12/19 09:03 Dose: 2 tab Documented by: Carvedilol (Coreg 12.5 Mg Tablet) 25 mg PO Q12 DON Stop: 09/09/19 21:59 Last Admin: 08/12/19 09:02 Dose: 25 mg Documented by: Cetirizine HCl (Zyrtec 10 Mg Tablet) 10 mg PO DAILYP PRN PRN Reason: FOR ALLERGIES Stop: 09/09/19 16:06 Last Admin: 08/11/19 19:51 Dose: 10 mg Documented by: Docusate Sodium (Colace 100 Mg Capsule) 100 mg PO BID [facility] Stop: 09/09/19 17:59 Last Admin: 08/12/19 08:59 Dose: Not Given Documented by: Duloxetine HCl (Cymbalta 30 Mg Capsule.Dr) 60 mg PO DAILY DON Stop: 09/10/19 09:59 Last Admin: 08/12/19 09:03 Dose: 60 mg Documented by: Ergocalciferol (Drisdol 50,000 Unit (1.25mg) Capsule) 50,000 unit PO SA@1000 [facility] Stop: 09/13/19 09:59 Famotidine (Pepcid 20 Mg Tablet) 20 mg PO QHS DON Stop: 09/09/19 21:59 Last Admin: 08/11/19 21:51 Dose: 20 mg Documented by: Ferrous Sulfate (Feosol 325 Mg Tablet) 325 mg PO DAILY [facility] Stop: 09/10/19 09:59 Last Admin: 08/12/19 09:03 Dose: 325 mg Documented by: Folic Acid (Folvite 1 Mg Tablet) 2 mg PO DAILY DON Stop: 09/10/19 09:59 Last Admin: 08/12/19 09:03 Dose: 2 mg Documented by: Furosemide (Lasix 40 Mg Tablet) 40 mg PO DAILY [facility] Stop: 09/11/19 09:59 Last Admin: 08/12/19 09:03 Dose: 40 mg Documented by: Gabapentin (Neurontin 300 Mg Capsule) 300 mg PO Q6 [facility] Stop: 09/09/19 17:59 Last Admin: 08/12/19 12:56 Dose: 300 mg Documented by: Heparin Sodium (Porcine) (Heparin Inj 5,000 Units/Ml 1 Ml Vial) 5,000 unit SUBCUT Q8 [facility] Stop: 09/09/19 21:59 Last Admin: 08/12/19 12:59 Dose: Not Given Documented by: Hydralazine HCl (Apresoline Inj/Pf 20 Mg/1 Ml Sdv) 10 mg IV Q3HP PRN PRN Reason: Give For Sbp > [150] Stop: 09/09/19 16:02 Loperamide HCl (Imodium 2 Mg Capsule) 4 mg PO DAILYP PRN PRN Reason: FOR DIARRHEA Stop: 09/09/19 16:04 Last Admin: 08/11/19 14:34 Dose: 4 mg Documented by: Magnesium Oxide (Mag-Ox 400 Mg Tablet) 400 mg PO DAILY [facility] Stop: 09/10/19 09:59 Last Admin: 08/12/19 09:03 Dose: 400 mg Documented by: Methotrexate (Rheumatrex 2.5 Mg Tablet) 10 mg PO SA@1000 [facility] Stop: 09/13/19 09:59 Ondansetron HCl (Zofran Inj/Pf 4 Mg/2 Ml Sdv) 4 mg IV Q4HP PRN PRN Reason: FOR NAUSEA/VOMITING Stop: 09/09/19 15:05 Oxycodone HCl (Oxy-Ir 5 Mg Tablet) 5 mg PO Q6HP PRN PRN Reason: FOR PAIN Stop: 08/17/19 16:03 Oxycodone/Acetaminophen (Percocet 5-325 Mg Tablet) 1 tab PO Q6HP PRN PRN Reason: FOR PAIN Stop: 08/17/19 16:02 Last Admin: 08/12/19 10:02 Dose: 1 tab Documented by: Patient Own Medication (Betamethasone Dipropionate [Betamethasone Dipropionate Ointment]) 1 applic TOP .BID DON Stop: 09/09/19 17:59 Promethazine HCl (Phenergan Inj 25 Mg/1 Ml Vial) 6.25 mg IV Q4HP PRN PRN Reason: FOR NAUSEA/VOMITING Stop: 09/09/19 15:05 Simvastatin (Zocor 10 Mg Tablet) 20 mg PO QHS DON Stop: 09/09/19 21:59 Last Admin: 08/11/19 21:51 Dose: 20 mg Documented by: Temazepam (Restoril 15 Mg Capsule) 15 mg PO HSP PRN PRN Reason: SLEEP OR INSOMNIA Stop: 08/17/19 15:05 Triamcinolone Acetonide (Aristocort 0.1% Ointment 15 Gm) 1 applic TP Q12 DON Stop: 09/09/19 21:59 Last Admin: 08/12/19 09:02 Dose: 1 gm Documented by: - Allergies Allergies/Adverse Reactions: hydroxychloroquine sulfate [From Plaquenil] Allergy (Mild, Verified 03/11/18 11:34) Generalized Itching Sulfa (Sulfonamide Antibiotics) Allergy (Mild, Verified 03/11/18 11:34) Unknown reaction TAPE Allergy (Mild, Uncoded 04/08/11 11:03) Blisters Hospital Course Hospital Course: MARILU RIZO is a 79 year old female past medical history of CKD, DJD, rheumatoid arthritis, hypertension, chronic diarrhea and recent rhabdomyolysis for which she was hospitalized at [facility] and was transferred to [facility] where she stayed for 3 weeks and was sent home recently. Patient is brought to ED by her family for evaluation of slurred speech and altered mental status after a mechanical fall. Patient had a fall on Friday, when she was using her walker she twisted her ankle and fell backwards, did not sustain any head trauma, did not lose consciousness, fall was witnessed by her son who is at the bedside who states that he did not notice any convulsions. She denies any lightheadedness or palpitation prior to the fall. Patient was taken to an urgent care where they did x-ray of her ankle which did not show any acute abnormalities and patient was sent home. Since the fall patient family have noticed that patient's speech seems slurred at times and she seems confused. Patient herself is very pleasant, stating that she feels like her tongue gets heavier once a while, otherwise denies any focal neurological deficits, she is alert oriented x4, very pleasant and gives very accurate information about her history of present illness and past medical history. CT, ankle x-ray, pelvic x-ray all negative for any acute abnormalities. CP positive for NICK/CKD. Hospitalist consulted for admission. (1) Acute kidney injury superimposed on CKD Multifactorial. Significant improvement. Back to baseline. This was likely due to due to low p.o. intake since fall as well as history of chronic NSAID and PPI intake. Patient was admitted to telemetry with cautious volume resuscitation, vitals and volume status monitored and avoiding nephrotoxic meds. Patient does not have any horse rancher. Appointment has been made for her to follow-up with Dr. Anil Harper horse rancher as outpatient. Patient has been extensively advised on avoiding nephrotoxic meds in the future. (2) History of rheumatoid arthritis Not on acute flare. Home meds are methotrexate, folic acid. Started on home meds. WBC WNL. Outpatient PCP and rheumatology follow-up. (3) Depression Denies any suicidal or homicidal ideation. Was restarted on home meds. Outpatient PCP and psychiatry follow-up. (4) Chronic diarrhea Does not seem to be infectious diarrhea. WBC WNL no sign of systemic infection. Takes antidiarrheal chronically. Restarted on home meds. Patient has not been evaluated by gastroenterology. No gastroenterology consult available until next Friday. Continue plantar potassium and magnesium with close monitoring given history of CKD. Outpatient gastroenterology follow-up for further work-up. (5) Accidental fall CT head, pelvis x-ray and ankle x-ray negative for any acute abnormalities. Fall and seizure precautions were instituted. PT OT consulted. (6) Hypertension Euvolemic. SBP 941 25. Asymptomatic. Home meds are Lasix 60 mg p.o. daily, carvedilol 25 mg p.o. twice daily, telmisartan 80 mg p.o. daily. Started carvedilol 25 mg p.o. twice daily. Restarted Lasix 40 mg p.o. daily. Telmisartan held due to NICK/CKD. Patient noted to have soft BPs however asymptomatic. Lasix held for 08/12/2019. Patient has an appointment with nephrology as outpatient. Please hold telmisartan and Lasix until seen and evaluated by nephrology and PCP. (7) Anemia in CKD (chronic kidney disease) Denies any nosebleeds, hematemesis, hemoptysis, easy bruising, melena, hematochezia. Iron panel suggestive of anemia of chronic disease likely due to CKD and RA. B12 and folic acid WNL. Iron supplement at home. Restarted on Rocephin. Outpatient nephrology follow-up. Patient may need Procrit infusion in the future. Physical Exam Vital Signs: Temp Pulse Resp BP Pulse Ox 97.2 F 63 16 102/41 L 99 08/12/19 12:13 08/12/19 13:59 08/12/19 13:59 08/12/19 12:13 08/12/19 13:59 Intake & Output 08/11/19 08/12/19 08/13/19 06:59 06:59 06:59 Intake Total 1400 3020 1480 Balance 1400 3020 1480 Weight 88.451 kg 78.9 kg General appearance: PRESENT: no acute distress, well-developed, well-nourished Respiratory exam: PRESENT: clear to auscultation chrissy. ABSENT: rales, rhonchi, wheezes Cardiovascular exam: PRESENT: RRR. ABSENT: diastolic murmur, rubs, systolic murmur GI/Abdominal exam: PRESENT: normal bowel sounds, soft. ABSENT: distended, guarding, mass, organolmegaly, rebound, tenderness Extremities exam: PRESENT: full ROM. ABSENT: calf tenderness, clubbing, pedal edema Neurological exam: PRESENT: alert, awake, oriented to person, oriented to place, oriented to time, oriented to situation, CN II-XII grossly intact. ABSENT: m otor sensory deficit Results Laboratory Results: 08/12/19 04:19 08/12/19 04:19 08/12/19 08/12/19 04:19 04:19 WBC 4.8 RBC 2.29 L Hgb 8.5 L Hct 24.3 L MCV 106 H MCH 36.9 H MCHC 34.7 RDW 13.1 Plt Count 137 L Seg Neutrophils % 38.2 L Sodium 140.6 Potassium 3.6 Chloride 103 Carbon Dioxide 31 H Anion Gap 7 BUN 33 H Creatinine 1.58 H Est GFR ( Amer) 38 L Glucose 95 Calcium 8.8 Total Bilirubin 0.4 AST 22 Alkaline Phosphatase 69 Total Protein 5.5 L Albumin 2.9 L 08/10/19 08/10/19 12:10 12:10 Creatine Kinase 423 H CK-MB (CK-2) 7.08 H Troponin I < 0.012 Impressions: Head CT 08/10/19 11:11 IMPRESSION: MILD CHRONIC MICROVASCULAR ISCHEMIA. NO ACUTE IMAGING FINDINGS IN THE BRAIN. EVIDENCE OF ACUTE STROKE: NO. Ankle X-Ray 08/10/19 13:35 IMPRESSION: No acute osseous abnormality of the left foot. Hip/Pelvis X-Ray 08/10/19 13:35 IMPRESSION: 1. Uncomplicated left MARIE. 2. No acute osseous abnormality of the right hip. Chest X-Ray 08/12/19 00:00 IMPRESSION: Linear atelectasis in the left base. No other significant findings.
[2019-08-12] MEDS: FAMOTIDINE 20 MG TABLET PO SCH (21:16)
[2019-08-12] MEDS: SIMVASTATIN 10 MG TABLET PO SCH (21:16)
[2019-08-13] MEDS: GABAPENTIN 300 MG CAPSULE PO SCH ×3 (00:04→12:00)
[2019-08-13] MEDS: HEPARIN SOD (PORCINE) 5,000 UNIT/ML 1 ML VIAL SUBCUT SCH (06:03)
[2019-08-13 06:27] LABS: ABSOLUTE EOSINOPHILS # (AUTO) 0.3 10^3/uL (0.0-0.6); ABSOLUTE LYMPHOCYTES (AUTO) 2.5 10^3/uL (0.5-4.7); ABSOLUTE MONOCYTES (AUTO) 0.5 10^3/uL (0.1-1.4); ABSOLUTE NEUT (AUTO) 1.7 10^3/uL (1.7-8.2); BASOPHILS % (AUTO) 0.7 % (0-2); EOSINOPHILS % (AUTO) 5.9 % (0-6); HEMATOCRIT 25.5 % (36.0-47.0); HEMOGLOBIN 8.6 g/dL (12.0-15.5); LYMPHOCYTES % (AUTO) 49.7 % (13-45); MEAN CORPUSCULAR HGB CONC 33.8 g/dL (32.0-36.0); MEAN CORPUSCULAR VOLUME 107 fl (80-97); MONOCYTES % (AUTO) 9.1 % (3-13); PLATELET COUNT 164 10^3/uL (150-450); RED BLOOD COUNT 2.39 10^6/uL (3.72-5.28); RED CELL DISTRIBUTION WIDTH 13.3 % (11.5-14.0); SEGMENTED NEUTROPHILS % (AUTO) 34.6 % (42-78); TOTAL CELLS COUNTED % (AUTO) 100 %
[2019-08-13 06:51] LABS: ALBUMIN 3.1 g/dL (3.5-5.0); ALKALINE PHOSPHATASE 68 U/L (38-126); ANION GAP 5 (5-19); ASPARTATE AMINO TRANSFERASE 20 U/L (14-36); BILIRUBIN,DIRECT 0.1 mg/dL (0.0-0.4); BILIRUBIN,TOTAL 0.4 mg/dL (0.2-1.3); BLOOD UREA NITROGEN 27 mg/dL (7-20); CALCIUM 8.8 mg/dL (8.4-10.2); CARBON DIOXIDE 33 mmol/L (22-30); CHLORIDE 100 mmol/L (98-107); GLUCOSE 93 mg/dL (75-110); POTASSIUM 3.8 mmol/L (3.6-5.0); TOTAL PROTEIN 5.8 g/dL (6.3-8.2)
[2019-08-13] MEDS: CETIRIZINE 10 MG TABLET PO PRN (07:57)
[2019-08-13] MEDS: OXYCODONE-ACETAMINOPHEN 5-325 MG TABLET PO PRN (07:57)
[2019-08-13] MEDS ORDERED: GUAIFENESIN 600 MG TABLET.SA PO SCH (10:00)
[2019-08-13] MEDS: FOLIC ACID 1 MG TABLET PO SCH (10:28)
[2019-08-13] MEDS: MAGNESIUM OXIDE 400 MG TABLET PO SCH (10:28)
[2019-08-13] MEDS: CARVEDILOL 12.5 MG TABLET PO SCH (10:28)
[2019-08-13] MEDS: FUROSEMIDE 40 MG TABLET PO SCH (10:28)
[2019-08-13] MEDS: DOCUSATE SODIUM 100 MG CAPSULE PO SCH (10:28)
[2019-08-13] MEDS: CALCIUM CARBONATE 250 MG/VITAMIN D3 125 UNIT TABLET PO SCH (10:29)
[2019-08-13] MEDS: DULOXETINE HCL 30 MG CAPSULE.DR PO SCH (10:29)
[2019-08-13] MEDS: ALLOPURINOL 100 MG TABLET PO SCH (10:29)
[2019-08-13] MEDS: FERROUS SULFATE 325 MG TABLET PO SCH (10:29)
[2019-08-13] MEDS: TRIAMCINOLONE ACETONIDE 0.1% OINT 15 GM TP SCH (11:07)
--- NOTE | 2019-08-13 13:24 | PDOC DISCHARGE SUMMARY ---
Impression - Admit/DC Date/PCP Admission Date/Primary Care Provider: 08/10/19 14:57 TERRANCE MARINELLI MD Discharge Date: 08/13/19 - Discharge Diagnosis (1) Acute kidney injury superimposed on CKD Is this a current diagnosis for this admission?: Yes (2) History of rheumatoid arthritis Is this a current diagnosis for this admission?: Yes (3) Depression Is this a current diagnosis for this admission?: Yes (4) Chronic diarrhea Is this a current diagnosis for this admission?: Yes (5) Accidental fall Is this a current diagnosis for this admission?: Yes (6) Hypertension Is this a current diagnosis for this admission?: Yes (7) Anemia in CKD (chronic kidney disease) Is this a current diagnosis for this admission?: Yes - Additional Information Resuscitation Status: Full Code Referrals: TERRANCE MARINELLI MD [Primary Care Provider] - 08/20/19 9:00 am (WITH JAE KENNEDY) Prescriptions: Famotidine [Acid Controller] 20 mg PO BID 30 Days #60 tablet Home Medications: Allopurinol [Zyloprim 100 mg Tablet] 200 mg PO BID 08/10/19 Betamethasone Dipropionate [Betamethasone Dipropionate Ointment] 1 applic TP BID 08/10/19 Calcium Carbonate/Vitamin D3 [Calcium 600 + Vit D Tablet] 1 tab PO BID 08/10/19 Carvedilol [Coreg 25 mg Tablet] 25 mg PO Q12 08/10/19 Cetirizine HCl [Zyrtec] 10 mg PO DAILYP PRN 08/10/19 Cyclosporine 0.05% Oph Emulsio [Restasis 0.05% Oph Emulsion Pf 0.4 ml] 1 drop OU BID 08/10/19 Duloxetine HCl [Cymbalta] 60 mg PO DAILY 08/10/19 Ergocalciferol (Vitamin D2) [Drisdol 50,000 unit (1.25MG) Capsule] 50,000 unit PO SA@1000 08/10/19 Ferrous Sulfate [Feosol 325 mg Tablet] 325 mg PO DAILY 08/10/19 Folic Acid [Folvite 1 mg Tablet] 2 mg PO DAILY 08/10/19 Gabapentin [Neurontin 300 mg Capsule] 300 mg PO QID 08/10/19 Loperamide HCl [Loperamide] 4 mg PO DAILYP PRN 08/10/19 Magnesium Oxide [Mag-Ox 400 mg Tablet] 400 mg PO DAILY 08/10/19 Methotrexate Sodium [Rheumatrex 2.5 mg Tablet] 10 mg PO SA@1000 08/10/19 Oxycodone HCl/Acetaminophen [Percocet 10-325 mg Tablet] 1 each PO Q6HP PRN 08/10/19 Simvastatin 20 mg PO QHS 08/10/19 Triamcinolone Acetonide [Aristocort 0.1% Ointment] 1 applic TP BID 08/10/19 Famotidine [Acid Controller] 20 mg PO BID 30 Days #60 tablet 08/12/19 History of Present Illiness History of Present Illness: MARILU RIZO is a 79 year old female past medical history of CKD, DJD, rheumatoid arthritis, hypertension, chronic diarrhea and recent rhabdomyolysis for which she was hospitalized at [facility] and was transferred to [place] [facility] where she stayed for 3 weeks and was sent home recently. Patient is brought to ED by her family for evaluation of slurred speech and altered mental status after a mechanical fall. Patient had a fall on Friday, when she was using her walker she twisted her ankle and fell backwards, did not sustain any head trauma, did not lose consciousness, fall was witnessed by her son who is at the bedside who states that he did not notice any convulsions. She denies any lightheadedness or palpitation prior to the fall. Patient was taken to an urgent care where they did x-ray of her ankle which did not show any acute abnormalities and patient was sent home. Since the fall patient family have noticed that patient's speech seems slurred at times and she seems confused. Patient herself is very pleasant, stating that she feels like her tongue gets heavier once a while, otherwise denies any focal neurological deficits, she is alert oriented x4, very pleasant and gives very accurate information about her history of present illness and past medical history. CT, ankle x-ray, pelvic x-ray all negative for any acute abnormalities. CP positive for NICK/CKD. Hospitalist consulted for admission. Hospital Course Hospital Course: (1) Acute kidney injury superimposed on CKD Multifactorial. Significant improvement. Back to baseline. This was likely due to due to low p.o. intake since fall as well as history of chronic NSAID and PPI intake. Patient was admitted to telemetry with cautious volume resuscitation, vitals and volume status monitored and avoiding nephrotoxic meds. Patient does not have any engine assembly supervisor. Appointment has been made for her to follow-up with Dr. Anil Harper engine assembly supervisor as outpatient. Patient has been extensively advised on avoiding nephrotoxic meds in the future. (2) History of rheumatoid arthritis Not on acute flare. Home meds are methotrexate, folic acid. Started on home meds. WBC WNL. Outpatient PCP and rheumatology follow-up. (3) Depression Denies any suicidal or homicidal ideation. Was restarted on home meds. Outpatient PCP and psychiatry follow-up. (4) Chronic diarrhea Does not seem to be infectious diarrhea. WBC WNL no sign of systemic infection. Takes antidiarrheal chronically. Restarted on home meds. Patient has not been evaluated by gastroenterology. No gastroenterology consult available until next Friday. Continue plantar potassium and magnesium with close monitoring given history of CKD. Outpatient gastroenterology follow-up for further work-up. (5) Accidental fall CT head, pelvis x-ray and ankle x-ray negative for any acute abnormalities. Fall and seizure precautions were instituted. PT OT consulted. (6) Hypertension Euvolemic. SBP 941 25. Asymptomatic. Home meds are Lasix 60 mg p.o. daily, carvedilol 25 mg p.o. twice daily, telmisartan 80 mg p.o. daily. Started carvedilol 25 mg p.o. twice daily. Restarted Lasix 40 mg p.o. daily. Telmisartan held due to NICK/CKD. Patient noted to have soft BPs however asymptomatic. Lasix held for 08/12/2019. Patient has an appointment with nephrology as outpatient. Please hold telm isartan and Lasix until seen and evaluated by nephrology and PCP. (7) Anemia in CKD (chronic kidney disease) Denies any nosebleeds, hematemesis, hemoptysis, easy bruising, melena, hematochezia. Iron panel suggestive of anemia of chronic disease likely due to CKD and RA. B12 and folic acid WNL. Iron supplement at home. Restarted on Rocephin. Outpatient nephrology follow-up. Patient may need Procrit infusion in the future. Physical Exam Vital Signs: Temp Pulse Resp BP Pulse Ox 98.3 F 76 18 124/60 95 08/13/19 07:44 08/13/19 07:44 08/13/19 07:44 08/13/19 07:44 08/13/19 07:44 Intake & Output 08/12/19 08/13/19 08/14/19 06:59 06:59 06:59 Intake Total 3020 1720 Balance 3020 1720 Weight 78.9 kg 78 kg General appearance: PRESENT: obese Head exam: PRESENT: atraumatic, normocephalic Respiratory exam: PRESENT: clear to auscultation chrissy. ABSENT: rales, rhonchi, wheezes Cardiovascular exam: PRESENT: RRR. ABSENT: diastolic murmur, rubs, systolic murmur GI/Abdominal exam: PRESENT: normal bowel sounds, soft. ABSENT: distended, guarding, mass, organolmegaly, rebound, tenderness Neurological exam: PRESENT: alert, awake, oriented to person, oriented to place, oriented to time, oriented to situation, CN II-XII grossly intact. ABSENT: motor sensory deficit Results Laboratory Results: WBC 5.0 10^3/uL (4.0-10.5) 08/13/19 05:25 RBC 2.39 10^6/uL (3.72-5.28) L 08/13/19 05:25 Hgb 8.6 g/dL (12.0-15.5) L 08/13/19 05:25 Hct 25.5 % (36.0-47.0) L 08/13/19 05:25 MCV 107 fl (80-97) H 08/13/19 05:25 MCH 36.0 pg (27.0-33.4) H 08/13/19 05:25 MCHC 33.8 g/dL (32.0-36.0) 08/13/19 05:25 RDW 13.3 % (11.5-14.0) 08/13/19 05:25 Plt Count 164 10^3/uL (150-450) 08/13/19 05:25 Lymph % (Auto) 49.7 % (13-45) H 08/13/19 05:25 [place] % (Auto) 9.1 % (3-13) 08/13/19 05:25 Eos % (Auto) 5.9 % (0-6) 08/13/19 05:25 Baso % (Auto) 0.7 % (0-2) 08/13/19 05:25 Reticulocyte # 0.026 10^6/uL (0.028-0.122) L 08/10/19 12:10 Absolute Neuts (auto) 1.7 10^3/uL (1.7-8.2) 08/13/19 05:25 Absolute Lymphs (auto) 2.5 10^3/uL (0.5-4.7) 08/13/19 05:25 Absolute Monos (auto) 0.5 10^3/uL (0.1-1.4) 08/13/19 05:25 Absolute Eos (auto) 0.3 10^3/uL (0.0-0.6) 08/13/19 05:25 Absolute Basos (auto) 0.0 10^3/uL (0.0-0.2) 08/13/19 05:25 Seg Neutrophils % 34.6 % (42-78) L 08/13/19 05:25 Retic Count (auto) 1.00 % (0.66-2.85) 08/10/19 12:10 PT 15.8 SEC (11.4-15.4) H 08/10/19 12:10 INR 1.25 08/10/19 12:10 APTT 28.9 SEC (23.5-35.8) 08/10/19 12:10 Sodium 137.9 mmol/L (137-145) 08/13/19 05:25 Potassium 3.8 mmol/L (3.6-5.0) 08/13/19 05:25 Chloride 100 mmol/L (98-107) 08/13/19 05:25 Carbon Dioxide 33 mmol/L (22-30) H 08/13/19 05:25 Anion Gap 5 (5-19) 08/13/19 05:25 BUN 27 mg/dL (7-20) H 08/13/19 05:25 Creatinine 1.37 mg/dL (0.52-1.25) H 08/13/19 05:25 Est GFR ( Amer) 45 (>60) L 08/13/19 05:25 Est GFR (MDRD) Non-Af 37 (>60) L 08/13/19 05:25 Glucose 93 mg/dL (75-110) 08/13/19 05:25 Calcium 8.8 mg/dL (8.4-10.2) 08/13/19 05:25 Iron 21.4 ug/dL (37-170) L 08/10/19 12:10 TIBC 265 ug/dL (250-450) 08/10/19 12:10 % Saturation 8 % 08/10/19 12:10 Ferritin 436.00 ng/mL (11.1-264.0) H 08/10/19 12:10 Total Bilirubin 0.4 mg/dL (0.2-1.3) 08/13/19 05:25 Direct Bilirubin 0.1 mg/dL (0.0-0.4) 08/13/19 05:25 Neonat Total Bilirubin Not Reportable 08/13/19 05:25 Neonat Direct Bilirubin Not Reportable 08/13/19 05:25 Neonat Indirect Bili Not Reportable 08/13/19 05:25 AST 20 U/L (14-36) 08/13/19 05:25 ALT 11 U/L (<35) 08/13/19 05:25 Alkaline Phosphatase 68 U/L (38-126) 08/13/19 05:25 Creatine Kinase 423 U/L (30-135) H 08/10/19 12:10 CK-MB (CK-2) 7.08 ng/mL (<4.55) H 08/10/19 12:10 Troponin I < 0.012 ng/mL 08/10/19 12:10 Total Protein 5.8 g/dL (6.3-8.2) L 08/13/19 05:25 Albumin 3.1 g/dL (3.5-5.0) L 08/13/19 05:25 Vitamin B12 479.0 pg/mL (239-931) 08/10/19 12:10 Folate > 20.00 ng/mL (>2.76) 08/10/19 12:10 Urine Color YELLOW 08/10/19 13:15 Urine Appearance CLEAR 08/10/19 13:15 Urine pH 5.0 (5.0-9.0) 08/10/19 13:15 Ur Specific [place] 1.008 08/10/19 13:15 Urine Protein NEGATIVE mg/dL (NEGATIVE) 08/10/19 13:15 Urine Glucose (UA) NEGATIVE mg/dL (NEGATIVE) 08/10/19 13:15 Urine Ketones NEGATIVE mg/dL (NEGATIVE) 08/10/19 13:15 Urine Blood NEGATIVE (NEGATIVE) 08/10/19 13:15 Urine Nitrite (Reflex) NEGATIVE (NEGATIVE) 08/10/19 13:15 Urine Bilirubin NEGATIVE (NEGATIVE) 08/10/19 13:15 Urine Urobilinogen NEGATIVE mg/dL (<2.0) 08/10/19 13:15 Leukocyte Esterase Rfl NEGATIVE (NEGATIVE) 08/10/19 13:15 Urine RBC (Auto) 0 /HPF 08/10/19 13:15 Urine WBC (Reflex) 1 /HPF 08/10/19 13:15 Squamous Epi Cells Auto 2 /HPF 08/10/19 13:15 Urine Mucus (Auto) RARE /LPF 08/10/19 13:15 Urine Ascorbic Acid NEGATIVE (NEGATIVE) 08/10/19 13:15 Stool Occult Blood NEGATIVE (NEGATIVE) 08/11/19 08:40 08/10/19 12:10 CK-MB (CK-2) 7.08 H Troponin I < 0.012 Impressions: Chest X-Ray 08/10/19 11:11 IMPRESSION: Low inspiratory lung volumes and left basilar atelectasis. Head CT 08/10/19 11:11 IMPRESSION: MILD CHRONIC MICROVASCULAR ISCHEMIA. NO ACUTE IMAGING FINDINGS IN THE BRAIN. EVIDENCE OF ACUTE STROKE: NO. Ankle X-Ray 08/10/19 13:35 IMPRESSION: No acute osseous abnormality of the left foot. Hip/Pelvis X-Ray 08/10/19 13:35 IMPRESSION: 1. Uncomplicated left MARIE. 2. No acute osseous abnormality of the right hip. Chest X-Ray 08/12/19 00:00 IMPRESSION: Linear atelectasis in the left base. No other significant findings. Plan Health Concerns: CKD and CKD anemia. Patient counseled on her CKD and was provided with information about CKD diet. Tried to make an appoint with nephrology as outpatient however did require referral from PCP. Patient was advised to follow-up with PCP get a referral to see Dr. Lee or Dr. Harper engine assembly supervisor as outpatient as soon as possible. Patient voiced understanding. Plan of Treatment: Patient initially was going to be transferred to [facility] assisted living but then patient wanted to go home first get ready before committing herself to placement. She will be discharged home and will be going to [facility] assisted living. Please refer to discharge planning note. Time Spent: Greater than 30 Minutes Stroke Is this a Stroke Patient?: No Acute Heart Failure - Is this a Heart Failure Patient?: No
--- NOTE | 2019-08-13 13:31 | PDOC PROGRESS REPORT ---
Subjective Progress Note for:: 08/12/19 Subjective:: MARILU RIZO is a 79 year old female past medical history of CKD, DJD, rheumatoid arthritis, hypertension, chronic diarrhea and recent rhabdomyolysis for which she was hospitalized at [facility] and was transferred to [place] [facility] where she stayed for 3 weeks and was sent home recently. Patient is brought to ED by her family for evaluation of slurred speech and al tered mental status after a mechanical fall. Patient had a fall on Friday, when she was using her walker she twisted her ankle and fell backwards, did not sustain any head trauma, did not lose consc iousness, fall was witnessed by her son who is at the bedside who states that he did not notice any convulsions. She denies any lightheadedness or palpitation prior to the fall. Patient was taken to an urgent care where they did x-ray of her ankle which did not show any acute abnormalities and patient was sent home. Since the fall patient family have noticed that patient's speech seems slurred at times and she seems confused. Patient herself is very pleasant, stating that she feels like her tongue gets heavier once a while, otherwise denies any focal neurological deficits, she is alert oriented x4, very pleasant and gives very accurate information about her history of present illness and past medical history. CT, ankle x-ray, pelvic x-ray all negative for any acute abnormalities. CP positive for NICK/CKD. Hospitalist consulted for admission. 08/11/2018. No acute events overnight. No recurrence of fall, patient has been receiving physical therapy. Renal function is improved. Denies any fever, chills, nausea, vomiting, diarrhea, constipation or any urinary symptoms. 08/12/2019. No acute events overnight. Patient wants to be transferred to assisted living instead of being discharged home. Patient was going to be transferred to [facility] assisted but did not happen, please refer to chart planning note. Reason For Visit: ACUTE RENAL FAILURE Physical Exam Vital Signs: Temp Pulse Resp BP Pulse Ox 98.3 F 76 18 124/60 95 08/13/19 07:44 08/13/19 07:44 08/13/19 07:44 08/13/19 07:44 08/13/19 07:44 Intake & Output 08/12/19 08/13/19 08/14/19 06:59 06:59 06:59 Intake Total 3020 1720 Balance 3020 1720 Weight 78.9 kg 78 kg Results Laboratory Results: 08/13/19 05:25 08/13/19 05:25 08/13/19 08/13/19 05:25 05:25 WBC 5.0 RBC 2.39 L Hgb 8.6 L Hct 25.5 L MCV 107 H MCH 36.0 H MCHC 33.8 RDW 13.3 Plt Count 164 Seg Neutrophils % 34.6 L Sodium 137.9 Potassium 3.8 Chloride 100 Carbon Dioxide 33 H Anion Gap 5 BUN 27 H Creatinine 1.37 H Est GFR ( Amer) 45 L Glucose 93 Calcium 8.8 Total Bilirubin 0.4 AST 20 Alkaline Phosphatase 68 Total Protein 5.8 L Albumin 3.1 L 08/10/19 08/10/19 12:10 12:10 Creatine Kinase 423 H CK-MB (CK-2) 7.08 H Troponin I < 0.012 Impressions: Head CT 08/10/19 11:11 IMPRESSION: MILD CHRONIC MICROVASCULAR ISCHEMIA. NO ACUTE IMAGING FINDINGS IN THE BRAIN. EVIDENCE OF ACUTE STROKE: NO. Ankle X-Ray 08/10/19 13:35 IMPRESSION: No acute osseous abnormality of the left foot. Hip/Pelvis X-Ray 08/10/19 13:35 IMPRESSION: 1. Uncomplicated left MARIE. 2. No acute osseous abnormality of the right hip. Chest X-Ray 08/12/19 00:00 IMPRESSION: Linear atelectasis in the left base. No other significant findings. Assessment and Plan - Diagnosis (1) Acute kidney injury superimposed on CKD Is this a current diagnosis for this admission?: Yes Plan: Multifactorial. Improving creatinine 1.94 down from 2.8 on admission. Baseline creatinine 2.3. Likely due to low p.o. intake since fall as well as history of chronic NSAID and PPI intake. Continue to telemetry, monitor volume status, avoid nephrotoxic meds, cautious volume resuscitation guided by volume status. CMP tomorrow. (2) History of rheumatoid arthritis Is this a current diagnosis for this admission?: Yes Plan: Not on acute flare. Home meds are methotrexate, folic acid. Restart home meds. Monitor WBC. Outpatient PCP and rheumatology follow-up. (3) Depression Is this a current diagnosis for this admission?: Yes Plan: Denies any suicidal or homicidal ideation. Restart home meds. Outpatient PCP and psychiatry follow-up. (4) Chronic diarrhea Is this a current diagnosis for this admission?: Yes Plan: Takes antidiarrheal chronically. Resume home meds. Monitor volume status and electrolytes. (5) Accidental fall Qualifiers: Encounter type: initial encounter Qualified Code(s): W19.XXXA - Unspecified fall, initial encounter Is this a current diagnosis for this admission?: Yes Plan: CT head, pelvis x-ray and ankle x-ray negative for any acute abnormalities. Fall precautions, seizure precautions, PT. (6) Hypertension Is this a current diagnosis for this admission?: Yes Plan: Euvolemic. SBP 941 25. Asymptomatic. Home meds are Lasix 60 mg p.o. daily, carvedilol 25 mg p.o. twice daily, telmisartan 80 mg p.o. daily. Continue carvedilol 25 mg p.o. twice daily. PRN hydralazine and metoprolol. Hold telmisartan and Lasix. Patient advised to follow-up with PCP and nephrology and to restart olmesartan and Lasix if needed. Currently BPs are controlled with carvedilol 25 mill p.o. twice daily. (7) Anemia in CKD (chronic kidney disease) Is this a current diagnosis for this admission?: Yes
[2019-08-13 14:33] VITALS: BP 125/60
[2019-08-14] MEDS ORDERED: METHOTREXATE SODIUM 2.5 MG TABLET PO SCH (10:00)
[2019-08-14] MEDS ORDERED: ERGOCALCIFEROL (VITAMIN D2) 50000 UNIT (1.25 MG) CAPSULE PO SCH (10:00)
== END 2019-08-13 14:41 | disposition home or self-care (01) ==
LOC: ER 10:49 → EH 14:57 → INTOOBSV 14:57 → 4N 16:44
PROVIDERS: ADMIT Internal Medicine; ATTEND Internal Medicine
DX: I12.9 Hypertensive chronic kidney disease with stage 1 through stage 4 chronic kidney disease, or unspecified chronic kidney disease (principal); N18.9 Chronic kidney disease, unspecified; N17.9 Acute kidney failure, unspecified; D63.1 Anemia in chronic kidney disease; M06.9 Rheumatoid arthritis, unspecified; F32.9 Major depressive disorder, single episode, unspecified; K52.9 Noninfective gastroenteritis and colitis, unspecified; M19.90 Unspecified osteoarthritis, unspecified site; M25.551 Pain in right hip; X50.1XXA Overexertion from prolonged static or awkward postures, initial encounter; W19.XXXA Unspecified fall, initial encounter; G47.30 Sleep apnea, unspecified; E78.5 Hyperlipidemia, unspecified; R47.81 Slurred speech; Z79.899 Other long term (current) drug therapy; Z90.49 Acquired absence of other specified parts of digestive tract; Z96.642 Presence of left artificial hip joint; Z91.81 History of falling
CPT/HCPCS: 93005; 99291; 36415 ×4; 82553; 82607; 82550; 82728; 82746; 83540; 83550; 85025 ×4; 85610; 85730; 82272; 85045; 80053 ×4; 81001; 84484; 73610; 71045 ×2; 73502; 70450; 93010; 94660 ×3; 97530; 97116; 97163; 97535; 97167; A9270 ×47; J7030 ×2; G0378; J3490

== ENCOUNTER → 2020-03-27 | Outpatient (CLI) | payer MEDICARE, OTHER ==
--- NOTE | 2020-03-27 11:41 | RADIOLOGY REPORT (SQ) ---
EXAM DESCRIPTION: DUPLEX ART/DAVE FLOW COMPLETE IMAGES COMPLETED DATE/TIME: 03/27/2020 11:21 am REASON FOR STUDY: N18.3 CHRONIC KIDNEY DISEASE, STAGE 3 (MODERATE), N17.9 ACUTE KIDNEY FAILUR N18.3 CHRONIC KIDNEY DISEASE, STAGE 3 (MODERATE) N17.9 ACUTE KIDNEY FAILURE, UNSPECIFIED R10.9 UNSPECIFI ED ABDOMINAL PAIN COMPARISON: None. TECHNIQUE: Realtime and static grayscale images acquired. Selected color Doppler, velocities and spe ctral images recorded. LIMITATIONS: Inability of patient to hold breath and overlying bowel gas. FINDINGS: RIGHT KIDNEY: RENAL ARTERY VELOCITIES: 88.6 cm/sec. Segmental artery velocity 31.0 cm/sec. RENAL VEIN: Color doppler flow present, patent. VELOCITY RATIO: 0.8. Normal waveforms. KIDNEY: Normal size. No significant pathology. LEFT KIDNEY: RENAL ARTERY VELOCITIES: 40.7 cm/sec. Segmental artery velocity 17.6 cm/sec. RENAL VEIN: Color doppler flow present, patent. VELOCITY RATIO: 0.5. Normal waveforms. KIDNEY: Normal size. No significant pathology. BLADDER: Normal. OTHER: No other significant finding. IMPRESSION: Limited study as described. No evidence of renal artery stenosis. COMMENT: NORMAL RENAL ARTERY/AORTA VELOCITY RATIO IS LESS THAN OR EQUAL TO 3.5. TECHNICAL DOCUMENTATION: JOB ID: [id number] 2010 [employer]- All Rights Reserved Reading location - IP/workstation name: [email or web address]
== END ==
LOC: RAD 09:59
PROVIDERS: ATTEND Physician Assistant Medical
DX: N17.9 Acute kidney failure, unspecified (principal); N18.3 Chronic kidney disease, stage 3 (moderate); R10.9 Unspecified abdominal pain
CPT/HCPCS: 93975

== ENCOUNTER → 2020-05-29 | Outpatient (CLI) | payer MEDICARE, OTHER ==
[2020-05-29 09:49] LABS: HEMATOCRIT 35.1 % (36.0-47.0); HEMOGLOBIN 11.8 g/dL (12.0-15.5); MEAN CORPUSCULAR HEMOGLOBIN 35.4 pg (27.0-33.4); MEAN CORPUSCULAR HGB CONC 33.5 g/dL (32.0-36.0); MEAN CORPUSCULAR VOLUME 106 fl (80-97); PLATELET COUNT 211 10^3/uL (150-450); RED BLOOD COUNT 3.32 10^6/uL (3.72-5.28); RED CELL DISTRIBUTION WIDTH 14.1 % (11.5-14.0); WHITE BLOOD COUNT 7.1 10^3/uL (4.0-10.5)
[2020-05-29 10:21] LABS: ALBUMIN 4.1 g/dL (3.5-5.0); ANION GAP 10 (5-19); BLOOD UREA NITROGEN 45 mg/dL (7-20); CALCIUM 9.4 mg/dL (8.4-10.2); CARBON DIOXIDE 30 mmol/L (22-30); CHLORIDE 98 mmol/L (98-107); GLUCOSE 110 mg/dL (75-110); PHOSPHORUS 3.8 mg/dL (2.5-4.5); POTASSIUM 4.3 mmol/L (3.6-5.0)
[2020-05-29 10:26] LABS: APPEARANCE,URINE SLIGHTLY-CLOUDY; BILIRUBIN,URINE NEGATIVE (NEGATIVE); COLOR,URINE STRAW; GLUCOSE, URINE NEGATIVE (NEGATIVE); KETONES,URINE NEGATIVE (NEGATIVE); LEUKOCYTE ESTERASE,URINE LARGE (NEGATIVE); NITRITE,URINE NEGATIVE (NEGATIVE); PROTEIN,URINE NEGATIVE (NEGATIVE); URINE SPECIFIC GRAVITY 1.006; UROBILINOGEN,URINE NEGATIVE mg/dL (<2.0)
== END ==
LOC: OD 09:13
PROVIDERS: ATTEND Physician Assistant Medical
DX: N18.3 Chronic kidney disease, stage 3 (moderate) (principal); N39.0 Urinary tract infection, site not specified
CPT/HCPCS: 36415; 80069; 81001; 83970; 85027